=== PATIENT | male | born 1945 | race Caucasian/White ===

== ENCOUNTER 2017-12-14 06:20 | Day surgery (SDC) | payer OTHER ==
[2017-12-09 15:33] LABS: Urine Appearance CLEAR; Urine Bilirubin NEGATIVE (NEG); Urine Blood NEGATIVE (NEG); Urine Color YELLOW; Urine Glucose NEGATIVE (NEG); Urine Protein TRACE (NEG); Urine Specific Gravity 1.025 (1.005-1.030); Urine Urobilinogen 0.2 mg/dL (0.2-1.0); Urine pH 5.5 (5.0-7.0)
[2017-12-09 15:34] LABS: Urine Microscopic Reflex ORDER UMIC
--- NOTE | 2017-12-09 15:34 | RAD REPORT ---
EXAM DESCRIPTION: RAD - Chest Pa And Lat (2 Views) - 12/09/2017 3:24 pm CLINICAL HISTORY: Preop chest, pending prostate surgery COMPARISON: None. TECHNIQUE: PA and lateral views of the chest were obtained. FINDINGS: The lungs are clear of a peripheral infiltrate, mass or failure finding. Minimal scarring changes are present. Diaphragm is flattened with increased retrosternal space. Heart size is normal and central vasculature is within normal limits. No pleural effusion or pneumothorax seen. Midthor acic disc and endplate degenerative changes are present. No acute bone findings seen. No blastic oneal ges to the skeleton identifiable. No aortic abnormality. IMPRESSION: Mild COPD pattern with no acute cardiopulmonary finding.
[2017-12-09 15:46] LABS: Absolute Lymphocytes (CBC) 2.9 K/uL (0.7-4.9); Absolute Neutrophil 9.5 K/uL (1.8-8.0); Basophils % 0.6 % (0-1.3); Eosinophils % 1.2 % (0-4.4); Hematocrit 40.8 % (39.6-49.0); Lymphocytes % 21.4 % (15.3-44.8); MCH 33.9 pg (27.0-35.0); MCV 98.5 fL (80-100); MPV 7.9 fL (7.6-11.3); Monocytes % 7.3 % (3.3-12.3); RBC Red Blood Cell Count 4.14 M/uL (4.33-5.43)
[2017-12-09 15:49] LABS: Protime INR 0.98
[2017-12-09 15:50] LABS: Urine Amorphous Sediment 1+ /HPF (NONE SEEN); Urine Bacteria NONE SEEN /HPF (NONE SEEN); Urine Culture Reflex Order NOT NEEDED; Urine Mucus LIGHT /HPF (NONE SEEN); Urine RBC NONE SEEN /HPF (NONE SEEN)
[2017-12-09 16:13] LABS: Potassium 4.3 mmol/L (3.5-5.1)
--- NOTE | 2017-12-09 16:27 | EKG ---
Test Date: 2017-12-09 Test Time: 15:25:29 [employer]ision [employer] Polisher: SUMANTH MEASUREMENT RESULTS: Intervals: Rate: 76 UT: 152 QRSD: 92 QT: 364 QTc: 409 [place]: P: 77 UT: 152 QRS: 75 T: 66 INTERPRETIVE STATEMENTS: Sinus rhythm with premature atrial complexes Incomplete right bundle branch block Borderline ECG Compared to ECG 03/02/2001 12:11:00 Atrial premature complex(es) now present Incomplete right bundle-branch block now present Myocardial infarct finding no longer present Electronically Signed On 12-09-17 16:26:55 CDT by Bonilla Patino
--- OUTSIDE RECORDS SUMMARY | 2017-12-14 06:50 | XMS REPORT | Continuity of Care Document ---
:1945 Author Organization Interface Problems Problem Status Onset Classification Date Comments Source Date Reported UNK Active 02/12/20 [facility] 17 M54.16 M47.816 Active 02/12/20 [facility] 17 DX" M47.816= Active 10/16/19 [facility] 17 Final: 03/13/2017 [facility] Radiculopathy, lumbar region Diaz's palsy Resolved Problem 10/12/2017 [place] BPH (<span Active Problem 10/12/2017 ID="[id number] [place] [place] [facility]">Confirmed</s [facility] kraft>) Chronic pain Active Problem 10/12/2017 [place] Gastric ulcer Resolved Problem 10/12/2017 [place] HTN (<span Active Problem 10/12/2017 ID="[id number] [place] [place] 9">Confirmed</s [facility] kraft>) Shingles Resolved Problem 10/12/2017 [place] SPONDYLOSIS W/O Active [facility] MYELOPATHY OR RADICULOPA RADICULOPATHY, Active [facility] LUMBAR REGION Medications Medication Details Route Status Patient Ordering Order Source Instructions Provider Date Senokot 2 tab, Route: No Longer PO, Dosing Active 2016 [facility] Weight 66.364, kg, Daily, Start date: 03/11/17 9:00:00 MAT REPAIRER, Duration: 30 day, Stop date: 04/09/17 9:00:00 MAT REPAIRER heparin sodium, 5,000 unit, No Longer porcine 2500 Route: SUB-Q, Active 2016 UNT/ML Injectable Drug form: INJ, Solution Q12H, Dosing Weight 66.364, kg, Start date: 03/11/17 8:00:00 MAT REPAIRER, Duration: 30 day, Stop date: 04/09/17 21:00:00 MAT REPAIRER Famotidine 20 MG 20 mg, 1 tab, Inactive Oral Tablet Route: PO, Drug 2016 [Pepcid] form: TAB, Q12H, Dosing Weight 66.364, kg, Start date: 03/10/17 21:00:00 MAT REPAIRER, Duration: 30 day, Stop date: 04/09/17 9:00:00 MAT REPAIRER Vancomycin 1 gm, Route: Inactive IVPB, Drug 2016 [facility] form: INJ, Q12H, Dosing Weight 66.364, kg, Start date: 03/10/17 21:00:00 MAT REPAIRER, Duration: 4 doses or times, Stop date: 03/12/17 9:00:00 MAT REPAIRER, ABX Indication: Surgical Prophylaxis Docusate Sodium 100 mg, 1 cap, Inactive 100 MG Oral Route: PO, BID, 2016 [facility] Capsule [Colace] Dosing Weight 66.364, kg, Start date: 03/10/17 17:00:00 MAT REPAIRER, Duration: 30 day, Stop date: 04/09/17 9:00:00 MAT REPAIRER Meperidine 12.5 mg, Route: Inactive IVP, Q30Min, 2016 [facility] Dosing Weight 66.364, kg, PRN Other -See Comment, For shivering, Start date: 03/10/17 13:51:00 MAT REPAIRER, Duration: 2 doses or times, Stop date: Limited # of times Ondansetron 4 mg, Route: Inactive IVP, ONCE, 2016 [facility] Dosing Weight 66.364, kg, PRN Nausea & Vomiting, Start date: 03/10/17 13:51:00 MAT REPAIRER Diphenhydramine 12.5 mg, Route: Inactive IVP, Drug form: 2016 [facility] INJ, Q6H, Dosing Weight 66.364, kg, PRN Itching, Start date: 03/10/17 13:51:00 MAT REPAIRER, Duration: 30 day, Stop date: 04/09/17 13:50:00 MAT REPAIRER Albuterol 0.83 2.49 mg, Route: Inactive MG/ML Inhalant NEB, Q20Min, 2016 [facility] Solution Dosing Weight 66.364, kg, PRN Wheezing, Priority: STAT, Start date: 03/10/17 13:51:00 MAT REPAIRER, Duration: 30 day, Stop date: 04/09/17 13:50:00 MAT REPAIRER Flumazenil 0.2 mg, Route: Inactive IVP, PRN, 2016 [facility] Dosing Weight 66.364, kg, PRN Benzodiazepine Reversal, Initial dose, Start date: 03/10/17 13:51:00 MAT REPAIRER, Duration: 30 day, Stop date: 04/09/17 13:50:00 MAT REPAIRER Naloxone 0.4 mg, Route: Inactive 03/[facility] IVP, Q2MIN, 2016 [facility] Dosing Weight 66.364, kg, PRN Narcotic Reversal, Start date: 03/10/17 13:51:00 MAT REPAIRER, Duration: 8 doses or times, Stop date: Limited # of times Hydralazine 10 mg, Route: Inactive IVP, Q20Min, 2016 [facility] Dosing Weight 66.364, kg, PRN Elevated BP, Start date: 03/10/17 13:51:00 MAT REPAIRER, Duration: 2 doses or times, Stop date: Limited # of times Acetaminophen 1,000 mg, Inactive Route: PO, Drug 2016 [facility] form: TAB, ONCE, Dosing Weight 66.364, kg, PRN Pain Score 1-3, Start date: 03/10/17 13:51:00 MAT REPAIRER esmolol 10 mg, Route: Inactive IVP, Q5Min, 2016 [facility] Dosing Weight 66.364, kg, PRN Other -See Comment, Start date: 03/10/17 13:51:00 MAT REPAIRER, Duration: 5 doses or times, Stop date: Limited # of times Labetalol 10 mg, Route: Inactive IVP, Q5Min, 2016 [facility] Dosing Weight 66.364, kg, PRN Elevated BP, Start date: 03/10/17 13:51:00 MAT REPAIRER, Duration: 5 doses or times, Stop date: Limited # of times Oxycodone 10 mg, Route: Inactive PO, Drug form: 2016 [facility] TAB, Q4H, Dosing Weight 66.364, kg, PRN Pain Score 7-10, Start date: 03/10/17 13:51:00 MAT REPAIRER, Duration: 30 day, Stop date: 04/09/17 13:50:00 MAT REPAIRER Fentanyl 25 microgram, Inactive Route: IVP, 2016 [facility] Q5Min, Dosing Weight 66.364, kg, PRN Pain Score 4-6, Priority: Routine, Start date: 03/10/17 13:51:00 MAT REPAIRER, Duration: 4 doses or times, Stop date: Limited # of times Hydromorphone 0.5 mg, Route: Inactive IVP, Q5Min, 2016 [facility] Dosing Weight 66.364, kg, PRN Pain Score 7-10, Start date: 03/10/17 13:51:00 MAT REPAIRER, Duration: 4 doses or times, Stop date: Limited # of times Acetaminophen 325 1 tab, PO, Q4H, Active MG / Hydrocodone PRN Pain, 0 2016 [facility] Bitartrate 5 MG Refill(s) Oral Tablet magnesium citrate 300 ml, Route: Inactive PO, Drug Form: 2016 [facility] LIQ, Dosing Weight 66.364, kg, ONCE, PRN Constipation, Start date: 03/10/17 13:19:00 MAT REPAIRER Acetaminophen 325 1 tab, Route: Inactive MG / Hydrocodone PO, Drug Form: 2016 [facility] Bitartrate 5 MG TAB, Dosing Oral Tablet Weight 66.364, kg, Q4H, PRN Pain, Start date: 03/10/17 13:19:00 MAT REPAIRER, Duration: 30 day, Stop date: 04/09/17 13:18:00 MAT REPAIRER Dilaudid 1 mg, Route: Inactive IV, Q3H, Dosing 2016 [facility] Weight 66.364, kg, PRN Pain, Start date: 03/10/17 13:19:00 MAT REPAIRER, Duration: 30 day, Stop date: 04/09/17 13:18:00 MAT REPAIRER Tylenol 650 mg, Route: Inactive PO, Drug form: 2016 [facility] TAB, Q4H, Dosing Weight 66.364, kg, PRN Pain, Start date: 03/10/17 13:19:00 MAT REPAIRER, Duration: 30 day, Stop date: 04/09/17 13:18:00 MAT REPAIRER Zofran 4 mg, Route: Inactive IV, Drug form: 2016 [facility] INJ, Q8H, Dosing Weight 66.364, kg, PRN Nausea, Start date: 03/10/17 13:19:00 MAT REPAIRER, Duration: 30 day, Stop date: 04/09/17 13:18:00 MAT REPAIRER Sodium Chloride 1,000 mL, Rate: Inactive MH 0.9% IV 1000 mL 75 ml/hr, 2016 Infuse over: 13.3 hr, Route: IV, Dosing Weight 66.364 kg, Total Volume: 1,000, Start date: 03/10/17 13:19:00 MAT REPAIRER, Duration: 30 day, Stop date: 04/09/17 13:18:00 MAT REPAIRER, 1.8, m2 metoclopramide Route: IV, Drug Inactive MH (ANES) form: INJ, 2016, Stop date: 03/10/17 13:09:00 MAT REPAIRER acetaminophen Route: IV, Drug Inactive MH (ANES) 10 mg form: [id number] Start date: 03/10/17 11:46:00 MAT REPAIRER, Stop date: 03/10/17 12:46:00 MAT REPAIRER dexamethasone Route: IV, Drug Inactive MH (ANES) form: INJ, 2016, Stop date: 03/10/17 11:29:00 MAT REPAIRER lidocaine (ANES) Route: IV, Drug Inactive MH form: INJ, 2016, Stop date: 03/10/17 11:19:00 MAT REPAIRER fentaNYL (ANES) Route: IV, Drug Inactive form: INJ, 2016, Stop date: 03/10/17 11:19:00 MAT REPAIRER midazolam (ANES) Route: IV, Drug Inactive form: SOLN, 2016, Stop date: 03/10/17 11:19:00 MAT REPAIRER ondansetron Route: IV, Drug Inactive MH (ANES) form: INJ, 2016, Stop date: 03/10/17 11:19:00 MAT REPAIRER propofol (ANES) Route: IV, Drug Inactive MH form: [id number], Stop date: 03/10/17 11:19:00 MAT REPAIRER rocuronium (ANES) Route: IV, Drug Inactive MH form: INJ, 2016, Stop date: 03/10/17 11:19:00 MAT REPAIRER ketAMINE (ANES) Route: IV, Drug Inactive MH form: [id number], Stop date: 03/10/17 11:19:00 MAT REPAIRER phenylephrine Route: IV, Drug Inactive 11/22/ MH (ANES) form: INJ, 2016 ONCE, Stop date: 03/10/17 11:14:00 MAT REPAIRER vancomycin (ANES) Route: IV, Drug Inactive 1000 mg form: INJ, 2016 Start date: 03/10/17 10:29:00 MAT REPAIRER, Stop date: 03/10/17 11:29:00 MAT REPAIRER Lactated Ringers Route: IV, Inactive Injection IV Total Volume: 2016 (ANES) 1000 mL 1,000, Start date: 03/10/17 10:12:00 MAT REPAIRER, Stop date: 03/10/17 11:12:00 MAT REPAIRER Calcium Chloride 1,000 mL, Rate: Inactive 0.0014 MEQ/ML / 25 ml/hr, 2016 Potassium Infuse over: 40 Chloride 0.004 hr, Route: IV, MEQ/ML / Sodium Dosing Weight Chloride 0.103 66.364 kg, MEQ/ML / Sodium Total Volume: Lactate 0.028 1,000, Start MEQ/ML Injectable date: 03/10/17 Solution 8:52:00 MAT REPAIRER, Duration: 30 day, Stop date: 04/09/17 8:51:00 MAT REPAIRER, 1.8, m2 Fentanyl 25 microgram, Active TOP, 0 2016 Refill(s) Acetaminophen 325 1 tab, PO, Q6H, Active MG / Hydrocodone 0 Refill(s) 2016 Bitartrate 10 MG Oral Tablet losartan 100 mg 100 mg=1 tab, Active oral tablet PO, Daily, 0 2016 Refill(s) NIFEdipine 30 mg 30 mg=1 tab, Active oral tablet, PO, Daily, as 2017 extended release needed during winter season, 0 Refill(s) tamsulosin 0.4 mg 0.4 mg=1 cap, Active oral capsule PO, Daily, as 2016 needed pantoprazole 40 40 mg=1 tab, Active MH mg oral enteric PO, Daily, 0 2016 coated tablet Refill(s) Allergies, Adverse Reactions, Alerts Substance Category Reaction Severity Reaction Status Date Comments Source type Reported penicillins Assertion Drug Active [facility] Immunizations Immunization Date Given Site Status Last Updated Comments Source Results Order Name Results Value Reference Date Interpretation Comments Source Range BLOOD BANK Antibody Negative 03/03 RESULTS Scrn /2016 [facility] (03/03/17 9:27 AM) BLOOD BANK ABO/Rh B POS 03/03 RESULTS /2016 [facility] PANEL B/C Ratio 12 6 - 25 03/03 [facility] CHEM PANEL AGAP 11.0 meq/L 10.0 - 03/03 [facility] 20.0 /2016 [facility] CHEM PANEL Globulin 4.2 g/dL 2.7 - 4.2 03/03 [facility] CHEM PANEL A/G Ratio 0.9 0.7 - 1.6 03/03 [facility] CHEM PANEL eGFR 54 03/03 Result Comment: The eGFR is calculated using the CKD-EPI formula. In most young, healthy individuals the eGFR will be >90 mL/ min/1.73m2. The eGFR declines with age. An eGFR of 60-89 may be normal in mL/min/1.7 some populations, particularly the elderly, for whom the CKD-EPI formula has not been extensively validated. Use of the eGFR is not recommended in the following populations: [facility] 3m2 Individuals with unstable creatinine concentrations, including patients and those with serious co-morbid conditions. Patients with extremes in muscle mass or diet. The data above are obtained from the National Kidney Disease Education Program (NKDEP) which additionally recommends that when the eGFR is used in patients with extremes of body mass index for purposes of drug dosing, the eGFR should be multiplied by the estimated BMI. CHEM PANEL Bili Total 0.6 mg/dL 0.2 - 1.3 03/03 [facility] CHEM PANEL Calcium Lvl 9.2 mg/dL 8.5 - 10.5 03/03 [facility] PAN[facility] CO2 27 meq/L 24 - 32 03/03 [facility] CHEM PANEL Alk Phos 96 unit/L 39 - 136 03/03 [facility] CHEM PANEL Albumin Lvl 3.8 g/dL 3.5 - 5.0 03/03 [facility] CHEM PANEL Total 8.0 g/dL 6.4 - 8.4 03/03 [facility] CHEM PANEL Glucose Lvl 96 mg/dL 70 - 99 03/03 [facility] CHEM PANEL ALT 9 unit/L 0 - 65 03/03 [facility] CHEM PANEL AST 8 unit/L 0 - 37 03/03 [facility] CHEM PANEL BUN 16 mg/dL 7 - 22 03/03 [facility] CHEM PANEL Sodium Lvl 140 meq/L 135 - 145 03/03 [facility] CHEM PANEL Creatinine 1.34 mg/dL 0.50 - 03/03 [facility] Lvl 1.40 [facility] CHEM PANEL Chloride Lvl 106 meq/L 95 - 109 03/03 [facility] CHEM PANEL Potassium 4.0 meq/L 3.5 - 5.1 03/03 Lvl /2016 [facility] HEMATOLOGY Basophils # 0.1 K/CMM 0.0 - 0.2 03/03 [facility] HEMATOLOGY Monocytes # 0.7 K/CMM 0.0 - 0.8 03/03 [facility] HEMATOLOGY Lymphocytes 2.7 K/CMM 1.0 - 5.5 03/03 MH /2016 [facility] HEMATOLOGY Basophils 0.7 % 0.0 - 1.0 03/03 [facility] HEMATOLOGY Eosinophils 0.5 % 0.0 - 4.0 03/03 [facility] HEMAT[facility] Monocytes 6.9 % 2.0 - 12.0 03/03 [facility] HEMAT[facility]Y Lymphocytes 28.5 % 20.0 - 03/03 40.0 [facility] HEMATOLOGY Segs-Bands # 6.0 K/CMM 1.5 - 8.1 03/03 [facility] HEMATOLOGY Segs 63.4 % 45.0 - 03/03 75.0 /2016 [facility] HEMATOLOGY INR 0.94 0.85 - 03/03 1.17 [facility] HEMATOLOGY PT 12.6 s 12.0 - 03/03 14.7 [facility] HEMATOLOGY PTT 31.8 s 22.9 - 03/03 35.8 [facility] HEMATOLOGY MPV 8.0 fL 7.4 - 10.4 03/03 [facility] HEMATOLOGY Platelet 271 K/CMM 133 - 450 03/03 [facility] HEMATOLOGY RDW 12.9 % 11.5 - 03/03 MH 14. [facility] HEMATOLOGY MCHC 33.4 g/dL 32.0 - 03/03 MH 36.0 [facility] HEMATOLOGY MCH 33.0 pg 27.0 - 03/03 MH 31.0 [facility] HEMATOLOGY MCV 98.8 fL 80.0 - 03/03 94.0 [facility] HEMATOLOGY Hct 36.1 % 42.0 - 03/03 MH 54.0 [facility] HEMATOLOGY Hgb 12.1 g/dL 14.0 - 11 MH 18.0 [facility] HEMATOLOGY WBC 9.5 K/CMM 3.7 - 10.4 03/03 [facility] HEMATOLOGY RBC 3.66 M/CMM 4.70 - 11 6.10 [facility] Spine Spine lumbar Patient Name: HILARIA TREVINO 10/21 - lumbar wo wo contrast - [facility] contrast CT : 1945; Age: 71 years y/o Male CT MR: [id number] Read by: Abrahan Rogers MD Dictated Date/time: 10/21/16 10:32 Electronically Signed by: Abrahan Rogers MD 10/21/16 11:11 FINAL REPORT Study: Spine lumbar wo contrast CT 10/21/2016 8:22 AM CDT Ordering Physician: Bijan Mancera MD Comparison: None CT Radiation Dose DLP mGy-cm Clinical Indication: CT DLP 375 mGy-cm PF - lumbar spondylosis, pt states he's been having a lot of back pain x 1 month. He's had 6 previous back surgeries and they believe it might be scar tissue; low back pain Multiple computerized axial tomograms of the lumbar spine were obtained without contrast. 2-D sagittal and coronal reformation images were obtained. Vascular calcification at the normal caliber abdomin al aorta is noted extending into the renal arteries bilaterally. Renovascular calcification is noted at the renal muriel bilaterally. A 12.5 mm cyst is noted at the ventral cortex of the mid left kidney. Minimal lumbar curvature convex to the left. Straightening of usual lumbar lordosis. Lumbar vertebral body heights are maintained. There is no acute fracture, dislocation or spondylolisthesis. Narrowing of the disc space at L2-L3 associated with vacuum phenomena within the disc space, discogenic sclerosis of the opposing endplates and irregularity/ tiny Schmorl's nodes at the inferior endplate of L2 are consistent with degenerative disc disease. Disc spacer is present at L4-L5. Cages are present at L5-S1. Bilateral decompressive laminectomy at L5- S1. Unilateral laminectomy on the right at L4-L5. Pedicular screw and richie fixation is noted at L4 and L5. Metallic spray artifact from the intact hardware is noted diminishing diagnostic detail at the lower lumbar spine. Findings will be described per level as follows: At T12-L1 there is no acute disc herniation, central spinal stenosis or neural foraminal stenosis. Degenerative arthropathy of the apophyseal joints at this level is noted. At L1-L2 there is mild broad-based disc bulge present associated with ligamentous thickening and degenerative arthropathy of the apophyseal joints at this level resulting in moderate to moderately sever e central spinal stenosis. No acute disc herniation or neural foraminal stenosis is noted. At L2-L3 there is moderate broad-based disc bulge present associated with ligamentous thickening and degenerative arthropathy of the apophyseal joints at this level resulting in moderate to moderately s evere central spinal stenosis. Degenerative disc disease is noted at this level. No acute disc herniation. There is encroachment upon the neural foramen bilaterally without neural foraminal stenosis. At L3-L4 detail at this level is somewhat limited by metallic spray artifact; however, there is moderate broad-based disc bulge present associated with ligamentous thickening and degenerative arthropath y of the apophyseal joints at this level resulting in moderately severe central spinal stenosis. No acute disc herniation. There is encroachment upon the neural foramen bilaterally without neural foraminal stenosis. At L4-L5 postoperative changes at this level have been described above. Detail is limited by metallic spray artifact. A 6.4 x 13.3 mm central disc protrusion is noted at this level. There is bony encroa chment upon the neural foramen on the right without neural foraminal stenosis. Left neural foramen is well-maintained. There is no central spinal stenosis. There is demineralization and fragmentation no hermelinda at the left L4-L5 facet joint and left lamina at this level. Unilateral laminectomy defect on the right at this level. At L5-S1, postoperative changes at this level have been described above. Detail is limited by metallic spray artifact. There is bony encroachment upon the neural foramen bilaterally resulting in areas o f neural foraminal stenosis. Broad-based disc bulge is present. No central spinal stenosis or acute disc herniation. Patchy demineralization and sclerosis are noted at the residual L5-S1 facet joints bilaterally. IMPRESSION: 1. Postoperative changes are noted at L4-L5 and L5-S1 as detailed above with evaluation limited by metallic spray artifact at these levels. 2. At L5-S1, there is bony encroachment upon the neural foramen bilaterally resulting in segmental areas of neural foraminal stenosis. At L4-L5 , there is bony encroachment upon the right neural foramen without neural foraminal stenosis. At L2-L3 and L3-L4, there is bony encroachment upon the neural foramen bilaterally without neural foraminal stenosis. 3. Moderately severe degenerative disc disease at L2-L3. 4. Lumbar spondylosis as detailed per level above. At L3-L4, there is moderately severe central spinal stenosis related to lumbar spondylosis. At L1- L2 and L2-L3, there is moderate to moderately severe central spinal stenosis related to lumbar spondylosis. 5. Lumbar facet arthrosis. SL: [id number] Vital Signs Vital Sign Value Date Comments Source BMI Calculated 21.2 04/30/2017 [facility] [place] [facility] Weight 65.114 04/30/2017 [facility] Height 175.26 cm 04/30/2017 [facility] Weight 65.199 03/25/2017 [facility] BMI Calculated 21.23 03/25/2017 [facility] Height 175.26 cm 03/25/2017 [facility] Systolic (mm Hg) 136 03/25/2017 [facility] Diastolic (mm Hg) 79 03/25/2017 [facility] Heart Rate 86 03/25/2017 [facility] Temperature Oral (F) 99.1 F 03/25/2017 [facility] Systolic (mm Hg) 129 03/10/2017 [facility] Diastolic (mm Hg) 80 03/10/2017 [facility] Systolic (mm Hg) 131 03/10/2017 [facility] Diastolic (mm Hg) 71 03/10/2017 [facility] Respitory Rate 17 03/10/2017 [facility] Respitory Rate 14 03/10/2017 [facility] Systolic (mm Hg) 115 03/10/2017 [facility] Diastolic (mm Hg) 74 03/10/2017 [facility] Respitory Rate 15 03/10/2017 [facility] BMI Calculated 21.61 03/03/2017 [facility] Weight 66.364 03/03/2017 [facility] Height 175.26 cm 03/03/2017 [facility] Encounters Location Location Encounter Encounter Reason Attending ADM DC Status Source Details Type Number For Provider Date Date Visit Outpatient [id number] BIJAN 10/[address] [facility] Outpatient [id number] Bijan 10/21 10/22 [facility] /2016 [facility] Outpatient [id number] BIJAN 11/[address] [facility] [place] Outpatient [id number] BIJAN [facility]05 [facility] [place] [facility] [id number] BIJAN [facility]/10 [id number] Bijan 03/10 03/10 [facility] /2016 [facility] Phone [id number] 03/15 03/17 [facility]2016 [facility] [id number] ROXIE 03/25 [facility] [id number] Roxie 03/25 03/26 [facility]2016 [facility] Phone [id number] 04/20 04/22 [facility] Message /2017 [facility] Outpatient [id number] ROXIE 04/22 [facility] [place] [facility] [id number] Roxie 04/22 04/22 [facility] Pre-Reg [facility] /2017 [facility] [id number] NESHKORO 04/30 [facility] [place] [facility] [id number] Bijan 04/30 05/01 [facility] Fi[facility] /2017 [facility] [id number] ROXIE 06/11 [facility] [id number] Roxie 06/11 06/11 [facility] Pre-Reg [facility] /2017 [facility] Phone [id number] 10/08 10/10 [facility] [place] [place] Message /2017 Neuro Procedures Procedure Code Date Perfomer Comments Source Appendectomy [id number] [facility] Carpal [id number] x2 [facility] tunnel<sup>1</sup> Cataracts<sup>2</s [id number] x2 [facility] up> Hip replacement [id number] [facility] History of back [id number] [facility] surgery History of knee [id number] x 4 [facility] surgery<sup>3</sup > Appendectomy [id number] [facility] Carpal [id number] x2 [facility] tunnel<sup>1</sup> Cataracts<sup>2</s [id number] x2 [facility]> Hip replacement [id number] [facility] History of back [id number] [facility] History of knee [id number] x 4 [facility]<sup>3</sup >
--- OUTSIDE RECORDS SUMMARY | 2017-12-14 06:51 | XMS REPORT | Summary of Care ---
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 Vital Signs No data available for this section Problem List Condition Effective Dates Status Health Status Informant Diaz's palsy(Confirmed) Resolved BPH (benign prostatic Active hyperplasia)(Confirmed) Chronic pain(Confirmed) Active Gastric ulcer(Confirmed) Resolved HTN (hypertension)(Confirmed) Active Shingles(Confirmed) Resolved Allergies, Adverse Reactions, Alerts Substance Reaction Severity Status penicillins Active Medications No data available for this section Results No data available for this section Immunizations No data available for this section Procedures Procedure Date Related Diagnosis Body Site Appendectomy Carpal tunnel1 Cataracts2 Hip replacement History of back surgery History of knee surgery3 [id number] 4 Social History Social History Type Response Alcohol Past, Type Beer. Frequency: Daily. Last use: 4 months ago. Smoking Status Current every day smoker; Type: Cigars; Exposure to Tobacco Smoke None; Cigarette Smoking Last 365 Days Yes; Reg Smoking Cessation Counseling No Assessment and Plan No data available for this section
--- OUTSIDE RECORDS SUMMARY | 2017-12-14 06:51 | XMS REPORT | Summary of Care ---
:1945 Author Organization [facility] Neurosurgery [facility] Address [address], [address] [place] [address]- Encounter HQ Encntr_aliphilly(FIN) [id number] Date(s): 04/20/17 - 04/21/17 [facility] [address], [address] [place], [place] [address] [place] [phone] Vital Signs No data available for this [...] of back surgery History of knee surgery3 [id number] 4 Social History Social History Type Response Alcohol Past, Type Beer. Frequency: Daily. Last use: 4 months ago. Smoking Status Current every day smoker; Type: Cigars; Exposure to Tobacco Smoke None; Cigarette Smoking Last 365 Days Yes; Reg Smoking Cessation Counseling No Assessment and Plan No data available for this section
--- OUTSIDE RECORDS SUMMARY | 2017-12-14 06:51 | XMS REPORT | Summary of Care ---
:1945 Author Organization [facility] Neurosurgery [facility] [place] Address [address], [address] [place] [address]- Encounter HQ Encntr_aliphilly(FIN) [id number] Date(s): 03/15/17 - 03/16/17 [facility] [address], [address] [place], [place] [address] [phone] Vital Signs No data available for this [...] of back surgery History of knee surgery3 [id number] 4 Social History Social History Type Response Alcohol Past, Type Beer. Frequency: Daily. Last use: 4 months ago. Smoking Status Current every day smoker; Type: Cigars; Exposure to Tobacco Smoke None; Cigarette Smoking Last 365 Days Yes; Reg Smoking Cessation Counseling No Assessment and Plan No data available for this section
--- OUTSIDE RECORDS SUMMARY | 2017-12-14 06:51 | XMS REPORT | Summary of Care ---
:[address] [facility] Address [address] [place], [place] [address]- Encounter HQ Guillerminantr_aliphilly(FIN) [id number] Date(s): 10/21/16 - 10/21/16 [facility] [address] [place] [address]- Discharge Disposition: Home or Self Care Attending Physician: Bijan Mancera MD Referring Physician: Bijan Mancera MD Vital Signs No data available for this section Problem List Condition Effective Dates Status Health Status Informant Diaz's palsy(Confirmed) Resolved Shingles(Confirmed) Resolved Allergies, Adverse Reactions, Alerts No data available for this section Medications No data available for this section Results No data available for this section Immunizations No data available for this section Procedures Procedure Date Related Diagnosis Body Site Appendectomy Carpal tunnel1 Cataracts2 Hip replacement History of back surgery History of knee surgery3 [id number] 4 Social History Social History Type Response Alcohol Current, Type Beer. Frequency: Daily. Smoking Status Current every day smoker; Type: Cigars; Exposure to Tobacco Smoke None; Cigarette Smoking Last 365 Days Yes; Reg Smoking Cessation Counseling No Assessment and Plan No data available for this section
--- OUTSIDE RECORDS SUMMARY | 2017-12-14 06:51 | XMS REPORT | Summary of Care ---
:1945 Author Organization [facility] Spine [facility] Address [address] [place] [address], [facility] [address] [place] [address]- Encounter HQ Encntr_aliphilly(FIN) [id number] Date(s): 10/08/17 - 10/09/17 [facility] Spine [address] [place] [address] [phone] Vital Signs No data available for this [...] Procedures Procedure Date Related Diagnosis Body Site Status Appendectomy Completed Carpal tunnel1 Completed Cataracts2 Completed Hip replacement Completed History of back surgery Completed History of knee surgery3 Completed [id number] 4 Social History Social History Type Response Alcohol Past, Type Beer. Frequency: Daily. Last use: 4 months ago. Smoking Status Current every day smoker; Type: Cigars; Exposure to Tobacco Smoke None; Cigarette Smoking Last 365 Days Yes; Reg Smoking Cessation Counseling No entered on: 04/30/17 Assessment and Plan No data available for this section
--- OUTSIDE RECORDS SUMMARY | 2017-12-14 06:51 | XMS REPORT | Summary of Care ---
:1945 Author Organization [facility] Neurosurgery [facility] Address [address] [place] [address]- Encounter HQ Mary_camilla(FIN) [id number] Date(s): 04/30/17 - 04/30/17 [facility] [address] [facility] [place] [phone] Discharge Disposition: Home or Self Care Attending Physician: Bijan Mancera MD Vital Signs Most recent to oldest [Reference Range]: 1 Height 175.26 cm (04/30/17 9:47 AM) Weight 65.114 kg (04/30/17 9:47 AM) Body Mass Index 21.2 m2 (04/30/17 9:47 AM) Problem List Condition Effective Dates Status Health [...] surgery Completed History of knee surgery3 Completed [id number] 4 Social History Social History Type Response Alcohol Past, Type Beer. Frequency: Daily. Last use: 4 months ago. Smoking Status Current every day smoker; Type: Cigars; Exposure to Tobacco Smoke None; Cigarette Smoking Last 365 Days Yes; Reg Smoking Cessation Counseling No entered on: 04/30/17 Assessment and Plan No data available for this section
--- OUTSIDE RECORDS SUMMARY | 2017-12-14 06:51 | XMS REPORT | Summary of Care ---
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 Frequency: Daily. Last use: 4 months ago. Smoking Status Current every day smoker; Type: Cigars; Exposure to Tobacco Smoke None; Cigarette Smoking Last 365 Days Yes; Reg Smoking Cessation Counseling No entered on: 04/30/17 Assessment and Plan No data available for this section
--- OUTSIDE RECORDS SUMMARY | 2017-12-14 06:51 | XMS REPORT | Summary of Care ---
:[address] [facility] Address [address] [place], [place] [address]- Encounter HQ Dmitrir_camilla(FIN) [id number] Date(s): 03/10/17 - 03/10/17 [facility] [address] [place] [address]- Final: Radiculopathy, lumbar region Discharge Disposition: Home or Self Care Attending Physician: Bijan Mancera MD Admitting Physician: Bijan Mancera MD Referring Physician: Bijan Mancera MD Vital Signs Most recent to oldest 1 2 3 [Reference Range]: Height 175.26 cm (03/03/17 9:17 AM) Blood Pressure [90-140/60-90 129/80 mmHg 131/71 mmHg 115/74 mmHg mmHg] (03/10/17 3:15 PM) (03/10/17 2:30 PM) (03/10/17 2:15 PM) Respiratory Rate [14-20 17 BRMIN 14 BRMIN 15 BRMIN BRMIN] (03/10/17 2:30 PM) (03/10/17 2:15 PM) (03/10/17 2:00 PM) Weight 66.364 kg (03/03/17 9:17 AM) Body Mass Index 21.61 m2 (03/03/17 9:17 AM) Problem List Condition Effective Dates Status Health Status Informant Diaz's palsy(Confirmed) Resolved BPH (benign prostatic Active hyperplasia)(Confirmed) Chronic pain(Confirmed) Active Gastric ulcer(Confirmed) Resolved HTN (hypertension)(Confirmed) Active Shingles(Confirmed) Resolved Allergies, Adverse Reactions, Alerts Substance Reaction Severity Status penicillins Active Medications acetaminophen (ANES) 10 mg Route: IV, Drug form: INJ, Start date: 03/10/17 11:46:00 VESSEL WELDER, Stop date: 12:46:00 VESSEL WELDER Start Date: 03/10/17 Stop Date: 03/10/17 Status: Completedacetaminophen-hydrocodone 325 mg-10 mg oral tablet 1 tab, PO, Q6H, 0 Refill(s) Start Date: 03/03/17 Status: Orderedacetaminophen-hydrocodone 325 mg-5 mg oral tablet 1 tab, PO, Q4H, PRN Pain, 0 Refill(s) Start Date: 03/10/17 Status: Orderedacetaminophen-hydrocodone 325 mg-5 mg oral tablet 1 tab, PO, Q4H, PRN Pain, 0 Refill(s) Start Date: 03/10/17 Status: Orderedacetaminophen-hydrocodone 325 mg-5 mg oral tablet 1 tab, Route: PO, Drug Form: TAB, Dosing Weight 66.364, kg, Q4H, PRN Pain, Start date: 03/10/17 13:19:00 VESSEL WELDER, Duration: 30 day, Stop date: 04/09/17 13:18: 00 VESSEL WELDER Start Date: 03/10/17 Stop Date: 03/10/17 Status: Discontinuedacetaminophen-hydrocodone 325 mg-5 mg oral tablet 1 tab, Route: PO, Drug Form: TAB, Dosing Weight 66.364, kg, Q4H, PRN Pain, Start date: 03/10/17 13:19:00 VESSEL WELDER, Duration: 30 day, Stop date: 04/09/17 13:18: 00 VESSEL WELDER Start Date: 03/10/17 Stop Date: 03/10/17 Status: DiscontinuedANES acetaminophen 1,000 mg, Route: PO, Drug form: TAB, ONCE, Dosing Weight 66.364, kg, PRN Pain Score 1-3, Start date:03/10/17 13:51:00 VESSEL WELDER Start Date: 03/10/17 Stop Date: 03/10/17 Status: DiscontinuedANES albuterol 0.083% inhalation solution 2.49 mg, Route: NEB, Q20Min, Dosing Weight 66.364, kg, PRN Wheezing, Priority: STAT, Start date: 03/10/17 13:51:00 VESSEL WELDER, Duration: 30 day, Stop date: 04/09/17 13:50:00 VESSEL WELDER Start Date: 03/10/17 Stop Date: 03/10/17 Status: DiscontinuedANES diphenhydrAMINE 12.5 mg, Route: IVP, Drug form: INJ, Q6H, Dosing Weight 66.364, kg, PRN Itching , Start date: 03/10/17 13:51:00 VESSEL WELDER, Duration: 30 day, Stop date: 04/09/17 13:50 :00 VESSEL WELDER Start Date: 03/10/17 Stop Date: 03/10/17 Status: DiscontinuedANES esmolol 10 mg, Route: IVP, Q5Min, Dosing Weight 66.364, kg, PRN Other -See Comment, Start date: 03/10/17 13:51:00 VESSEL WELDER, Duration: 5 doses or times, Stop date: Limited # of times Start Date: 03/10/17 Stop Date: 03/10/17 Status: DiscontinuedANES fentaNYL 25 microgram, Route: IVP, Q5Min, Dosing Weight 66.364, kg, PRN Pain Score 4-6, Priority: Routine, Start date: 03/10/17 13:51:00 VESSEL WELDER, Duration: 4 doses or times , Stop date: Limited # of times Start Date: 03/10/17 Stop Date: 03/10/17 Status: CompletedANES flumazenil 0.2 mg, Route: IVP, PRN, Dosing Weight 66.364, kg, PRN Benzodiazepine Reversal, Initial dose, Start date: 03/10/17 13:51:00 VESSEL WELDER, Duration: 30 day, Stop date: 13:50:00 VESSEL WELDER Start Date: 03/10/17 Stop Date: 03/10/17 Status: DiscontinuedANES hydrALAZINE 10 mg, Route: IVP, Q20Min, Dosing Weight 66.364, kg, PRN Elevated BP, Start date : 03/10/17 13:51:00 VESSEL WELDER, Duration: 2 doses or times, Stop date: Limited # of times Start Date: 03/10/17 Stop Date: 03/10/17 Status: DiscontinuedANES HYDROmorphone 0.5 mg, Route: IVP, Q5Min, Dosing Weight 66.364, kg, PRN Pain Score 7-10, Start date: 03/10/17 13:51:00 VESSEL WELDER, Duration: 4 doses or times, Stop date: Limited # of times Start Date: 03/10/17 Stop Date: 03/10/17 Status: DiscontinuedANES labetalol 10 mg, Route: IVP, Q5Min, Dosing Weight 66.364, kg, PRN Elevated BP, Start date : 03/10/17 13:51:00 VESSEL WELDER, Duration: 5 doses or times, Stop date: Limited # of times Start Date: 03/10/17 Stop Date: 03/10/17 Status: DiscontinuedANES meperidine 12.5 mg, Route: IVP, Q30Min, Dosing Weight 66.364, kg, PRN Other -See Comment, For shivering, Start date: 03/10/17 13:51:00 VESSEL WELDER, Duration: 2 doses or times, Stop date: Limited # of times Start Date: 03/10/17 Stop Date: 03/10/17 Status: DiscontinuedANES naloxone 0.4 mg, Route: IVP, Q2MIN, Dosing Weight 66.364, kg, PRN Narcotic Reversal, Start date: 03/10/17 13:51:00 VESSEL WELDER, Duration: 8 doses or times, Stop date: Limited # of times Start Date: 03/10/17 Stop Date: 03/10/17 Status: DiscontinuedANES ondansetron 4 mg, Route: IVP, ONCE, Dosing Weight 66.364, kg, PRN Nausea & Vomiting, Start date: 03/10/17 13:51:00 VESSEL WELDER Start Date: 03/10/17 Stop Date: 03/10/17 Status: DiscontinuedANES oxyCODONE 10 mg, Route: PO, Drug form: TAB, Q4H, Dosing Weight 66.364, kg, PRN Pain Score 7-10, Start date: 03/10/17 13:51:00 VESSEL WELDER, Duration: 30 day, Stop date: 04/09/17 13:50:00 VESSEL WELDER Start Date: 03/10/17 Stop Date: 03/10/17 Status: DiscontinuedANES oxyCODONE 5 mg, Route: PO, Drug form: TAB, Q4H, Dosing Weight 66.364, kg, PRN Pain Score 4 -6, Start date: 03/10/17 13:51:00 VESSEL WELDER, Duration: 30 day, Stop date: 04/09/17 13: 50:00 VESSEL WELDER Start Date: 03/10/17 Stop Date: 03/10/17 Status: DiscontinuedColace 100 mg oral capsule 100 mg, 1 cap, Route: PO, BID, Dosing Weight 66.364, kg, Start date: 03/10/17 17 :00:00 VESSEL WELDER, Duration: 30 day, Stop date: 04/09/17 9:00:00 VESSEL WELDER Start Date: 03/10/17 Stop Date: 03/10/17 Status: Discontinueddexamethasone (ANES) Route: IV, Drug form: INJ, ONCE, Stop date: 03/10/17 11:29:00 VESSEL WELDER Start Date: 03/10/17 Stop Date: 03/10/17 Status: CompletedDilaudid 1 mg, Route: IV, Q3H, Dosing Weight 66.364, kg, PRN Pain, Start date: 03/10/17 13:19:00 VESSEL WELDER, Duration: 30 day, Stop date: 04/09/17 13:18:00 VESSEL WELDER Start Date: 03/10/17 Stop Date: 03/10/17 Status: DiscontinuedDilaudid 0.5 mg, Route: IV, Q3H, Dosing Weight 66.364, kg, PRN Pain, Start date: 13:19:00 VESSEL WELDER, Duration: 30 day, Stop date: 04/09/17 13:18:00 VESSEL WELDER Start Date: 03/10/17 Stop Date: 03/10/17 Status: DiscontinuedfentaNYL 25 microgram, TOP, 0 Refill(s) Start Date: 03/03/17 Status: OrderedfentaNYL (ANES) Route: IV, Drug form: INJ, ONCE, Stop date: 03/10/17 11:19:00 VESSEL WELDER Start Date: 03/10/17 Stop Date: 03/10/17 Status: Completedheparin 5000 units/mL injectable solution 5,000 unit, Route: SUB-Q, Drug form: INJ, Q12H, Dosing Weight 66.364, kg, Start date: 03/11/17 8:00:00 VESSEL WELDER, Duration: 30 day, Stop date: 04/09/17 21:00:00 VESSEL WELDER Start Date: 03/11/17 Stop Date: 03/10/17 Status: CanceledketAMINE (ANES) Route: IV, Drug form: INJ, ONCE, Stop date: 03/10/17 11:19:00 VESSEL WELDER Start Date: 03/10/17 Stop Date: 03/10/17 Status: CompletedLactated Ringers Injection IV (ANES) 1000 mL Route: IV, Total Volume: 1,000, Start date: 03/10/17 10:12:00 VESSEL WELDER, Stop date: 11:12:00 VESSEL WELDER Start Date: 03/10/17 Stop Date: 03/10/17 Status: CompletedLactated Ringers Injection IV 1000 mL 1,000 mL, Rate: 25 ml/hr, Infuse over: 40 hr, Route: IV, Dosing Weight 66.364 kg , Total Volume: 1,000, Start date: 03/10/17 8:52:00 VESSEL WELDER, Duration: 30 day, Stop date: 04/09/17 8:51:00 VESSEL WELDER, 1.8, m2 Start Date: 03/10/17 Stop Date: 03/10/17 Status: Discontinuedlidocaine (ANES) Route: IV, Drug form: INJ, ONCE, Stop date: 03/10/17 11:19:00 VESSEL WELDER Start Date: 03/10/17 Stop Date: 03/10/17 Status: Completedlosartan 100 mg oral tablet 100 mg=1 tab, PO, Daily, 0 Refill(s) Start Date: 03/03/17 Status: Orderedmagnesium citrate 300 ml, Route: PO, Drug Form: LIQ, Dosing Weight 66.364, kg, ONCE, PRN Constipation, Start date: 03/10/17 13:19:00 VESSEL WELDER Start Date: 03/10/17 Stop Date: 03/10/17 Status: Discontinuedmetoclopramide (ANES) Route: IV, Drug form: INJ, ONCE, Stop date: 03/10/17 13:09:00 VESSEL WELDER Start Date: 03/10/17 Stop Date: 03/10/17 Status: Completedmidazolam (ANES) Route: IV, Drug form: SOLN, ONCE, Stop date: 03/10/17 11:19:00 VESSEL WELDER Start Date: 03/10/17 Stop Date: 03/10/17 Status: CompletedNIFEdipine 30 mg oral tablet, extended release 30 mg=1 tab, PO, Daily, as needed during winter season, 0 Refill(s) Start Date: 03/03/17 Status: Orderedondansetron (ANES) Route: IV, Drug form: INJ, ONCE, Stop date: 03/10/17 11:19:00 VESSEL WELDER Start Date: 03/10/17 Stop Date: 03/10/17 Status: Completedpantoprazole 40 mg oral enteric coated tablet 40 mg=1 tab, PO, Daily, 0 Refill(s) Start Date: 03/03/17 Status: OrderedPepcid 20 mg oral tablet 20 mg, 1 tab, Route: PO, Drug form: TAB, Q12H, Dosing Weight 66.364, kg, Start date: 03/10/17 21:00:00 VESSEL WELDER, Duration: 30 day, Stop date: 04/09/17 9:00:00 VESSEL WELDER Start Date: 03/10/17 Stop Date: 03/10/17 Status: Discontinuedphenylephrine (ANES) Route: IV, Drug form: INJ, ONCE, Stop date: 03/10/17 11:14:00 VESSEL WELDER Start Date: 03/10/17 Stop Date: 03/10/17 Status: Completedpropofol (ANES) Route: IV, Drug form: INJ, ONCE, Stop date: 03/10/17 11:19:00 VESSEL WELDER Start Date: 03/10/17 Stop Date: 03/10/17 Status: Completedrocuronium (ANES) Route: IV, Drug form: INJ, ONCE, Stop date: 03/10/17 11:19:00 VESSEL WELDER Start Date: 03/10/17 Stop Date: 03/10/17 Status: CompletedSenokot 2 tab, Route: PO, Dosing Weight 66.364, kg, Daily, Start date: 03/11/17 9:00:00 VESSEL WELDER, Duration: 30 day, Stop date: 04/09/17 9:00:00 VESSEL WELDER Start Date: 03/11/17 Stop Date: 03/10/17 Status: CanceledSodium Chloride 0.9% IV 1000 mL 1,000 mL, Rate: 75 ml/hr, Infuse over: 13.3 hr, Route: IV, Dosing Weight 66.364 kg, Total Volume: 1,000, Start date: 03/10/17 13:19:00 VESSEL WELDER, Duration: 30 day, Stop date: 04/09/17 13:18:00 VESSEL WELDER, 1.8, m2 Start Date: 03/10/17 Stop Date: 03/10/17 Status: Discontinuedtamsulosin 0.4 mg oral capsule 0.4 mg=1 cap, PO, Daily, as needed Start Date: 03/03/17 Status: OrderedTylenol 650 mg, Route: PO, Drug form: TAB, Q4H, Dosing Weight 66.364, kg, PRN Pain, Start date: 03/10/17 13:19:00 VESSEL WELDER, Duration: 30 day, Stop date: 04/09/17 13:18: 00 VESSEL WELDER Start Date: 03/10/17 Stop Date: 03/10/17 Status: Discontinuedvancomycin (ANES) 1000 mg Route: IV, Drug form: INJ, Start date: 03/10/17 10:29:00 VESSEL WELDER, Stop date: 11:29:00 VESSEL WELDER Start Date: 03/10/17 Stop Date: 03/10/17 Status: Completedvancomycin (SCIP) 1 gm, Route: IVPB, Drug form: INJ, Q12H, Dosing Weight 66.364, kg, Start date: 03/10/17 21:00:00 VESSEL WELDER, Duration: 4 doses or times, Stop date: 03/12/17 9:00:00 VESSEL WELDER, ABX Indication: Surgical Prophylaxis Start Date: 03/10/17 Stop Date: 03/10/17 Status: DiscontinuedZofran 4 mg, Route: IV, Drug form: INJ, Q8H, Dosing Weight 66.364, kg, PRN Nausea, Start date: 03/10/17 13:19:00 VESSEL WELDER, Duration: 30 day, Stop date: 04/09/17 13:18: 00 VESSEL WELDER Start Date: 03/10/17 Stop Date: 03/10/17 Status: Discontinued Results BLOOD BANK RESULTS Most recent to oldest [Reference Range]: 1 ABO/Rh B POS *Unknown* (03/03/17 9:27 AM) Antibody Scrn Negative (03/03/17 9:27 AM) ELECTROLYTES Most recent to oldest [Reference Range]: 1 Sodium Lvl [135-145 mEq/L] 140 mEq/L (03/03/17 9:27 AM) Potassium Lvl [3.5-5.1 mEq/L] 4.0 mEq/L (03/03/17 9:27 AM) Chloride Lvl [95-109 mEq/L] 106 mEq/L (03/03/17 9:27 AM) CO2 [24-32 mEq/L] 27 mEq/L (03/03/17 9:27 AM) AGAP [10.0-20.0 mEq/L] 11.0 mEq/L (03/03/17 9:27 AM) CHEM PANEL Most recent to oldest [Reference Range]: 1 Creatinine Lvl [0.50-1.40 mg/dL] 1.34 mg/dL (03/03/17 9:27 AM) eGFR 54 mL/min/1.73m2 1 *NA* (03/03/17 9:27 AM) BUN [7-22 mg/dL] 16 mg/dL (03/03/17 9:27 AM) B/C Ratio [6-25] 12 (03/03/17:27 AM) Glucose Lvl [70-99 mg/dL] 96 mg/dL (03/03/17 9:27 AM) Total Protein [6.4-8.4 g/dL] 8.0 g/dL (03/03/17 9:27 AM) Albumin Lvl [3.5-5.0 g/dL] 3.8 g/dL (03/03/17 9:27 AM) Globulin [2.7-4.2 g/dL] 4.2 g/dL (03/03/17 9:27 AM) A/G Ratio [0.7-1.6] 0.9 (03/03/17 9:27 AM) Calcium Lvl [8.5-10.5 mg/dL] 9.2 mg/dL (03/03/17 9:27 AM) ALT [0-65 unit/L] 9 unit/L (03/03/17 9:27 AM) AST [0-37 unit/L] 8 unit/L (03/03/17 9:27 AM) Alk Phos [39-136 unit/L] 96 unit/L (03/03/17 9:27 AM) Bili Total [0.2-1.3 mg/dL] 0.6 mg/dL (03/03/17 9:27 AM) 1Result Comment: The eGFR is calculated using the CKD-EPI formula. In most young , healthy individualsthe eGFR will be >90 mL/min/1.73m2. The eGFR declines with age. An eGFR of 60-89 may be normal insome populations, particularly the elderly, for whom the CKD-EPI formula has not been extensively validated. Use of the eGFR is not recommended in the following populations: Individuals with unstable creatinine concentrations, including patients and those with serious co-morbid conditions. Patients with extremes in muscle mass or diet. The data above are obtained from the National Kidney Disease Education Program ( NKDEP) which additionally recommends that when the eGFR is used in patients with extremes of body mass index for purposesof drug dosing, the eGFR should be multiplied by the estimated BMI.HEMATOLOGY Most recent to oldest [Reference Range]: 1 WBC [3.7-10.4 K/CMM] 9.5 K/CMM (03/03/17 9:27 AM) RBC [4.70-6.10 M/CMM] 3.66 M/CMM *LOW* (03/03/17 9:27 AM) Hgb [14.0-18.0 g/dL] 12.1 g/dL *LOW* (03/03/17 9:27 AM) Hct [42.0-54.0 %] 36.1 % *LOW* (03/03/17 9:27 AM) MCV [80.0-94.0 fL] 98.8 fL *HI* (03/03/17:27 AM) MCH [27.0-31.0 pg] 33.0 pg *HI* (03/03/17 9:27 AM) MCHC [32.0-36.0 g/dL] 33.4 g/dL (03/03/17 9:27 AM) RDW [11.5-14.5 %] 12.9 % (03/03/17 9:27 AM) Platelet [133-450 K/CMM] 271 K/CMM (03/03/17 9:27 AM) MPV [7.4-10.4 fL] 8.0 fL (03/03/17 9:27 AM) Segs [45.0-75.0 %] 63.4 % (03/03/17 9:27 AM) Lymphocytes [20.0-40.0 %] 28.5 % (03/03/17 9:27 AM) Monocytes [2.0-12.0 %] 6.9 % (03/03/17 9:27 AM) Eosinophils [0.0-4.0 %] 0.5 % (03/03/17 9:27 AM) Basophils [0.0-1.0 %] 0.7 % (03/03/17 9:27 AM) Segs-Bands # [1.5-8.1 K/CMM] 6.0 K/CMM (03/03/17 9:27 AM) Lymphocytes # [1.0-5.5 K/CMM] 2.7 K/CMM (03/03/17 9:27 AM) Monocytes # [0.0-0.8 K/CMM] 0.7 K/CMM (03/03/17 9:27 AM) Basophils # [0.0-0.2 K/CMM] 0.1 K/CMM (03/03/17 9:27 AM) PT [12.0-14.7 seconds] 12.6 seconds (03/03/17 9:27 AM) INR [0.85-1.17] 0.94 (03/03/17 9:27 AM) PTT [22.9-35.8 seconds] 31.8 seconds (03/03/17 9:27 AM) Immunizations No data available for this section Procedures Procedure Date Related Diagnosis Body Site Appendectomy Carpal tunnel1 Cataracts2 Hip replacement History of back surgery History of knee surgery3 [id number] Social History Social History Type Response Alcohol Past, Type Beer. Frequency: Daily. Last use: 4 months ago. Smoking Status Current every day smoker; Type: Cigars; Exposure to Tobacco Smoke None; Cigarette Smoking Last 365 Days Yes; Reg Smoking Cessation Counseling No Assessment and Plan Extracted from: Title: Clinical Document Author: Bijan Mancera MD Date: 03/10/17 Neurosurgery Discharge Summary Admit Date: 03/10/2017 Discharge Date: 03/10/2017 Diagnosis: LEFT L4-L5 retained hardware, LEFT L5-S1 foraminal stenosis Procedure: LEFT L4-L5 removal of hardware, LEFT L5-S1 far lateral transpedicular foraminotomy Surgeon: Fiordaliza Hospital Course: Patient admitted, underwent above procedure, tolerated well. Ambulated, urinated, tolerated oral POs, safe to discharge home in stable condition PE: Preop AFVSS IPs Q G AT EHL R 5 5 5 5 5 L 5 5 5 4- 4- Postop AFVSS IPs Q G AT EHL R 5 5 5 5 5 L 5 5 5 4- 4- c/d/i PLAN: Follow-up in [address] Mancera at [phone] Extracted from: Title: Clinical Document Author: Bijan Mancera MD Date: 03/10/17 PATIENT NAME: HILARIA TREVINO DATE OF OPERATION/PROCEDURE: 03/10/2017 *_*_* PREOPERATIVE DIAGNOSIS: 1. LEFT L5 radiculopathy secondary to a LEFT foraminal L5-S1 stenosis. 2. Retained L4-L5 Medtronic Sextant instrumentation preventing access to the LEFT L5-S1 foramen. 3. Multiple (suspected 6) prior lumbar surgeries resulting in L4-S1 laminectomy and fusion. POSTOPERATIVE DIAGNOSIS: 1. LEFT L5 radiculopathy secondary to a LEFT foraminal L5-S1 stenosis. 2. Retained L4-L5 Medtronic Sextant instrumentation preventing access to the LEFT L5-S1 foramen. 3. Multiple (suspected 6) prior lumbar surgeries resulting in L4-S1 laminectomy and fusion. PROCEDURES PERFORMED: 1. REVISION LEFT paramedian, far lateral approach to the lumbar spine from L4- S1. 2. Removal of LEFT L4-L5 Medtronic Sextant instrumentation (pedicle screws, set screws, rods) 3. LEFT L5-S1 far lateral transpedicular foraminotomy. 4. Use of microscope for decompression. 5. Use of radiographs vertebral level localization and for confirmation. SURGEON: Bijan Mancera MD [employer] TEACHER: Marko Mendosa ANESTHESIA: General endotracheal tube anesthesia. COMPLICATIONS: None. IV FLUIDS: 1100 cc crystalloid URINE OUTPUT: NA ESTIMATED BLOOD LOSS: 50 cc INDICATIONS FOR SURGERY: 71 yo M with LEFT L5-S1 foraminal stenosis, retained L4-L5 instrumentation blocking access to LEFT L5-S1, and history of multiple prior lumbar surgeries. Patient has had severe LEFT leg and groin pain since 06/2016. Of note, he has had 6 lumbar surgeries from 1999 to 2012 and RIGHT hip surgery in 2012, and has been seeing pain management for several years. CT and MRI lumbar shows what appears to be L4-S1 laminectomy. There is L5-S1 ALIF with dual JANUARY-type cages, no S1 screws noted. L4-5 Medtronic Sextant pedicle screw and richie construct and LEFT L4-5 TLIF graft. There is fusion across L4-S1. Ther e is collapse and bulging disc at L2-3, bulging disc at L3-4. L2-3 right severe foraminal stenosis, L3-4 bilateral moderate foraminal stenosis, L5-S1 BILATERAL severe foraminal stenosis. There is possible left LR stenosis at L3- 4. On exam: IPs Q G AT EHL R 5 5 5 5 5 L 5 5 5 4- 4- No evidence of groin abnormality Well healed multiple spine incisions He has a complex problem and we discussed that we are unlikely to benefit his back pain. However, his symptoms, images, and exam are consistent with LEFT L5- S1 foraminal stenosis. However, the LEFT L4 -L5 Medtronic Sextant instrumentation is preventing access to the foramen. As the spine is fused from L4-S1, we feel it is safe to remove the existing hardware on the LEFT without causing him any insta bility. Given the severity of the compression, we will need to dril down the mesial inferior L5 pedicle to provide access. As such, we recommend: REVISION LEFT L5-S1 far lateral transpedicular foraminotomy, removal of LEFT L4 -L5 posterior spine instrumentation. We discussed the risks and benefits of surgery. Risks include bleeding, infection, neurologic injury including weakness, numbness, paralysis, , spinal fluid leak, instability, and need for reopera tion or fusion. There is a risk of disk reherniation of 10% in the first year , and 4% every year thereafter. The patient expressed understanding of the risks and benefits of the procedure and wished t o proceed. All questions were answered. No guarantees were made to the outcome of the case. DESCRIPTION OF OPERATION: The patient was appropriately identified with all markers. The patient was brought back by anesthesia and received general endotracheal tube anesthesia with the neck held in neutral position. The jodi ent was then dosed with preoperative antibiotics. The patient was then turned prone onto a regular table with a Paxton frame at the flat setting. All bony prominences were padded. SCDs were placed on bilateral lower extremities. The lumbar spine was then prepped and draped in sterile fashion including alcohol, ChloraPrep and Betadine scrub and paint. Operative timeout was performed. The incision was planned for a REVISION LEFT L5-S1 far lateral transpedicular foraminotomy, removal of LEFT L4-L5 posterior spine instrumentation. Skin was injected with 0.5% Marcaine with epinephrine. A 10 blade and scalpel was then used to make a paramedian vertical longitudinal incision LEFT of midline spanning the L4 to S1 transverse processes through the prior incision. Bovie cautery was used to deepen the incision through subcutaneous tissue and fascia. A fascial incision was made, and blunt dissection was performed between the multifidous and longissimus muscles to the transverse processe s of L4 and S1 on the LEFT. A curet was then applied to the transverse processes and AP and lateral radiographs were taken to confirm vertebral level. The prior LEFT L4-L5 Medtronic Sextant instrumentation was identified and then removed. This included all set screws, rods, pedicle screws and other associated hardware with the appropriate instrumenta tion. Only the LEFT hardware was removed. All other ventral or RIGHT hardware was left in place. Dissection was continued to the LEFT L5-S1 foramen using the LEFT L5 pedicle screw hole as a landmark. The dense fusion mass between the LEFT L5-S1 facet was identified and debulked. Due to the narrow corridor, it was necessary to drill the inferior L5 transverse process, lateral L5 pars, lateral L5-S1 joint, and superior S1 transverse process to approach the foramen. Under the ligamentous band, th e exiting L5 nerve was identified as it draped over a calcified L5-S1 disc. This disc was drilled down and the entire foramen opened. The inferior mesial L5 pedicle was also drilled down to allow maxi mal space for the foramen. A hawkins ball probe was passed through the foramen and the nerve root was found to be not compressed. Closure was then commenced. The fascia was closed with 0 Vicryl in interrupted fashion. The dermis was closed with 2-0 Vicryl in interrupted fashion. Skin was approximated with Mastisol, Steri-Strips, followed by Telfa and Hypafix dressing. All needle and sponge counts were correct. There were no complications during the surgery. The patient was then carefully rolled supine onto a hospital bed. The patient was revived, extubated and taken to recovery room in stable condition, moving all 4 extremities postoperatively with good strength. Dr. Bijan Mancera was scrubbed and present for the enti re procedure. We discussed the completion of the case patient's family. They were very grateful for the care and information. All questions were answered.
--- OUTSIDE RECORDS SUMMARY | 2017-12-14 06:51 | XMS REPORT | Summary of Care ---
:1945 Author Organization [facility] Address [address], [address] [place] [address]- Encounter HQ [email or web address](FIN) [phone] Date(s): 03/25/17 - 03/25/17 [facility] [id number] [place] [address] [facility], [address] [place] [address] [phone] Discharge Disposition: Home or Self Care Attending Physician: Roxie Redd NP Vital Signs Most recent to oldest [Reference Range]: 1 Height 175.26 cm (03/25/17 8:32 AM) Temperature Oral [96.4-99.1 DegF] 99.1 DegF (03/25/17 8:32 AM) Blood Pressure [90-140/60-90 mmHg] 136/79 mmHg (03/25/17 8:32 AM) Peripheral Pulse Rate [60-100 bpm] 86 bpm (03/25/17 8:32 AM) Weight 65.199 kg (03/25/17 8:32 AM) Body Mass Index 21.23 m2 (03/25/17 8:32 AM) Problem List Condition Effective Dates Status Health Status Informant Diaz's palsy(Confirmed) Resolved BPH (benign prostatic Active hyperplasia)(Confirmed) Chronic pain(Confirmed) Active Gastric ulcer(Confirmed) Resolved HTN (hypertension)(Confirmed) Active Shingles(Confirmed) Resolved Allergies, Adverse Reactions, Alerts Substance Reaction Severity Status penicillins Active Medications No Known Medications Results No data available for this section Immunizations No data available for this section Procedures Procedure Date Related Diagnosis Body Site Appendectomy Carpal tunnel1 Cataracts2 Hip replacement History of back surgery History of knee surgery3 [id number] Social History Social History Type Response Alcohol Past, Type Beer. Frequency: Daily. Last use: 4 months ago. Smoking Status Current every day smoker; Type: Cigars; Exposure to Tobacco Smoke None; Cigarette Smoking Last 365 Days Yes; Reg Smoking Cessation Counseling No Assessment and Plan No data available for this section
[2017-12-14] MEDS ORDERED: Ringers Lactate 1,000 ML IV ONE (07:07)
[2017-12-14] MEDS ORDERED: GENTAMICIN 100 MG/100 ML BAG 100 MG/100 ML BAG IV ONE (07:08)
[2017-12-14] MEDS ORDERED: LIDOCAINE 1% MPF 5 ML VIAL ONE (07:27)
[2017-12-14] MEDS ORDERED: MIDAZOLAM HCL 2 MG/2 ML INJ ONE (07:27)
[2017-12-14] MEDS ORDERED: PROPOFOL 200 MG/20 ML VIAL IV ONE (07:27)
[2017-12-14] MEDS ORDERED: FENTANYL CITR 100 MCG/2 ML ONE ×2 (07:27→07:59)
[2017-12-14] MEDS ORDERED: ONDANSETRON HCL 40 MG/20 ML VIAL ONE (07:28)
== END 2017-12-14 10:20 | disposition home or self-care (01) ==
LOC: OR 06:20
PROVIDERS: ATTEND Urology
PROC: 0VB08ZZ Excision of Prostate, Via Natural or Artificial Opening Endoscopic (ICD-10-PCS; principal; 2017-12-14 07:30)
DX: N40.1 Benign prostatic hyperplasia with lower urinary tract symptoms (principal); R39.12 Poor urinary stream; I12.9 Hypertensive chronic kidney disease with stage 1 through stage 4 chronic kidney disease, or unspecified chronic kidney disease; N18.3 Chronic kidney disease, stage 3 (moderate); F17.210 Nicotine dependence, cigarettes, uncomplicated; Z88.0 Allergy status to penicillin; Z88.5 Allergy status to narcotic agent; I49.1 Atrial premature depolarization; I45.10 Unspecified right bundle-branch block; K21.9 Gastro-esophageal reflux disease without esophagitis
CPT/HCPCS: 36415; 52601; 71046; 80048; 85025; 85610; 85730; 87086; 87088; 88307; 93005; G0103; J1580; J2250; J2405; J3010 ×2; 81003; 81015

== ENCOUNTER 2019-10-17 08:06 | Day surgery (SDC) | payer OTHER ==
[2019-10-17 08:35] LABS: Absolute Lymphocytes (CBC) 2.8 K/uL (0.7-4.9); Hematocrit 39.1 % (39.6-49.0); Lymphocytes % 30.4 % (15.3-44.8); MPV 8.1 fL (7.6-11.3); RBC Red Blood Cell Count 3.91 M/uL (4.33-5.43)
[2019-10-17] MEDS ORDERED: Ringers Lactate 1,000 ML IV ONE ×2 (08:42→10:52)
[2019-10-17 08:53] LABS: Albumin 3.8 g/dL (3.4-5.0); Bilirubin Direct 0.2 mg/dL (0-0.2); Bilirubin Total 0.5 mg/dL (0.2-1.0); Potassium 4.3 mmol/L (3.5-5.1); Protein, Total 7.6 g/dL (6.4-8.2)
[2019-10-17] MEDS ORDERED: FENTANYL CITR 100 MCG/2 ML ONE (09:07)
[2019-10-17] MEDS ORDERED: dexAMETHasone 10 MG/ML VIAL ONE (09:07)
[2019-10-17] MEDS ORDERED: propofoL 200 MG/20 ML VIAL IV ONE (09:07)
[2019-10-17] MEDS ORDERED: MIDAZOLAM HCL 2 MG/2 ML INJ ONE (09:07)
[2019-10-17] MEDS ORDERED: KETOROLAC 30 MG/ML INJ ONE (09:08)
[2019-10-17] MEDS ORDERED: ROCURONIUM 50 MG/5 ML VIAL IV ONE (09:08)
[2019-10-17] MEDS ORDERED: LIDOCAINE 2% MPF 5 ML VIAL ONE (09:08)
[2019-10-17] MEDS ORDERED: ONDANSETRON 4 MG/2 ML VIAL ONE (09:08)
[2019-10-17] MEDS ORDERED: NS 0.9% VIAL 10 ML ONE (09:12)
--- NOTE | 2019-10-17 09:26 | RAD REPORT ---
EXAM DESCRIPTION: Miguel Childers (2 Views)10/17/2019 9:05 am CLINICAL HISTORY: Abdominal pain/preop for cholecystectomy COMPARISON: 2018 FINDINGS: Lungs are hyperaerated. The lungs appear clear of acute infiltrate. The heart is normal size IMPRESSION: Hyperaerated lungs without visualization of an acute abnormality
[2019-10-17] MEDS ORDERED: CIPROFLOXACIN 400mg IV 400 MG/200 ML BAG IV ONE (09:34)
[2019-10-17] MEDS ORDERED: BUPIVACAINE 0.5% PF 10 ML VIAL ONE (09:44)
[2019-10-17] MEDS ORDERED: Phenylephrine HCl 10 MG/ML 1 ML VIAL ONE (10:13)
[2019-10-17] MEDS ORDERED: GLYCOPYRROLATE 0.2 MG/ML SYR ONE (10:34)
[2019-10-17] MEDS ORDERED: NEOSTIGMINE 1 MG/ML -5 ML ONE (10:35)
[2019-10-17] MEDS: HYDROMORPHONE HCL 1 MG/ML INJ ONE ×4 (10:56→11:15)
[2019-10-17] MEDS ORDERED: PROMETHAZINE INJ 25 MG/ML AMP ONE (11:01)
--- OUTSIDE RECORDS SUMMARY | 2019-10-17 11:23 | XMS REPORT | Continuity of Care Document ---
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 Mische r (disorder) Neuro,[facility], H S[facility] Benign prostatic Active Problem 01/26/2019 Mi pool hyperplasia Neuro, (disorder) [facility] , H S[facility] Chronic pain Active Problem 01/26/2019 Mische r (finding) Neuro,[facility], H S[facility] Gastric ulcer Resolved Problem 01/26/2019 Misch er (disorder) Neuro,[facility], H S[facility] Hypertensive Active Problem 01/26/2019 Mische r disorder, Neuro, systemic [facility], M arterial H SMR Katya n (disorder) [facility] Herpes zoster Resolved Problem 01/26/2019 Misch er (disorder) Neuro,[facility], H S[facility] RADICULOPATHY, Active CERVICAL REGION [place] 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 [place] RADICULOPA RADICULOPATHY, Active LUMBAR REGION [place] Medications Medication Details Route Status Patient Ordering Order Source Instructions Provider Date gabapentin 300 MG 300 mg = 1 cap, Active 12/08/ [facility] Oral Capsule PO, BID, # 90 2019 Neuro cap, 0 Refill(s), Pharmacy: [facility] [id number] Senokot 2 tab, Route: Inactive PO, Dosing 2018 [facility] Weight 60.455, kg, Daily, Start date: 11/24/18 9:00:00 CDT, Duration: 30 day, Stop date: 12/23/18 9:00:00 CDT heparin sodium, 5,000 unit, Inactive porcine 2500 Route: SUB-Q, 2019 [facility] UNT/ML Injectable Drug form: INJ, Solution Q12H, Dosing Weight 60.455, kg, Start date: 11/24/18 8:00:00 CDT, Duration: 30 day, Stop date: 12/23/18 21:00:00 CDT Cefazolin 1 gm, Route: Inactive IVPB, Drug 2018 [facility] form: INJ, Q8H, Dosing Weight 60.455, kg, Start date: 11/24/18 0:00:00 CDT, Duration: 3 doses or times, Stop date: 11/24/18 16:00:00 CDT, ABX Indication: Surgical Prophylaxis Famotidine 20 MG 20 mg, 1 tab, No Longer Oral Tablet Route: PO, Drug Active 2019 [place] [Pepcid] form: TAB, Q12H, Dosing Weight 60.455, kg, Start date: 11/23/18 21:00:00 CDT, Duration: 30 day, Stop date: 12/23/18 9:00:00 CDT Docusate Sodium 100 mg, 1 cap, No Longer 100 MG Oral Route: PO, BID, Active 2019 [place] Capsule [Colace] Dosing Weight 60.455, kg, Start date: 11/23/18 17:00:00 CDT, Duration: 30 day, Stop date: 12/23/18 9:00:00 CDT Ondansetron 4 mg, Route: No Longer IVP, ONCE, 2018 [facility] Dosing Weight 60.455, kg, PRN Nausea & Vomiting, Start date: 11/23/18 16:37:00 CDT Flumazenil 0.2 mg, Route: No Longer IVP, PRN, Active 2018 [facility] Dosing Weight 60.455, kg, PRN Benzodiazepine Reversal, Initial dose, Start date: 11/23/18 16:37:00 CDT, Duration: 30 day, Stop date: 12/23/18 16:36:00 CDT Naloxone 0.4 mg, Route: No Longer IVP, Q2MIN, Active 2018 [facility] Dosing Weight 60.455, kg, PRN Narcotic Reversal, Start date: 11/23/18 16:37:00 CDT, Duration: 8 doses or times, Stop date: Limited # of times Oxycodone 10 mg, Route: No Longer Hydrochloride 5 PO, Drug form: Active 2018 [place] [facility] Oral Tablet TAB, Q4H, Dosing Weight 60.455, kg, PRN Pain Score 7-10, Start date: 11/23/18 16:37:00 CDT, Duration: 30 day, Stop date: 12/23/18 16:36:00 CDT Fentanyl 25 microgram, No Longer Route: IVP, Active 2018 [facility] Q5Min, Dosing Weight 60.455, kg, PRN Pain Score 4-6, Priority: Routine, Start date: 11/23/18 16:37:00 CDT, Duration: 4 doses or times, Stop date: Limited # of times Acetaminophen 325 1 tab, PO, Q4H, Active MG / Hydrocodone PRN Pain, # 60 2018 [facility] Bitartrate 5 MG tab, 0 Oral Tablet Refill(s), given to patient magnesium citrate 300 ml, Route: No Longer 11/23 PO, Drug Form: Active 2019 [facility] LIQ, Dosing Weight 60.455, kg, ONCE, PRN Constipation, Start date: 11/23/18 16:17:00 CDT Dilaudid 1 mg, Route: No Longer IV, Q3H, Dosing Active 2019 [place] [facility] Weight 60.455, kg, PRN Pain, Start date: 11/23/18 16:17:00 CDT, Duration: 30 day, Stop date: 12/23/18 16:16:00 CDT Zofran 4 mg, Route: No Longer IV, Drug form: Active 2019 [place] INJ, Q8H, Dosing Weight 60.455, kg, PRN Nausea, Start date: 11/23/18 16:17:00 CDT, Duration: 30 day, Stop date: 12/23/18 16:16:00 CDT Acetaminophen 325 1 tab, Route: No Longer MG / Hydrocodone PO, Drug Form: Active 2019 [place] Bitartrate 5 MG TAB, Dosing Oral Tablet Weight 60.455, kg, Q4H, PRN Pain, Start date: 11/23/18 16:17:00 CDT, Duration: 30 day, Stop date: 12/23/18 16:16:00 CDT Tylenol 650 mg, Route: No Longer PO, Drug form: Active 2019 [place] TAB, Q4H, Dosing Weight 60.455, kg, PRN Pain, Start date: 11/23/18 16:17:00 CDT, Duration: 30 day, Stop date: 12/23/18 16:16:00 CDT Sodium Chloride 1,000 mL, Rate: No Longer 0.9% IV 1000 mL 75 ml/hr, Active 2019 [place] [facility] Infuse over: 13.3 hr, Route: IV, Dosing Weight 60.455 kg, Total Volume: 1,000, Start date: 11/23/18 16:17:00 CDT, Duration: 30 day, Stop date: 12/23/18 16:16:00 CDT, 1.72, m2 phenylephrine Route: IV, Drug Inactive 11/23/ M H (ANES) form: INJ, 2018 ONCE, Stop date: 11/23/18 14:57:00 CDT ketAMINE (ANES) Route: IV, Drug Inactive form: INJ, 2018 ONCE, Stop date: 11/23/18 14:27:00 CDT dexamethasone Route: IV, Drug Inactive 11/23/ M H (ANES) form: INJ, 2018 ONCE, Stop date: 11/23/18 13:41:00 CDT propofol (ANES) Route: IV, Drug Inactive form: INJ, 2018 ONCE, Stop date: 11/23/18 13:36:00 CDT lidocaine (ANES) Route: IV, Drug Inactive form: [id number], Stop date: 11/23/18 13:36:00 CDT rocuronium (ANES) Route: IV, Drug Inactive 11/23 form: INJ, 2018 ONCE, Stop date: 11/23/18 13:36:00 CDT fentaNYL (ANES) Route: IV, Drug Inactive form: INJ, 2018 ONCE, Stop date: 11/23/18 13:36:00 CDT ondansetron Route: IV, Drug Inactive (ANES) form: INJ, 2018, Stop date: 11/23/18 13:36:00 CDT midazolam (ANES) Route: IV, Drug Inactive form: SOLN, 2018, Stop date: 11/23/18 13:36:00 CDT Hextend (ANES) Route: IV, Drug Inactive 500 mL Form: [id number] [facility] Start date: 11/23/18 13:28:00 CDT, Stop date: 11/23/18 14:28:00 CDT ceFAZolin (ANES) Route: IV, Drug Inactive 1000 mg form: [id number] [facility] Start date: 11/23/18 13:00:00 CDT, Stop date: 11/23/18 14:00:00 CDT Lactated Ringers Route: IV, Inactive Injection IV Total Volume: 2019 [place] (ANES) 1000 mL 1,000, Start date: 11/23/18 12:28:00 CDT, Stop date: 11/23/18 13:28:00 CDT Calcium Chloride 1,000 mL, Rate: Inactive 0.0014 MEQ/ML / 75 ml/hr, 2019 [place] Potassium Infuse over: Chloride 0.004 13.3 hr, Route: MEQ/ML / Sodium IV, Dosing Chloride 0.103 Weight 60.455 MEQ/ML / Sodium kg, Total Lactate 0.028 Volume: 1,000, MEQ/ML Injectable Start date: Solution 11/23/18 10:46:00 CDT, Duration: 30 day, Stop date: 12/23/18 10:45:00 CDT, 1.72, m2 losartan 25 mg 25 mg = 1 tab, Active oral tablet PO, Daily, # 30 2019 [place] tab, 0 Refill(s) rOPINIRole 0.5 mg 0.5 mg = 1 tab, Active 10/07/ [facility]ischer oral tablet PO, TID, 0 2018 [facility] Refill(s) tizanidine 4 mg 8 mg = 2 cap, Active [place] oral capsule PO, TID, 0 2018 [facility] Refill(s) cyproheptadine 4 4 mg = 1 tab, Active M ischer mg oral tablet PO, TID, 0 2018 [facility] Refill(s) gabapentin 300 MG 300 mg = 1 cap, Active 10/07/ [facility] Oral Capsule PO, TID, 0 2018 [facility] Refill(s) Senokot 2 tab, Route: No Longer PO, Dosing Active 2016 [facility] Weight 66.364, kg, Daily, Start date: 03/11/17 9:00:00 WEIGHT CALCULATOR, Duration: 30 day, Stop date: 04/09/17 9:00:00 WEIGHT CALCULATOR heparin sodium, 5,000 unit, No Longer porcine 2500 Route: SUB-Q, Active 2016 [facility] UNT/ML Injectable Drug form: INJ, Solution Q12H, Dosing Weight 66.364, kg, Start date: 03/11/17 8:00:00 WEIGHT CALCULATOR, Duration: 30 day, Stop date: 04/09/17 21:00:00 WEIGHT CALCULATOR Famotidine 20 MG 20 mg, 1 tab, Inactive Oral Tablet Route: PO, Drug 2016 [place] [Pepcid] form: TAB, Q12H, Dosing Weight 66.364, kg, Start date: 03/10/17 21:00:00 WEIGHT CALCULATOR, Duration: 30 day, Stop date: 04/09/17 9:00:00 WEIGHT CALCULATOR Vancomycin 1 gm, Route: Inactive IVPB, Drug 2016 [facility] form: INJ, Q12H, Dosing Weight 66.364, kg, Start date: 03/10/17 21:00:00 WEIGHT CALCULATOR, Duration: 4 doses or times, Stop date: 03/12/17 9:00:00 WEIGHT CALCULATOR, ABX Indication: Surgical Prophylaxis Docusate Sodium 100 mg, 1 cap, Inactive 100 MG Oral Route: PO, BID, 2017 [place] Capsule [Colace] Dosing Weight 66.364, kg, Start date: 03/10/17 17:00:00 WEIGHT CALCULATOR, Duration: 30 day, Stop date: 04/09/17 9:00:00 WEIGHT CALCULATOR Meperidine 12.5 mg, Route: Inactive IVP, Q30Min, 2016 [facility] Dosing Weight 66.364, kg, PRN Other -See Comment, For shivering, Start date: 03/10/17 13:51:00 WEIGHT CALCULATOR, Duration: 2 doses or times, Stop date: Limited # of times Ondansetron 4 mg, Route: Inactive IVP, ONCE, 2016 [facility] Dosing Weight 66.364, kg, PRN Nausea & Vomiting, Start date: 03/10/17 13:51:00 WEIGHT CALCULATOR Diphenhydramine 12.5 mg, Route: Inactive IVP, Drug form: 2017 [place] INJ, Q6H, Dosing Weight 66.364, kg, PRN Itching, Start date: 03/10/17 13:51:00 WEIGHT CALCULATOR, Duration: 30 day, Stop date: 04/09/17 13:50:00 WEIGHT CALCULATOR Albuterol 0.83 2.49 mg, Route: Inactive MG/ML Inhalant NEB, Q20Min, 2016 [place] Solution Dosing Weight 66.364, kg, PRN Wheezing, Priority: STAT, Start date: 03/10/17 13:51:00 WEIGHT CALCULATOR, Duration: 30 day, Stop date: 04/09/17 13:50:00 WEIGHT CALCULATOR Flumazenil 0.2 mg, Route: Inactive IVP, PRN, 2016 [facility] Dosing Weight 66.364, kg, PRN Benzodiazepine Reversal, Initial dose, Start date: 03/10/17 13:51:00 WEIGHT CALCULATOR, Duration: 30 day, Stop date: 04/09/17 13:50:00 WEIGHT CALCULATOR Naloxone 0.4 mg, Route: Inactive IVP, Q2MIN, 2016 [facility] Dosing Weight 66.364, kg, PRN Narcotic Reversal, Start date: 03/10/17 13:51:00 WEIGHT CALCULATOR, Duration: 8 doses or times, Stop date: Limited # of times Hydralazine 10 mg, Route: Inactive IVP, Q20Min, 2016 [facility] Dosing Weight 66.364, kg, PRN Elevated BP, Start date: 03/10/17 13:51:00 WEIGHT CALCULATOR, Duration: 2 doses or times, Stop date: Limited # of times Acetaminophen 1,000 mg, Inactive Route: PO, Drug 2016 [facility] t form: TAB, ONCE, Dosing Weight 66.364, kg, PRN Pain Score 1-3, Start date: 03/10/17 13:51:00 WEIGHT CALCULATOR esmolol 10 mg, Route: Inactive IVP, Q5Min, 2016 [facility] Dosing Weight 66.364, kg, PRN Other -See Comment, Start date: 03/10/17 13:51:00 WEIGHT CALCULATOR, Duration: 5 doses or times, Stop date: Limited # of times Labetalol 10 mg, Route: Inactive IVP, Q5Min, 2016 [facility] Dosing Weight 66.364, kg, PRN Elevated BP, Start date: 03/10/17 13:51:00 WEIGHT CALCULATOR, Duration: 5 doses or times, Stop date: Limited # of times Oxycodone 10 mg, Route: Inactive PO, Drug form: 2016 [facility] TAB, Q4H, Dosing Weight 66.364, kg, PRN Pain Score 7-10, Start date: 03/10/17 13:51:00 WEIGHT CALCULATOR, Duration: 30 day, Stop date: 04/09/17 13:50:00 WEIGHT CALCULATOR Fentanyl 25 microgram, Inactive Route: IVP, 2016 [facility] Q5Min, Dosing Weight 66.364, kg, PRN Pain Score 4-6, Priority: Routine, Start date: 03/10/17 13:51:00 WEIGHT CALCULATOR, Duration: 4 doses or times, Stop date: Limited # of times Hydromorphone 0.5 mg, Route: Inactive IVP, Q5Min, 2016 [facility] Dosing Weight 66.364, kg, PRN Pain Score 7-10, Start date: 03/10/17 13:51:00 WEIGHT CALCULATOR, Duration: 4 doses or times, Stop date: Limited # of times Acetaminophen 325 1 tab, PO, Q4H, Active MG / Hydrocodone PRN Pain, 0 2016 [place] Bitartrate 5 MG Refill(s) Oral Tablet magnesium citrate 300 ml, Route: Inactive PO, Drug Form: 2016 [facility] LIQ, Dosing Weight 66.364, kg, ONCE, PRN Constipation, Start date: 03/10/17 13:19:00 WEIGHT CALCULATOR Acetaminophen 325 1 tab, Route: Inactive MG / Hydrocodone PO, Drug Form: 2016 [place] Bitartrate 5 MG TAB, Dosing Oral Tablet Weight 66.364, kg, Q4H, PRN Pain, Start date: 03/10/17 13:19:00 WEIGHT CALCULATOR, Duration: 30 day, Stop date: 04/09/17 13:18:00 WEIGHT CALCULATOR Dilaudid 1 mg, Route: Inactive IV, Q3H, Dosing 2016 [facility] Weight 66.364, kg, PRN Pain, Start date: 03/10/17 13:19:00 WEIGHT CALCULATOR, Duration: 30 day, Stop date: 04/09/17 13:18:00 WEIGHT CALCULATOR Tylenol 650 mg, Route: Inactive PO, Drug form: 2016 [place] TAB, Q4H, Dosing Weight 66.364, kg, PRN Pain, Start date: 03/10/17 13:19:00 WEIGHT CALCULATOR, Duration: 30 day, Stop date: 04/09/17 13:18:00 WEIGHT CALCULATOR Zofran 4 mg, Route: Inactive IV, Drug form: 2016 [place] INJ, Q8H, Dosing Weight 66.364, kg, PRN Nausea, Start date: 03/10/17 13:19:00 WEIGHT CALCULATOR, Duration: 30 day, Stop date: 04/09/17 13:18:00 WEIGHT CALCULATOR Sodium Chloride 1,000 mL, Rate: Inactive 0.9% IV 1000 mL 75 ml/hr, 2016 [place] [facility] Infuse over: 13.3 hr, Route: IV, Dosing Weight 66.364 kg, Total Volume: 1,000, Start date: 03/10/17 13:19:00 WEIGHT CALCULATOR, Duration: 30 day, Stop date: 04/09/17 13:18:00 WEIGHT CALCULATOR, 1.8, m2 metoclopramide Route: IV, Drug Inactive (ANES) form: INJ, 2016 [place] ONCE, Stop date: 03/10/17 13:09:00 WEIGHT CALCULATOR acetaminophen Route: IV, Drug Inactive H (ANES) 10 mg form: INJ, 2016 Seth t Start date: 03/10/17 11:46:00 WEIGHT CALCULATOR, Stop date: 03/10/17 12:46:00 WEIGHT CALCULATOR dexamethasone Route: IV, Drug Inactive 03/10/ M H (ANES) form: INJ, 2016, Stop date: 03/10/17 11:29:00 WEIGHT CALCULATOR lidocaine (ANES) Route: IV, Drug Inactive form: INJ, 2016, Stop date: 03/10/17 11:19:00 WEIGHT CALCULATOR fentaNYL (ANES) Route: IV, Drug Inactive form: INJ, 2016, Stop date: 03/10/17 11:19:00 WEIGHT CALCULATOR midazolam (ANES) Route: IV, Drug Inactive form: SOLN, 2016, Stop date: 03/10/17 11:19:00 WEIGHT CALCULATOR ondansetron Route: IV, Drug Inactive MH (ANES) form: INJ, 2016, Stop date: 03/10/17 11:19:00 WEIGHT CALCULATOR propofol (ANES) Route: IV, Drug Inactive form: INJ, 2016, Stop date: 03/10/17 11:19:00 WEIGHT CALCULATOR rocuronium (ANES) Route: IV, Drug Inactive 03/10 form: INJ, 2016, Stop date: 03/10/17 11:19:00 WEIGHT CALCULATOR ketAMINE (ANES) Route: IV, Drug Inactive form: [id number], Stop date: 03/10/17 11:19:00 WEIGHT CALCULATOR phenylephrine Route: IV, Drug Inactive H (ANES) form: INJ, 2016, Stop date: 03/10/17 11:14:00 WEIGHT CALCULATOR vancomycin (ANES) Route: IV, Drug Inactive 03/10 1000 mg form: INJ, 2016 Start date: 03/10/17 10:29:00 WEIGHT CALCULATOR, Stop date: 03/10/17 11:29:00 WEIGHT CALCULATOR Lactated Ringers Route: IV, Inactive Injection IV Total Volume: 2016 [facility] (ANES) 1000 mL 1,000, Start date: 03/10/17 10:12:00 WEIGHT CALCULATOR, Stop date: 03/10/17 11:12:00 WEIGHT CALCULATOR Calcium Chloride 1,000 mL, Rate: Inactive 0.0014 MEQ/ML / 25 ml/hr, 2016 [facility] ast Potassium Infuse over: 40 Chloride 0.004 hr, Route: IV, MEQ/ML / Sodium Dosing Weight Chloride 0.103 66.364 kg, MEQ/ML / Sodium Total Volume: Lactate 0.028 1,000, Start MEQ/ML Injectable date: 03/10/17 Solution 8:52:00 WEIGHT CALCULATOR, Duration: 30 day, Stop date: 04/09/17 8:51:00 WEIGHT CALCULATOR, 1.8, m2 Fentanyl 25 microgram, Active TOP, 0 2016 [facility] Refill(s) Acetaminophen 325 1 tab, PO, Q6H, Active MG / Hydrocodone 0 Refill(s) 2016 [place] Bitartrate 10 MG Oral Tablet losartan 100 mg 100 mg = 1 tab, Active oral tablet PO, Daily, 0 2016 [facility] Refill(s) NIFEdipine 30 mg 30 mg = 1 tab, Active oral tablet, PO, Daily, as 2016 [facility] extended release needed during winter season, 0 Refill(s) tamsulosin 0.4 mg 0.4 mg = 1 cap, Active oral capsule PO, Daily, as 2016 [facility] needed pantoprazole 40 40 mg = 1 tab, Active H mg oral enteric PO, Daily, 0 2016 [place] [facility] coated tablet Refill(s) Allergies, Adverse Reactions, Alerts Substance Category Reaction Severity Reaction Status Date Comments S ource type Reported penicillins Assertion Drug Active SMR allergy [facility] morphine Assertion Drug Active SM R allergy [facility] Immunizations No Data Provided for This Section Results Order Name Results Value Reference Date Interpretation Comments [facility] [place] BLOOD BANK Antibody Negative 11/16 RESULTS Scrn (11/16/18 1:28 PM) /2018 [facility] ast BLOOD BANK ABO/Rh B POS 11/16 RESULTS /2019 [facility] CHEM PANEL eGFR 35 11/16 Result Comment: The [facility] eGFR is calculated using the CKD-EPI formula. In most young, healthy individuals the eGFR will be >90 mL/min/1.73m2 . The eGFR declines with age. An eGFR of 60-89 may be normal in some populations, particularly the elderly, for whom the CKD-EPI formula has not been extensively validated. Use of the eGFR is not recommended in the following populations:< br/>
Estrella viduals with unstable creatinine concentration s, including patients and those with serious co-morbid conditions.<b r/>
Patie nts with extremes in muscle mass or diet.

The data above are obtained from the National Kidney Disease Education Program (NKDEP) which additionally recommends that when the eGFR is used in patients with extremes of body mass index for purposes of drug dosing, the eGFR should be multiplied by the estimated BMI. CHEM PANEL Potassium 4.0 3.5 - 5.1 11/16 [facility] Lvl /2018 [facility] CHEM PANEL Chloride Lvl 108 95 - 109 11/16 [facility] CHEM PANEL Sodium Lvl 139 135 - 145 11/16 [facility] CHEM PANEL Calcium Lvl 9.1 8.5 - 10.5 11/16 [facility] CHEM PANEL CO2 25 24 - 32 11/16 [facility] CHEM PANEL Total 7.6 6.4 - 8.4 11/16 [facility] CHEM PANEL ALT 26 0 - 65 11/16 [facility] CHEM PANEL Albumin Lvl 3.7 3.5 - 5.0 11/16 [facility] CHEM PANEL Alk Phos 107 39 - 136 11/16 [facility] CHEM PANEL AST 15 0 - 37 11/16 [facility] CHEM PANEL Bili Total 0.5 0.2 - 1.3 11/16 [facility] CHEM PANEL Glucose Lvl 86 70 - 99 11/16 [facility] CHEM PANEL Creatinine 1.88 0.50 - 11/16 Lvl 1.40 /2018 [facility] CHEM PANEL BUN 29 7 - 22 11/16 [facility] CHEM PANEL AGAP 10.0 10.0 - 11/16 MH 20.0 [facility] CHEM PANEL Globulin 3.9 2.7 - 4.2 11/16 [facility] CHEM PANEL B/C Ratio 15 6 - 25 11/16 [facility] CHEM PANEL A/G Ratio 0.9 0.7 - 1.6 11/16 [facility] HEMATOLOGY PT 12.4 12.0 - 11/16 MH 14.7 /2018 [facility] HEMATOLOGY PTT 32.5 22.9 - 11/16 MH 35.8 /2018 [facility] HEMATOLOGY INR 0.94 0.85 - 11/16 MH 1.17 [facility] HEMATOLOGY Eosinophils 0.1 0.0 - 0.5 11/16 MH # /2018 [facility] HEMATOLOGY Monocytes # 0.8 0.0 - 0.8 11/16 [facility] HEMATOLOGY Basophils # 0.1 0.0 - 0.2 11/16 [facility] HEMATOLOGY Macrocyte 1+ None Seen 11/16 *ABN* /2018 [facility] (11/16/18 1:28 PM) HEMATOLOGY Lymphocytes 2.9 1.0 - 5.5 11/16 MH # /2018 [facility] HEMATOLOGY Basophils 0.7 0.0 - 1.0 11/16 /2018 [facility] HEMATOLOGY Eosinophils 1.4 0.0 - 4.0 11/16 [facility] HEMATOLOGY Segs 63.8 45.0 - 11/16 75.0 [facility] HEMATOLOGY Neutrophils 6.9 1.5 - 8.1 11/16 MH # /2018 [facility] HEMATOLOGY Monocytes 7.1 2.0 - 12.0 11/16 /2018 [facility] HEMATOLOGY Lymphocytes 27.0 20.0 - 11/16 MH 40.0 [facility] HEMATOLOGY RDW 12.8 11.5 - 11/16 MH 14.5 [facility] HEMATOLOGY Platelet 238 133 - 450 11/16 /2018 [facility] HEMATOLOGY MPV 7.3 7.4 - 10.4 11/16 /2018 [facility] HEMATOLOGY Hgb 11.6 14.0 - 11/16 MH 18.0 [facility] HEMATOLOGY MCHC 35.4 32.0 - 11/16 MH 36.0 [facility] HEMATOLOGY MCH 35.8 27.0 - 11/16 31.0 [facility] HEMATOLOGY RBC 3.25 4.70 - 11/16 MH 6.10 [facility] HEMATOLOGY MCV 101.1 80.0 - 11/16 94.0 [facility] HEMATOLOGY Hct 32.9 42.0 - 11/16 MH 54.0 [facility] HEMATOLOGY WBC 10.8 3.7 - 10.4 11/16 [facility] BLOOD BANK Antibody Negative 03/03 RESULTS Scrn (03/03/17 9:27 AM) /2016 [facility] BLOOD BANK ABO/Rh B POS 03/03 RESULTS /2016 [facility] CHEM PANEL B/C Ratio 12 6 - 25 03/03 /2016 [facility] CHEM PANEL AGAP 11.0 10.0 - 03/03 20.0 [facility] CHEM PANEL Globulin 4.2 2.7 - 4.2 03/03 [facility] CHEM PANEL A/G Ratio 0.9 0.7 - 1.6 03/03 [facility] CHEM PANEL eGFR 54 03/03 [facility] Comment: The [facility] eGFR is calculated using the CKD-EPI formula. In most young, healthy individuals the eGFR will be >90 mL/min/1.73m2 . The eGFR declines with age. An eGFR of 60-89 may be normal in some populations, particularly the elderly, for whom the CKD-EPI formula has not been extensively validated. Use of the eGFR is not recommended in the following populations:< br/>
Estrella viduals with unstable creatinine concentration s, including patients and those with serious co-morbid conditions.<b r/>
Patie nts with extremes in muscle mass or diet.

The data above are obtained from the National Kidney Disease Education Program (NKDEP) which additionally recommends that when the eGFR is used in patients with extremes of body mass index for purposes of drug dosing, the eGFR should be multiplied by the estimated BMI. CHEM PANEL Bili Total 0.6 0.2 - 1.3 03/03 [facility] CHEM PANEL Calcium Lvl 9.2 8.5 - 10.5 03/03 [facility] CHEM PANEL CO2 27 24 - 32 03/03 [facility] CHEM PANEL Alk Phos 96 39 - 136 03/03 [facility] CHEM PANEL Albumin Lvl 3.8 3.5 - 5.0 03/03 [facility] CHEM PANEL Total 8.0 6.4 - 8.4 03/03 [facility] CHEM PANEL Glucose Lvl 96 70 - 99 03/03 [facility] CHEM PANEL ALT 9 0 - 65 03/03 [facility] CHEM PANEL AST 8 0 - 37 03/03 [facility] CHEM PANEL BUN 16 7 - 22 03/03 [facility] CHEM PANEL Sodium Lvl 140 135 - 145 03/03 [facility] CHEM PANEL Creatinine 1.34 0.50 - 03/03 Lvl 1.40 /2016 [facility] CHEM PANEL Chloride Lvl 106 95 - 109 03/03 [facility] CHEM PANEL Potassium 4.0 3.5 - 5.1 03/03 Lvl [facility] HEMATOLOGY Basophils # 0.1 0.0 - 0.2 03/03 /2016 [facility] HEMATOLOGY Monocytes # 0.7 0.0 - 0.8 03/03 [facility] HEMATOLOGY Lymphocytes 2.7 1.0 - 5.5 03/03 MH # /2017 [facility] HEMATOLOGY Basophils 0.7 0.0 - 1.0 03/03 [facility] HEMATOLOGY Eosinophils 0.5 0.0 - 4.0 03/03 [facility] HEMATOLOGY Monocytes 6.9 2.0 - 12.0 03/03 [facility] HEMATOLOGY Lymphocytes 28.5 20.0 - 03/03 MH 40.0 /2016 [facility] HEMATOLOGY Segs-Bands # 6.0 1.5 - 8.1 03/03 [facility] HEMATOLOGY Segs 63.4 45.0 - 03/03 75.0 /2016 [facility] HEMATOLOGY INR 0.94 0.85 - 03/03 MH 1.17 /2016 [facility] HEMATOLOGY PT 12.6 12.0 - 03/03 14.7 [facility] HEMATOLOGY PTT 31.8 22.9 - 03/03 35.8 /2016 [facility] HEMATOLOGY MPV 8.0 7.4 - 10.4 03/03 [facility] HEMATOLOGY Platelet 271 133 - 450 03/03 [facility] HEMATOLOGY RDW 12.9 11.5 - 03/03 14.5 [facility] HEMATOLOGY MCHC 33.4 32.0 - 03/03 36.0 /2016 [facility] HEMATOLOGY MCH 33.0 27.0 - 03/03 31.0 /2016 [facility] HEMATOLOGY MCV 98.8 80.0 - 03/03 94.0 /2016 [facility] HEMATOLOGY Hct 36.1 42.0 - 03/03 54.0 /2017 [facility] HEMATOLOGY Hgb 12.1 14.0 - 03/03 18.0 /2016 [facility] HEMATOLOGY WBC 9.5 3.7 - 10.4 03/03 [facility] HEMATOLOGY RBC 3.66 4.70 - 03/03 6.10 [facility] Pathology Reports No Data Provided for This Section Diagnostic Reports Report Value Date Source Chest 2 views DX Clinical Indication: Coughing - preop exam 10/19 [facility] Comparison: None FINDINGS: The PA and lateral chest rad iographs shows hyperinflated lung volumes without interstitial or airspace opacities, pleural effusions or pneumothorax. There is widening of the AP diameter and flattening of the diaphragms. The heart size and pulmonary vasculature are normal. The trachea is midline. There are no clinically significant osseous abnormalities noted. IMPRESSION: 1. Findings consistent with chronic obstructive pulmonary disease. 2. No focal infiltrates. SL: [id number] Spine cervical wo Clinical Indication: -Pre-op evaluation 11/[address] [facility] contrast CT Comparison: None Technique: Multi-detector CT imaging of the cervical spine is performed. Coronal and sagittal reconstructions were obtained. CT Radiation Dose DLP 472 mGy-cm FINDINGS: ALIGNMENT AND GENERAL ASSESS MENT: There is no fracture. The occipital condyle/C1 and C1/C2 facet articulations are maintained. The prevertebral soft tissues are normal. The partially visualized posterio r fossa is normal. There is no compromise the airway. There is minimal calcification of the carotid bifurcation. Within the right upper lobe, there is a soft tissue mass density of 2.5 cm elliptical in shape spiculated in appearance with a punctate 3 mm calcification. The possibility of primary neoplasia is not ex cluded to be correlated with PET imaging. There is significant bullous emphysematous changes of the right upper lobe. DISK SPACES AND SOFT TISSUES: At the C2-C3 disc space, the re is a 1 to 2 mm anterolisthesis and degenerative changes of facet joints with minimal bilateral foraminal stenosis. At the C3-C4 disc space, the re is significant hypertrophic degenerative change of facet joints, hypertrophic change uncovertebral joints with moderate left greater than right foraminal stenosis. There i s a 1 to 2 mm anterolisthesis and minimal centra l canal stenosis. At the C4-C5 disc space, the re is hypertrophic degenerative change of the right facet joint hypertrophic change uncovertebral joint and ligamentum flavum with a 2 mm anterolisthesis. There is minimal sp inal stenosis and moderate t o severe right and minimal to moderate left foraminal stenosis. There is anterior spondylosis. At the C5-C6 the disc space which is desiccated and narrowed, there is a 1 mm anterolisthesis, 2 mm bulge of the annulus and hypertrophic change to the uncovertebral joints and hypertrophic degenerative change of the left facet manuel int. There is moderate left and minimal to moderate right foraminal stenosis. Anterior spondylosis is present. At the C6-C7 disc space whic h is desiccated and narrowed, there is a 3 mm broad-based bridging osteophyte with moderate spinal stenosis and hypertrophic change uncovertebral joints with severe right gre ater than left foraminal stenosis. There is ante rior spondylosis. At the C7-T1 disc space ther e is no central or foraminal stenosis is minimal degenerative change of the right facet joint. MRI is the gold standard to assess for disk dise ase. VISUALIZED LUNG APICES: Unremarkable. CT myelogram or MRI of the c ervical spine may be performed, if there is further concern. IMPRESSION: Multilevel discogenic disease is present as desc ribed. Within the right upper lobe, apical segment there is a 2.5 cm nodular mass density as described. SL: ROD-NELSON Spine lumbar wo Patient Name: HILARIA TREVINO 10/21/2016 [facility] contrast CT : 1945; Age: 71 years y/o Male MR: [id number] Study: Spine lumbar wo contrast CT 10/21/2016 [...] the mid left kidney. Minimal lumbar curvature con vex to the left. Straightening of usual lumbar lordosis. Lumbar vertebral body heights are maintained. There is no acute fracture, dislocation or spondylolisthesis. Narrowing of the disc space at L2-L3 associated with vacuum phenomena within the disc space, discogenic sclerosis of the opposing endplates and irregularity/tiny Schmorl's nodes at the inferior endplate of L2 are consistent with d egenerative disc disease. Disc spacer is present at L4-L5. Cages are present at L5-S1. Bilateral decompressive laminectomy at L5- S1. Unilateral laminectomy on the right at L4 -L5. Pedicular screw and richie fixation is noted [...] is noted. At L1-L2 there is mild broad -based disc bulge present associated with ligamentous thickening and degenerative arthropathy of the apophyseal joints at this level resulting in moderate to moderately sever e central spinal stenosis. N o acute disc herniation or neural foraminal stenosis is noted. At L2-L3 there is moderate b road-based disc bulge present associated with ligamentous thickening and degenerative arthropathy of the apophyseal joints at this level resulting in moderate to moderately s evere central spinal stenosi s. Degenerative disc disease is noted at this level. No acute disc herniation. There is encroachment upon the neural foramen bilaterally without neural foraminal stenosis. At L3-L4 detail at this leve l is somewhat limited by metallic spray artifact; however, there is moderate broad-based disc bulge present associated with ligamentous thickening and degenerative arthropath y of the apophyseal joints a t this level resulting in moderately severe central spinal stenosis. No acute disc herniation. There is encroachment upon the neural foramen bilaterally without neural foraminal stenosis. At L4-L5 postoperative cano es at this level have been described above. Detail is limited by metallic spray artifact. A 6.4 x 13.3 mm central disc protrusion is noted at this level. There is bony encroa chment upon the neural lita en on the right without neural foraminal stenosis. Left neural foramen is well-maintained. There is no central spinal stenosis. There is demineralization and fragmentation no hermelinda at the left L4-L5 facet joint and left lamina at this level. Unilateral laminectomy defect on the right at this level. At L5-S1, postoperative oneal ges at this level have been described above. [...] levels. 2. At L5-S1, there is bony e ncroachment upon the neural foramen bilaterally resulting in segmental areas of neural foraminal stenosis. At L4-L5, there is bony encroachment upon the right neural foramen without neural foraminal shalom nosis. At L2-L3 and L3-L4, there is bony encroachment upon the neural foramen bilaterally without neural foraminal stenosis. 3. Moderately severe degenerative disc disease a t L2-L3. 4. Lumbar spondylosis as det emilio per level above. At L3-L4, there is moderately severe central spinal stenosis related to lumbar spondylosis. At L1- L2 and L2-L3, there is moderate to moderately severe central spinal stenosis related to lumbar spondy losis. 5. Lumbar facet arthrosis. SL: [id number] Consultation Notes No Data Provided for This Section Discharge Summaries No Data Provided for This Section History and Physicals No Data Provided for This Section Vital Signs Vital Sign Value Date Comments Source Systolic (mm Hg) 115 [facility] Diastolic (mm Hg) 63 12/08/2018 [facility] Heart Rate 82 12/08/2018 [facility] Height 175.26 cm 12/08/2018 [facility] Weight 61.364 12/08/2018 [facility] BMI Calculated 19.98 12/08/2018 [facility] Systolic (mm Hg) 119 11/23/2018 [facility] Diastolic (mm Hg) 58 11/23/2018 [facility] st Respitory Rate 17 11/23/2018 [facility] Systolic (mm Hg) 122 [facility] 63 11/23/2018 [facility] Respitory Rate 20 11/23/2018 [facility] Systolic (mm Hg) 120 11/23/2018 [facility] Diastolic (mm Hg) 64 11/23/2018 [facility] st Respitory Rate 22 11/23/2018 [facility] Heart Rate 81 11/23/2018 [facility] Heart Rate 81 11/22/2018 [facility] Systolic (mm Hg) 99 11/22/2018 [facility] Diastolic (mm Hg) 54 11/22/2018 [facility] Height 175.26 cm 11/22/2018 [facility] Weight 60.455 11/22/2018 [facility] BMI Calculated 19.68 11/22/2018 [facility] Temperature Oral (F) 97.9 F 11/22/2018 [facility] Heart Rate 82 11/16/2018 [facility] Temperature Oral (F) 98.1 F 11/16/2018 [facility] BMI Calculated 0.82 11/16/2018 [facility] Height 175.26 cm 11/16/2018 [facility] Weight 2.528 11/16/2018 [facility] Weight 59.545 10/25/2018 [facility] Heart Rate 79 10/25/2018 [facility] Systolic (mm Hg) 147 10/25/2018 [facility]ie [facility] Diastolic (mm Hg) 87 10/25/2018 [facility] BMI Calculated 20.72 10/07/2018 [facility] Weight 63.636 10/07/2018 [facility] Height 175.26 cm 10/07/2018 [facility] Systolic (mm Hg) 115 10/07/2018 [facility]ie [facility] Diastolic (mm Hg) 65 10/07/2018 [facility] Heart Rate 81 10/07/2018 [facility] BMI Calculated 21.2 04/30/2017 [facility] Weight 65.114 04/30/2017 [facility] Height 175.26 cm 04/30/2017 [facility] Weight 65.199 03/25/2017 [facility] BMI Calculated 21.23 03/25/2017 [facility] Height 175.26 cm 03/25/2017 [facility] Systolic (mm Hg) 136 03/25/2017 [facility]ie [facility] Diastolic (mm Hg) 79 03/25/2017 [facility] Heart Rate 86 03/25/2017 [facility] Temperature Oral (F) 99.1 F 03/25/2017 [facility] Systolic (mm Hg) 129 03/10/2017 [facility] Diastolic (mm Hg) 80 03/10/[address] Systolic (mm Hg) 131 03/10/2017 [facility] Diastolic (mm Hg) 71 03/10/[address] Respitory Rate 17 03/10/2017 [facility] Respitory Rate 14 03/10/2017 [facility] Systolic (mm Hg) 115 03/10/2017 [facility] Diastolic (mm Hg) 74 03/10/[address] Respitory Rate 15 03/10/2017 [facility] BMI Calculated 21.61 03/03/2017 [facility] Weight 66.364 03/03/2017 [facility] Height 175.26 cm 03/03/2017 [facility] Encounters Location Location Encounter Encounter Reason Attending ADM DC Stat us Source Details Type Number For Provider Date Date Visit Outpatient [id number] [facility] 10/06 [facility] [id number] Bijan 10/21 10/22 [facility]2016 [facility] Outpatient [id number] BIJAN 11/17 [facility] [place] Outpatient [id number] BIJAN 01/05 [facility] Outpatient [id number] BIJAN 03/10 [facility] [id number] Bijan 03/10 03/10 [facility] /2016 [facility] MNA Phone [id number] 03/15 03/17 Misc her [facility] Message /2016 [facility] [place] [facility] [id number] [place] [facility] [place] [facility] [id number] [place] 03/25 03/26 [facility] [place] /2016 [facility] Phone [id number] 04/20 04/22 Misc her Neurosurger Message /2017 [facility] [place] [facility] [id number] EUNICE 04/22 [facility] [place] [facility] Amb[facility] [id number] Eunice 04/22 04/22 [facility] Pre-Reg [place] /2017 [facility] [place] [facility] [id number] [place] 04/30 [facility] [place] [facility] Outpatient [id number] Bijan 04/30 05/01 [facility] Fiordaliza /2017 [facility] [place] [facility] [id number] EUNICE 06/11 Active [facility] [place] [facility] Ambulatory [id number] Eunice 06/11 06/11 [facility] Pre-Reg [place] /2017 [facility]ie [facility] [place] [facility] Spine Phone [id number] 10/08 10/10 [facility] Message /2017 Neuro [facility]NA Phone [id number] 10/04 10/06 Misc her Neurosurger Message /2018 [facility] [place] [facility] [id number] Ramona 10/07 [facility] [place] [facility] Outpatient [id number] Bijan 10/07 10/08 [facility] Fiordaliza /2018 [facility] [place] [facility] Phone [id number] 10/19 10/21 Misc her Neurosurger Message /2018 [facility] [place] [facility] [id number] Bijan [facility]25 [facility] [place] [facility] [id number] Bijan 10/25 10/26 [facility] Fi[facility]aliza [facility] [place] [facility] Phone [id number] 11/02 11/04 Misc her Neurosurger Message /2018 [facility] [place] [facility] Outpatient [id number] Bijan 11/11 11/12 [facility] Fiordaliza /2018 [facility] Outpatient [id number] Bijan 11/22 Active [facility] Fiordaliza [facility] MNA Outpatient [id number] Bijan 11/22 11/23 [facility] Fi[facility] [place] [facility] [id number] [facility] [id number] Bijan 11/23 11/23 [place] [facility] Fiordaliza [facility] MNA Phone [id number] 11/25 11/27 Mis her Neurosurger Message [facility] [place] [facility] [id number] Ramona 12/08 [facility] Ale[facility] MNA Outpatient [id number] Bijan 12/08 12/09 [facility] Fiordaliza [facility] [place] [facility] Phone [id number] 12/08 12/10 Misc her Neurosurger Message Neur [facility] [place] [facility] Phone [id number] 12/13 12/15 Misc her Neurosurger Message /2018 [facility] OP Therapy [id number] Bijan 12/26 01/25 [facility] Procedures Procedure Code Date Perfomer Comments Source Appendectomy [id number] [facility], [facility] Carpal [id number] x2 [facility] tunnel<sup>1</sup> Neuro, [facility], [facility] Cataracts<sup>2</fu [id number] x2 M[facility] er p> Neuro,[facility] Evaristo [facility] Hip replacement [id number] [facility] Evaristo [facility] History of back [id number] [facility] Neuro,[facility] Evaristo [facility] History of knee [id number] x 4 [facility]<sup>3</sup> [facility] ,[facility] Evaristo [facility] Assessment and Plan Assessment and Plan Date Source Extracted from:Title: Clinical Document 03/10/2017 [facility] Author: Bijan Mancera MD Date: 03/10/17 Neurosurgery Discharge Summary Admit Date: 03/10/2017 Discharge Date: 03/10/2017 Diagnosis: LEFT L4-L5 retained hardware, LEFT L5-S1 foramina l stenosis Procedure: LEFT L4-L5 removal of hardwar e, LEFT L5-S1 far lateral transpedicular foraminotomy Surgeon: Fiordaliza Hospital Course: Patient admitted, underwent above proced ure, tolerated well. Ambulated, urinated, tolerated oral POs, safe to discharge home in stable condition PE: Preop AFVSS IPs Q G AT [facility] R 5 5 5 5 5 L 5 5 5 4- 4- Postop AFVSS IPs Q G AT [facility] R 5 5 5 5 5 L 5 5 5 4- 4- c/d/i PLAN: Follow-up in [address] Mancera at [phone] Extracted from:Title: Clinical Document Author: Bijan Mancera MD Date: 03/10/17 PATIENT NAME: HILARIA TREVINO DATE OF OPERATION/PROCEDURE: 03/10/2017 *_*_* PREOPERATIVE DIAGNOSIS: 1. LEFT L5 radiculopathy secondary to a LEFT foraminal L5 -S1 stenosis. 2. Retained L4-L5 Medtronic Sextant i nstrumentation preventing access to the LEFT L5-S1 foramen. 3. Multiple (suspected 6) prior lumba r surgeries resulting in L4-S1 laminectomy and fusion. POSTOPERATIVE DIAGNOSIS: 1. LEFT L5 radiculopathy secondary to a LEFT foraminal L5 -S1 stenosis. 2. Retained L4-L5 Medtronic Sextant i nstrumentation preventing access to the LEFT L5-S1 foramen. 3. Multiple (suspected 6) prior lumba r surgeries resulting in L4-S1 laminectomy and fusion. PROCEDURES PERFORMED: 1. REVISION LEFT paramedian, far late ral approach to the lumbar spine from L4-S1. 2. Removal of LEFT L4-L5 Medtronic Se xtant instrumentation (pedicle screws, set screws, rods) 3. LEFT L5-S1 far lateral transpedicular foraminotomy. 4. Use of microscope for decompression. 5. Use of radiographs vertebral level localization and fo r confirmation. SURGEON: Bijan Mancera MD PICKUP DRIVER: Marko Mendosa ANESTHESIA: General endotracheal tube anesthesia. COMPLICATIONS: None. IV FLUIDS: 1100 cc crystalloid URINE OUTPUT: NA ESTIMATED BLOOD LOSS: 50 cc INDICATIONS FOR SURGERY: 71 yo M with LEFT L5-S1 foraminal stenos is, retained L4-L5 instrumentation blocking access to LEFT L5-S1, and history of multiple prior lumbar surgeries. Patient has had severe LEFT leg and groin pain since 06/2016. Of note, he has had 6 lum bar surgeries from 1999 to 2012 and RIGHT hip surgery in 2012, and has been seeing pain management for several years. CT and MRI lumbar shows what appears to be L4-S1 laminectomy. There is L5-S1 ALIF w ith dual JANUARY-type cages, no S1 screws noted. L4-5 Medtronic Sextant pedicle screw and richie construct and LEFT L4-5 TLIF graft. There is fusion across L4-S1. Ther e is collapse and bulging disc at L2-3, bulging disc at L3-4. L2-3 right severe foraminal stenosis, L3-4 bilateral moderate foraminal stenosis, L5-S1 BILATERAL severe foraminal stenosis. There is possible left LR stenosis at L3-4. On exam: IPs Q G AT [facility] R 5 5 5 5 5 L 5 5 5 4- 4- No evidence of groin abnormality Well healed multiple spine incisions He has a complex problem and we discusse d that we are unlikely to benefit his [...] insta bility. Given the severity of the compr ession, we will need to dril down the mesial inferior L5 pedicle to provide access. As such, we recommend: REVISION LEFT L5-S1 far lateral transped icular foraminotomy, removal of LEFT L4- L5 posterior spine instrumentation. We discussed the risks and benefits of s richy. Risks include bleeding, infection, neurologic injury including weakness, numbness, paralysis, , spinal fluid leak, instability, and need for reopera tion or fusion. There is a risk of disk reherniation of 10% in the first year, and 4% every year thereafter. The patient [...] jodi ent was then dosed with preoperative ant ibiotics. The patient was then turned prone onto a regular table with a Paxton frame at the flat setting. All bony prominences were padded. SCDs were placed on bilateral lower extremities. The lumba r spine was then prepped and draped in sterile fashion including alcohol, ChloraPrep and Betadine scrub and paint. Operative timeout was performed. The incision was planned for a REVISION LEFT L5-S1 far lateral transpedicular foraminotomy, removal of LEFT L4-L5 posterior spine instrumentation. Skin was injected with 0.5% Marcaine with epinephrine. A 10 blade and scalpel was then used t o make a paramedian vertical longitudinal incision LEFT of midline spanning the L4 to S1 transverse processes through the prior incision. Bovie cautery was used to deepen the incision through subcutane ous tissue and fascia. A fascial incision was made, and blunt dissection was performed between the multifidous and longissimus muscles to the transverse processe s of L4 and S1 on the LEFT. A curet was then applied to the transverse processes and AP and lateral radiographs were taken to confirm vertebral level. The prior LEFT L4-L5 Medtronic Sextant i nstrumentation was identified and then removed. This included all set screws, rods, pedicle screws and other associated hardware with the appropriate instrumenta tion. Only the LEFT hardware was remove d. All other ventral or RIGHT hardware was left in place. Dissection was continued to the LEFT L5- S1 foramen using the LEFT L5 pedicle screw [...] mal space for the foramen. A hawkins bal l probe was passed through the foramen and the nerve root was found to be not compressed. Closure was then commenced. The fascia w as closed with 0 Vicryl in interrupted fashion. The dermis was closed with 2-0 Vicryl in interrupted fashion. Skin was approximated with Mastisol, Steri-Strips, followed by Telfa and Hypafix dressing. All needle and sponge counts were correct. There were no complications during the surgery. The patient was then carefully rolled supine onto a hospital bed. The patient was revived, extubated and t aken to recovery room in stable condition, moving all 4 extremities postoperatively with good strength. Dr. Bijan Mancera was scrubbed and present for the enti re procedure. We discussed the completi on of the case patient's family. They were very grateful for the care and information. All questions were answered. Plan of Care No Data Provided for This Section Social History Social History Date Source Social History TypeResponse 11/16/2018 [facility] Substance Abuse Use: None. Alcohol Past, Type Beer. Frequency: Daily. Last use: 4 months ago. Smoking Status Current every day smoker; Type: Cigars; Exposure to Tobacco Smoke None; Cigarette Smoking Last 365 Days Yes; Reg Smoking Cessation Counseling No entered on: 11/23/18 Social History TypeResponse 11/16/2018 [facility] Alcohol Past, Type Beer. Frequency: Daily. Last use: 4 months ago. Substance Abuse Use: None. Smoking Status Current every day smoker; Type: Cigars; Exposure to Tobacco Smoke None; Cigarette Smoking Last 365 Days Yes; Reg Smoking Cessation Counseling No entered on: 12/08/18 Social History TypeResponse 11/16/2018 [facility] Alcohol Past, Type Beer. Frequency: Daily. Last use: 4 months ago. Substance Abuse Use: None. Smoking Status Current every day smoker; Type: Cigars; Exposure to Tobacco Smoke None; Cigarette Smoking Last 365 Days Yes; Reg Smoking Cessation Counseling No entered on: 12/08/18 Family History No Data Provided for This Section Advance Directives No Data Provided for This Section Functional Status No Data Provided for This Section
--- OUTSIDE RECORDS SUMMARY | 2019-10-17 11:26 | XMS REPORT | Continuity of Care Document ---
:1945 Author Organization [facility] t Address [address] [place] [address] Care Team Providers Name Role Phone Claudette JAMES R Attending Clinician Doctor Unassigned, Name Attending Clinician Unavailable Mary Mancera Attending Clinician Rishi Attending Clinician Ivania Attending Clinician Unavailable Mary Mancera Admitting Clinician Problems Condition Condition Condition Status Onset Resolution Last Treating Co mments Source Name Details Category Date Date Treatment Clinician Date LESIONS OF Diagnosis Active 2018-12-26 Memoria CERVICAL 8-07 10:39:00 l REGION LESIONS 07:00: [place] OF 00 CERVICAL REGION Active 11/23/2018 [facility] UNK Diagnosis Active 2018-11-23 Mem oria 7-16 16:23:00 l UNK 00:00: Alejandro 00 Active 11/01/2018 [facility] ACUTE Diagnosis Active 2018-11-24 Mem oria CERVICAL 7-16 16:22:00 l RADICULOPA ACUTE 00:00: Maxine nn THY CERVICAL 00 RADICULOPA THY Active 11/01/2018 [facility] DX: Diagnosis Active 2018-11-24 Mem oria M54.12=RAD 7-15 16:22:00 l ICULOPATHY DX: 00:00: Kendrick n , CERVICAL M54.12=RAD 00 REGIO ICULOPATHY , CERVICAL REGIO Active 10/31/2018 [facility] M54.16 Diagnosis Active 2016-042017-03-10 [facility] oria M47.816 0- 07:49:00 l M54.16 00:00: Alejandro M47.816 00 Active 02/11/2017 [facility] DX" Diagnosis Active 2016-10-21 Kayla oria M47.816= 6- 08:01:00 l DX" 00:00: [place] M47.816= 00 Active 10/15/2016 [facility] Radiculopa Problem 2017-03-13 M emoria thy, 01:45:20 l lumbar [place] region Radiculopa thy, lumbar region 03/13/2017 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 jayesh a prostatic (disorder) hyperplasi a (disorder) Active Problem 01/26/2019 [facility] Chronic Problem Active 2019-01-26 João jaymie pain 23:27:02 l (finding) Chronic Herm jayesh pain (finding) Active Problem 01/26/2019 [facility] Hypertensi Problem Active 2019-01-26 M emoria ve 23:27:02 l disorder, [place] systemic Hypertensi arterial ve (disorder) disorder, systemic arterial (disorder) Active Problem 01/26/2019 [facility] RADICULOPA Diagnosis Active 2018-11-24 Memoria THY, 16:22:00 l CERVICAL [place] REGION RADICULOPA THY, CERVICAL REGION Active 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 RADICULOPA Diagnosis Active 2017-03-10 Memoria THY, 07:49:00 l LUMBAR [place] REGION RADICULOPA THY, LUMBAR REGION Active [facility] Allergies, Adverse Reactions, Alerts Allergy Allergy Status Severity Reaction(s) Onset Inactive Treating Comm ents Source Name Type Date Date Clinician penicill penicill Active Memori a ins ins l [place] morphine morphine Active Memori a l [place] Social History Social Habit Start Date Stop Date Quantity Comments Source Social History 2018-11-16 2018-11-16 [facility] Navdeep irena 17:55:16 17:55:16 Medications Ordered Filled Start Stop Current Ordering Indication Dosage Frequency Signature Comments Components Source Medication Medication Date Date Medication? Clinician (SIG) Name Name gabapentin Yes 300 mg = 1 M emoria 300 MG Oral 12-08 cap, PO, l Capsule 13:25: BID, # 90 Maxine nn 00 cap, 0 Refill(s), Pharmacy: [facility] [id number] Senmdot No 2 tab, Memoria 11-24 Route: PO, l 14:00: Dosing [place] Weight 60.455, kg, Daily, Start date: 11/24/18 9:00:00 CDT, Duration: 30 day, Stop date: 12/23/18 9:00:00 CDT heparin 2018-0 No 5,000 Memoria sodium, 11-24 unit, l porcine 13:00: Route: Alejandro 2500 UNT/ML 00 SUB-Q, Injectable Drug form: Solution INJ, Q12H, Dosing Weight 60.455, kg, Start date: 11/24/18 8:00:00 CDT, Duration: 30 day, Stop date: 12/23/18 21:00:00 CDT Cefazolin 0 No 1 gm, Memoria 11-24 Route: l 05:00: IVPB, Drug Alejandro form: INJ, Q8H, Dosing Weight 60.455, kg, Start date: 11/24/18 0:00:00 CDT, Duration: 3 doses or times, Stop date: 11/24/18 16:00:00 CDT, ABX Indication : Surgical Prophylaxi s Famotidine 2019-0 No 20 mg, 1 Mem oria 20 MG Oral 11-24 tab, l Tablet 02:00: Route: PO, Maxine nn [Pepcid] 00 Drug form: TAB, Q12H, Dosing Weight 60.455, kg, Start date: 11/23/18 21:00:00 CDT, Duration: 30 day, Stop date: 12/23/18 9:00:00 CDT Docusate 2019-0 No 100 mg, 1 João jaymie Sodium 100 11-23 cap, l MG Oral 22:00: Route: PO, Herm jayesh Capsule 00 BID, [Colace] Dosing Weight 60.455, kg, Start date: 11/23/18 17:00:00 CDT, Duration: 30 day, Stop date: 12/23/18 9:00:00 CDT Ondansetron 2019-0 No 4 mg, Memor ia 11-23 Route: l 21:37: IVP, ONCE, [place] Dosing Weight 60.455, kg, PRN Nausea & Vomiting, Start date: 11/23/18 16:37:00 CDT Flumazenil 2019-0 No 0.2 mg, João jaymie 11-23 Route: l 21:37: IVP, PRN, [place] Dosing Weight 60.455, kg, PRN Benzodiaze pine Reversal, Initial dose, Start date: 11/23/18 16:37:00 CDT, Duration: 30 day, Stop date: 12/23/18 16:36:00 CDT Naloxone 2019-0 No 0.4 mg, Memori a 11-23 Route: l 21:37: IVP, Alejandro 00 Q2MIN, Dosing Weight 60.455, kg, PRN Narcotic Reversal, Start date: 11/23/18 16:37:00 CDT, Duration: 8 doses or times, Stop date: Limited # of times Oxycodone 2019-0 No 10 mg, Memori a Hydrochlori 11-23 Route: PO, l de 5 MG 21:37: Drug form: Herm jayesh Oral Tablet 00 TAB, Q4H, Dosing Weight 60.455, kg, PRN Pain Score 7-10, Start date: 11/23/18 16:37:00 CDT, Duration: 30 day, Stop date: 12/23/18 16:36:00 CDT Fentanyl 2019-0 No 25 Memoria 8- microgram, l 21:37: Route: [place] 00 IVP, Q5Min, Dosing Weight 60.455, kg, PRN Pain Score 4-6, Priority: Routine, Start date: 11/23/18 16:37:00 CDT, Duration: 4 doses or times, Stop date: Limited # of times Acetaminoph 2019-0 Yes 1 tab, PO, Memoria en 325 MG / 11-23 Q4H, PRN l Hydrocodone 21:18: Pain, # 60 [place] Bitartrate 00 tab, 0 5 MG Oral Refill(s), Tablet given to patient magnesium 2019-0 No 300 ml, Memor ia citrate 11-23 Route: PO, l 21:17: Drug Form: [place] 00 LIQ, Dosing Weight 60.455, kg, ONCE, PRN Constipati on, Start date: 11/23/18 16:17:00 CDT Dilaudid 2019-0 No 1 mg, Memoria 11-23 Route: IV, l 21:17: Q3H, Alejandro 00 Dosing Weight 60.455, kg, PRN Pain, Start date: 11/23/18 16:17:00 CDT, Duration: 30 day, Stop date: 12/23/18 16:16:00 CDT Zofran 2019-0 No 4 mg, Memoria 11-23 Route: IV, l 21:17: Drug form: Alejandro 00 INJ, Q8H, Dosing Weight 60.455, kg, PRN Nausea, Start date: 11/23/18 16:17:00 CDT, Duration: 30 day, Stop date: 12/23/18 16:16:00 CDT Acetaminoph 2019-0 No 1 tab, João jaymie en 325 MG / 11-23 Route: PO, l Hydrocodone 21:17: Drug Form: Alejandro Bitartrate 00 TAB, 5 MG Oral Dosing Tablet Weight 60.455, kg, Q4H, PRN Pain, Start date: 11/23/18 16:17:00 CDT, Duration: 30 day, Stop date: 12/23/18 16:16:00 CDT Tylenol 2019-0 No 650 mg, Memoria 11-23 Route: PO, l 21:17: Drug form: [place] TAB, Q4H, Dosing Weight 60.455, kg, PRN Pain, Start date: 11/23/18 16:17:00 CDT, Duration: 30 day, Stop date: 12/23/18 16:16:00 CDT Sodium 2018-0 No 1,000 mL, Memori a Chloride 11-23 Rate: 75 l 0.9% IV 21:17: ml/hr, [place] 1000 mL 00 Infuse over: 13.3 hr, Route: IV, Dosing Weight 60.455 kg, Total Volume: 1,000, Start date: 11/23/18 16:17:00 CDT, Duration: 30 day, Stop date: 12/23/18 16:16:00 CDT, 1.72, m2 phenylephri 2018- No Route: IV, Memoria ne (ANES) 11-23 Drug form: l 19:57: INJ, ONCE, Stop date: 11/23/18 14:57:00 CDT ketAMINE 2018-0 No Route: IV, Mem oria (ANES) 11-23 Drug form: l 19:27: INJ, ONCE, Stop date: 11/23/18 14:27:00 CDT dexamethaso 2018-0 No Route: IV, Memoria ne (ANES) 11-23 Drug form: l 18:41: INJ, ONCE, Stop date: 11/23/18 13:41:00 CDT propofol 2019-0 No Route: IV, Mem oria (ANES) 11-23 Drug form: l 18:36: INJ, ONCE, Stop date: 11/23/18 13:36:00 CDT lidocaine 2018-0 No Route: IV, Me moria (ANES) 11-23 Drug form: l 18:36: INJ, ONCE, Stop date: 11/23/18 13:36:00 CDT rocuronium 2018-0 No Route: IV, M emoria (ANES) 11-23 Drug form: l 18:36: INJ, ONCE, Stop date: 11/23/18 13:36:00 CDT fentaNYL 2019-0 No Route: IV, Mem oria (ANES) 11-23 Drug form: l 18:36: INJ, ONCE, Stop date: 11/23/18 13:36:00 CDT ondansetron No Route: IV, Memoria (ANES) 11-23 Drug form: l 18:36: INJ, ONCE, Stop date: 11/23/18 13:36:00 CDT midazolam 2019-0 No Route: IV, Me moria (ANES) 11-23 Drug form: l 18:36: SOLN, 00 ONCE, Stop date: 11/23/18 13:36:00 CDT [place] No Route: IV, João jaymie (ANES) 500 11-23 Drug Form: l mL 18:28: INJ, Start date: 11/23/18 13:28:00 CDT, Stop date: 11/23/18 14:28:00 CDT ceFAZolin No Route: IV, Me moria (ANES) 1000 11-23 Drug form: l mg 18:00: INJ, Start date: 11/23/18 13:00:00 CDT, Stop date: 11/23/18 14:00:00 CDT Lactated No Route: IV, Mem oria Ringers 11-23 Total l Injection 17:28: Volume: Maxine nn IV (ANES) 00 1,000, 1000 mL Start date: 11/23/18 12:28:00 CDT, Stop date: 11/23/18 13:28:00 CDT Calcium 2019-0 No 1,000 mL, Memor ia Chloride 11-23 Rate: 75 l 0.0014 15:46: ml/hr, MEQ/ML / 00 Infuse Potassium over: 13.3 Chloride hr, Route: 0.004 IV, Dosing MEQ/ML / Weight Sodium 60.455 kg, Chloride Total 0.103 Volume: MEQ/ML / 1,000, Sodium Start Lactate date: 0.028 11/23/18 MEQ/ML 10:46:00 Injectable CDT, Solution Duration: 30 day, Stop date: 12/23/18 10:45:00 CDT, 1.72, m2 losartan 25 2019-0 Yes 25 mg = 1 M emoria mg oral 7-31 tab, PO, l tablet 18:46: Daily, # [place] 00 30 tab, 0 Refill(s) rOPINIRole 2019-0 Yes 0.5 mg = 1 M emoria 0.5 mg oral 6-21 tab, PO, l tablet 15:06: TID, 0 [place] 00 Refill(s) tizanidine 2019-0 Yes 8 mg = 2 Mem oria 4 mg oral 6-21 cap, PO, l capsule 15:06: TID, 0 Alejandro 00 Refill(s) cyproheptad 2019-0 Yes 4 mg = 1 Me moria ine 4 mg 6-21 tab, PO, l oral tablet 15:06: TID, 0 Herm jayesh 00 Refill(s) gabapentin 2019-0 Yes 300 mg = 1 M emoria 300 MG Oral 6-21 cap, PO, l Capsule 15:06: TID, 0 Alejandro 00 Refill(s) Senokot 2016-04 No 2 tab, Memoria 1-23 Route: PO, l 15:00: Dosing Alejandro 00 Weight 66.364, kg, Daily, Start date: 03/11/17 9:00:00 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, Duration: 30 day, Stop date: 04/09/17 9:00:00 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 heparin 2016-04 No 5,000 Memoria sodium, 1-23 unit, l porcine 14:00: Route: Alejandro 2500 UNT/ML 00 SUB-Q, Injectable Drug form: Solution INJ, Q12H, Dosing Weight 66.364, kg, Start date: 03/11/17 8:00:00 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, Duration: 30 day, Stop date: 04/09/17 21:00:00 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 Famotidine 2016- No 20 mg, 1 Mem oria 20 MG Oral 1-23 tab, l Tablet 03:00: Route: PO, Maxine nn [Pepcid] 00 Drug form: TAB, Q12H, Dosing Weight 66.364, kg, Start date: 03/10/17 21:00:00 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, Duration: 30 day, Stop date: 04/09/17 9:00:00 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 Vancomycin 2016-04 No 1 gm, Memori a 1-23 Route: l 03:00: IVPB, Drug Alejandro form: INJ, Q12H, Dosing Weight 66.364, kg, Start date: 03/10/17 21:00:00 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, Duration: 4 doses or times, Stop date: 03/12/17 9:00:00 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, ABX Indication : Surgical Prophylaxi s Docusate 2016-04 No 100 mg, 1 João jaymie Sodium 100 05-10 cap, l MG Oral 23:00: Route: PO, Herm jayesh Capsule 00 BID, [Colace] Dosing Weight 66.364, kg, Start date: 03/10/17 17:00:00 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, Duration: 30 day, Stop date: 04/09/17 9:00:00 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 Meperidine 2016-04 No 12.5 mg, Mem oria 05-10 Route: l 19:51: IVP, [place] 00 Q30Min, Dosing Weight 66.364, kg, PRN Other -See Comment, For shivering, Start date: 03/10/17 13:51:00 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, Duration: 2 doses or times, Stop date: Limited # of times Ondansetron 2016-04 No 4 mg, Memor ia 05-10 Route: l 19:51: IVP, ONCE, [place] 00 Dosing Weight 66.364, kg, PRN Nausea & Vomiting, Start date: 03/10/17 13:51:00 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 Diphenhydra 2016-04 No 12.5 mg, Me moria mine 05-10 Route: l 19:51: IVP, Drug Alejandro 00 form: INJ, Q6H, Dosing Weight 66.364, kg, PRN Itching, Start date: 03/10/17 13:51:00 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, Duration: 30 day, Stop date: 04/09/17 13:50:00 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 Albuterol 2016-04 No 2.49 mg, João jaymie 0.83 MG/ML 05-10 Route: l Inhalant 19:51: NEB, [place] Solution 00 Q20Min, Dosing Weight 66.364, kg, PRN Wheezing, Priority: STAT, Start date: 03/10/17 13:51:00 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, Duration: 30 day, Stop date: 04/09/17 13:50:00 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 Flumazenil 2016-04 No 0.2 mg, João jaymie 05-10 Route: l 19:51: IVP, PRN, Alejandro 00 Dosing Weight 66.364, kg, PRN Benzodiaze pine Reversal, Initial dose, Start date: 03/10/17 13:51:00 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, Duration: 30 day, Stop date: 04/09/17 13:50:00 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 Naloxone 2016-04 No 0.4 mg, Memori a 05-10 Route: l 19:51: IVP, Alejandro 00 Q2MIN, Dosing Weight 66.364, kg, PRN Narcotic Reversal, Start date: 03/10/17 13:51:00 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, Duration: 8 doses or times, Stop date: Limited # of times Hydralazine 2016-04 No 10 mg, João jaymie 05-10 Route: l 19:51: IVP, Alejandro 00 Q20Min, Dosing Weight 66.364, kg, PRN Elevated BP, Start date: 03/10/17 13:51:00 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, Duration: 2 doses or times, Stop date: Limited # of times Acetaminoph 2016-04 No 1,000 mg, M emoria en 05-10 Route: PO, l 19:51: Drug form: Alejandro 00 TAB, ONCE, Dosing Weight 66.364, kg, PRN Pain Score 1-3, Start date: 03/10/17 13:51:00 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 esmolol 2016-04 No 10 mg, Memoria 05-10 Route: l 19:51: IVP, [place] 00 Q5Min, Dosing Weight 66.364, kg, PRN Other -See Comment, Start date: 03/10/17 13:51:00 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, Duration: 5 doses or times, Stop date: Limited # of times Labetalol 2016-04 No 10 mg, Memori a 05-10 Route: l 19:51: IVP, Alejandro 00 Q5Min, Dosing Weight 66.364, kg, PRN Elevated BP, Start date: 03/10/17 13:51:00 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, Duration: 5 doses or times, Stop date: Limited # of times Oxycodone 2016-04 No 10 mg, Memori a 05-10 Route: PO, l 19:51: Drug form: [place] 00 TAB, Q4H, Dosing Weight 66.364, kg, PRN Pain Score 7-10, Start date: 03/10/17 13:51:00 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, Duration: 30 day, Stop date: 04/09/17 13:50:00 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 Fentanyl 2016-04 No 25 Memoria 05-10 microgram, l 19:51: Route: Alejandro 00 IVP, Q5Min, Dosing Weight 66.364, kg, PRN Pain Score 4-6, Priority: Routine, Start date: 03/10/17 13:51:00 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, Duration: 4 doses or times, Stop date: Limited # of times Hydromorpho 2016-04 No 0.5 mg, Mem oria ne 05-10 Route: l 19:51: IVP, Alejandro 00 Q5Min, Dosing Weight 66.364, kg, PRN Pain Score 7-10, Start date: 03/10/17 13:51:00 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, Duration: 4 doses or times, Stop date: Limited # of times Acetaminoph 2016-04 Yes 1 tab, PO, Memoria en 325 MG / 05-10 Q4H, PRN l Hydrocodone 19:21: Pain, 0 Her moore Bitartrate 00 Refill(s) 5 MG Oral Tablet magnesium 2016-04 No 300 ml, Memor ia citrate 05-10 Route: PO, l 19:19: Drug Form: [place] 00 LIQ, Dosing Weight 66.364, kg, ONCE, PRN Constipati on, Start date: 03/10/17 13:19:00 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 Acetaminoph 2016-04 No 1 tab, João jaymie en 325 MG / 05-10 Route: PO, l Hydrocodone 19:19: Drug Form: [place] Bitartrate 00 TAB, 5 MG Oral Dosing Tablet Weight 66.364, kg, Q4H, PRN Pain, Start date: 03/10/17 13:19:00 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, Duration: 30 day, Stop date: 04/09/17 13:18:00 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 Dilaudid 2016-04 No 1 mg, Memoria 05-10 Route: IV, l 19:19: Q3H, [place] 00 Dosing Weight 66.364, kg, PRN Pain, Start date: 03/10/17 13:19:00 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, Duration: 30 day, Stop date: 04/09/17 13:18:00 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 Tylenol 2016-04 No 650 mg, Memoria 05-10 Route: PO, l 19:19: Drug form: Alejandro 00 TAB, Q4H, Dosing Weight 66.364, kg, PRN Pain, Start date: 03/10/17 13:19:00 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, Duration: 30 day, Stop date: 04/09/17 13:18:00 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 Zofran 2016-04 No 4 mg, Memoria 05-10 Route: IV, l 19:19: Drug form: [place] 00 INJ, Q8H, Dosing Weight 66.364, kg, PRN Nausea, Start date: 03/10/17 13:19:00 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, Duration: 30 day, Stop date: 04/09/17 13:18:00 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 Sodium 2016-04 No 1,000 mL, Memori a Chloride 05-10 Rate: 75 l 0.9% IV 19:19: ml/hr, [place] 1000 mL 00 Infuse over: 13.3 hr, Route: IV, Dosing Weight 66.364 kg, Total Volume: 1,000, Start date: 03/10/17 13:19:00 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, Duration: 30 day, Stop date: 04/09/17 13:18:00 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, 1.8, m2 metoclopram 2016-04 No Route: IV, Memoria arben (ANES) 05-10 Drug form: l 19:09: INJ, ONCE, Stop date: 03/10/17 13:09:00 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 acetaminoph 2016-04 No Route: IV, Memoria en (ANES) 05-10 Drug form: l 10 mg 17:46: INJ, Start Kendrick n 00 date: 03/10/17 11:46:00 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, Stop date: 03/10/17 12:46:00 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 dexamethaso 2016-04 No Route: IV, Memoria ne (ANES) 05-10 Drug form: l 17:29: INJ, ONCE, Stop date: 03/10/17 11:29:00 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 lidocaine 2016-04 No Route: IV, Me moria (ANES) 05-10 Drug form: l 17:19: INJ, ONCE, Stop date: 03/10/17 11:19:00 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 fentaNYL 2016-04 No Route: IV, Mem oria (ANES) 05-10 Drug form: l 17:19: INJ, ONCE, Stop date: 03/10/17 11:19:00 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 midazolam 2016-04 No Route: IV, Me moria (ANES) 05-10 Drug form: l 17:19: SOLN, Alejandro 00 ONCE, Stop date: 03/10/17 11:19:00 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 ondansetron 2016-04 No Route: IV, Memoria (ANES) 05-10 Drug form: l 17:19: INJ, ONCE, [place] 00 Stop date: 03/10/17 11:19:00 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 propofol 2016-04 No Route: IV, Mem oria (ANES) 05-10 Drug form: l 17:19: INJ, ONCE, Stop date: 03/10/17 11:19:00 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 rocuronium 2016-04 No Route: IV, M emoria (ANES) 05-10 Drug form: l 17:19: INJ, ONCE, Stop date: 03/10/17 11:19:00 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 ketAMINE 2016-04 No Route: IV, Mem oria (ANES) 05-10 Drug form: l 17:19: INJ, ONCE, Stop date: 03/10/17 11:19:00 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 phenylephri 2016-04 No Route: IV, Memoria ne (ANES) 05-10 Drug form: l 17:14: INJ, ONCE, Stop date: 03/10/17 11:14:00 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 vancomycin 2016-04 No Route: IV, M emoria (ANES) 1000 05-10 Drug form: l mg 16:29: INJ, Start date: 03/10/17 10:29:00 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, Stop date: 03/10/17 11:29:00 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 Lactated 2016-04 No Route: IV, Mem oria Ringers 05-10 Total l Injection 16:12: Volume: Maxine nn IV (ANES) 00 1,000, 1000 mL Start date: 03/10/17 10:12:00 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, Stop date: 03/10/17 11:12:00 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 Calcium 2016-04 No 1,000 mL, Memor ia Chloride 05-10 Rate: 25 l 0.0014 14:52: ml/hr, Alejandro MEQ/ML / 00 Infuse Potassium over: 40 Chloride hr, Route: 0.004 IV, Dosing MEQ/ML / Weight Sodium 66.364 kg, Chloride Total 0.103 Volume: MEQ/ML / 1,000, Sodium Start Lactate date: 0.028 03/10/17 MEQ/ML 8:52:00 Injectable 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, Solution Duration: 30 day, Stop date: 04/09/17 8:51:00 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, 1.8, m2 Fentanyl 2016-04 Yes 25 Memoria 1-15 microgram, l 15:52: TOP, 0 Alejandro 00 Refill(s) Acetaminoph 2016-04 Yes 1 tab, PO, Memoria en 325 MG / 1-15 Q6H, 0 l Hydrocodone 15:52: Refill(s) H ermann Bitartrate 00 10 MG Oral Tablet losartan 2016-04 Yes 100 mg = 1 Mem oria 100 mg oral 1-15 tab, PO, l tablet 15:51: Daily, 0 [place] 00 Refill(s) NIFEdipine 2016-04 Yes 30 mg = 1 Me moria 30 mg oral 1-15 tab, PO, l tablet, 15:51: Daily, as Maxine nn extended 00 needed release during winter season, 0 Refill(s) tamsulosin 2016-04 Yes 0.4 mg = 1 M emoria 0.4 mg oral 1-15 cap, PO, l capsule 15:51: Daily, as Maxine nn 00 needed pantoprazol 2016-04 Yes 40 mg = 1 M emoria e 40 mg 1-15 tab, PO, l oral 15:51: Daily, 0 Alejandro enteric 00 Refill(s) coated tablet Vital Signs Vital Name Observation Time Observation Value Comments Source Systolic (mm Hg) 2018-12-08 13:36:00 João Allen Diastolic (mm Hg) 2018-12-08 13:36:00 [facility] jacob Allen Heart Rate 2018-12-08 13:36:00 [facility] Height 2018-12-08 13:36:00 175.26 cm [facility] Weight 2018-12-08 13:36:00 [facility] BMI Calculated 2018-12-08 13:36:00 Shani Simon Systolic (mm Hg) 2018-11-23 23:15:00 João denilson [place] Diastolic (mm Hg) 2018-11-23 23:15:00 Kayla Allen Respitory Rate 2018-11-23 23:15:00 Shani Simon Systolic (mm Hg) 2018-11-23 23:00:00 João riaclif Alejandro Diastolic (mm Hg) 2018-11-23 23:00:00 Mem orial Alejandro Respitory Rate 2018-11-23 23:00:00 Memori al [place] Systolic (mm Hg) 2018-11-23 22:45:00 João rial [place] Diastolic (mm Hg) 2018-11-23 22:45:00 Mem orial [place] Respitory Rate 2018-11-23 22:45:00 Memori al [place] Heart Rate 2018-11-23 15:50:00 [facility] Heart Rate 2018-11-22 18:41:00 [facility] [place] Systolic (mm Hg) 2018-11-22 18:41:00 João rial [place] Diastolic (mm Hg) 2018-11-22 18:41:00 Mem orial [place] Height 2018-11-22 18:41:00 175.26 cm [facility] [place] Weight 2018-11-22 18:41:00 [facility] BMI Calculated 2018-11-22 18:41:00 Memori al [place] Temperature Oral (F) 2018-11-22 18:41:00 97.9 F [facility] [place] Heart Rate 2018-11-16 18:44:00 [facility] [place] Temperature Oral (F) 2018-11-16 18:44:00 98.1 F [facility] [place] BMI Calculated 2018-11-16 18:07:00 [facility] [place] Height 2018-11-16 18:07:00 175.26 cm [facility] [place] Weight 2018-11-16 18:07:00 [facility] [place] Weight 2018-10-25 23:40:00 [facility] Heart Rate 2018-10-25 23:40:00 [facility] [place] Systolic (mm Hg) 2018-10-25 23:40:00 João rial Alej[place] Diastolic (mm Hg) 2018-10-25 23:40:00 Mem orial [place] BMI Calculated 2018-10-07 15:00:00 Memori al [place] Weight 2018-10-07 15:00:00 [facility] [place] Height 2018-10-07 15:00:00 175.26 cm [facility] [place] Systolic (mm Hg) 2018-10-07 15:00:00 João rial Alej[place] Diastolic (mm Hg) 2018-10-07 15:00:00 [facility] Heart Rate 2018-10-07 15:00:00 [facility] BMI Calculated 2017-04-30 15:47:00 [facility] Weight 2017-04-30 15:47:00 [facility] Height 2017-04-30 15:47:00 175.26 cm [facility] [place] Weight 2017-03-25 14:32:00 [facility] [place] BMI Calculated 2017-03-25 14:32:00 [facility] [place] Height 2017-03-25 14:32:00 175.26 cm [facility] [place] Systolic (mm Hg) 2017-03-25 14:32:00 [facility]ão [facility] [place] Diastolic (mm Hg) 2017-03-25 14:32:00 [facility] [place] Heart Rate 2017-03-25 14:32:00 [facility] Temperature Oral (F) 2017-03-25 14:32:00 99.1 F [facility] [place] Systolic (mm Hg) 2017-03-10 21:15:00 [facility]ão [facility] [place] Diastolic (mm Hg) 2017-03-10 21:15:00 [facility] [place] Systolic (mm Hg) 2017-03-10 20:30:00 [facility] [place] Diastolic (mm Hg) 2017-03-10 20:30:00 [facility] Respitory Rate 2017-03-10 20:30:00 [facility] Respitory Rate 2017-03-10 20:15:00 [facility] Systolic (mm Hg) 2017-03-10 20:15:00 [facility] Diastolic (mm Hg) 2017-03-10 20:15:00 [facility] [place] Respitory Rate 2017-03-10 20:00:00 [facility] BMI Calculated 2017-03-03 15:17:00 [facility] Weight 2017-03-03 15:17:00 [facility] [place] Height 2017-03-03 15:17:00 175.26 cm [facility] Procedures Procedure Date / Time Performed Performing Clinician Sour e Appendectomy [facility] Carpal tunnel<sup>1</sup> [facility] Cataracts<sup>2</sup> [facility] Hip replacement [facility] [place] History of back surgery [facility] [place] History of knee [facility] surgery<sup>3</sup> Encounters Start End Encounter Admission Attending Care Care Encounter Source Date/Time Date/Time Type Type Clinicians Facility Department ID 2019-10-10 2019-10-10 [facility] [id number] 10:55:00 23:59:00 Encounter Ramon cai [place] [id number] [place] [id number] [place] [id number] 2019-10-10 2019-10-10 Orders Doctor TRINY [id number] 00:00:00 00:00:00 Only Unassigned, ALYS[place] [id number] [place] [facility] [id number] 2018-12-26 2019-01-24 Outpatient Fiordaliza, 2.16.840. [id number] 09:43:00 23:59:00 Bijan [id number].[id number] JasRaviMartinez [id number] 2018-12-13 2018-12-14 Outpatient MHMISCHER MHMISCHER [id number] 08:11:10 23:59:59 15 2018-12-08 2018-12-09 Outpatient MHMISCHER MHMISCHER [id number] 15:26:36 23:59:59 14 2018-12-08 2018-12-08 Outpatient Fiordaliza, MHMISCHER MHMISCHER [id number] 08:20:00 23:59:59 Bijan Holguin ChiMauricio 2018-11-25 2018-11-26 Outpatient MHMISCHER MHMISCHER [id number] 12:32:01 23:59:59 13 2018-11-23 2018-11-23 Outpatient Fiordaliza, MHSE MHSE [id number] 16:11:00 18:38:00 Bijan Marquez ChivalentinMartinez 2018-11-23 2018-11-23 Outpatient MHSE MHSE [id number] 16:11:00 16:11:00 Jayden cai [facility] 2018-11-22 2018-11-22 Outpatient Fiordaliza, MHMISCHER MHMISCHER [id number] 14:15:00 23:59:59 Bijan Hernandez 2018-11-11 2018-11-11 Outpatient Fiordaliza, MHSE MHSE [id number] 13:33:00 23:59:00 Bijan Hernandez 2018-11-11 2018-11-11 Outpatient MHSE MHSE [id number] MH 13:33:00 13:33:00 Jayden cai [facility] 2018-11-02 2018-11-03 Outpatient MHMISCHER MHMISCHER [id number] 13:12:11 23:59:59 12 2018-10-25 2018-10-25 Outpatient Fiordaliza, MHMISCHER MHMISCHER [id number] 08:00:00 23:59:59 Bijan Hernandez 2018-10-19 2018-10-20 Outpatient MHMISCHER MHMISCHER [id number] 11:29:16 23:59:59 11 2018-10-07 2018-10-07 Outpatient Rishi, MHMISCHER MHMISCHER [id number] 10:00:00 23:59:59 Ramona 09 2018-10-04 2018-10-05 Outpatient MHMISCHER MHMISCHER [id number] 11:24:28 23:59:59 10 2017-10-08 2017-10-09 Outpatient MHMISCHER MHMISCHER [id number] 12:20:00 23:59:59 09 2017-06-11 2017-06-11 Outpatient Redd, MHMISCHER MHMISCHER [id number] 08:30:00 08:30:00 Roxie 08 2017-04-30 2017-04-30 Outpatient Fiordaliza, MHMISCHER MHMISCHER [id number] 10:00:00 23:59:59 Bijan Hernandez 2017-04-22 2017-04-22 Outpatient Redd, MHMISCHER MHMISCHER [id number] 09:00:00 09:00:00 Roxie 06 2017-04-20 2017-04-21 Outpatient MHMISCHER MHMISCHER [id number] 16:07:00 23:59:59 08 2017-03-25 2017-03-25 Outpatient Redd, MHMISCHER MHMISCHER [id number] 08:30:00 23:59:59 Roxie 05 2017-03-15 2017-03-16 Outpatient MHMISCHER MHMISCHER [id number] 08:06:00 23:59:59 07 2017-03-10 2017-03-10 Outpatient SUKH [facility] [id number] 07:48:00 15:45:00 Bijan Mary 2016-10-21 2016-10-21 Outpatient SUKH [place] [facility] [id number] 07:54:00 23:59:00 Bijan Mary Results Test Description Test Time Test Comments Results Result Sourc e Comments BLOOD BANK RESULTS 2018-11-16 Negative [facility] 18:28:00 (11/16/18 1:28 Alejandro PM) CHEM PANEL 2018-11-16 35 [facility] 18:28:00 [place] CHEM PANEL 2018-11-16 4.0 [facility] 18:28:00 Alejandro CHEM PANEL 2018-11-16 108 [facility] 18:28:00 Alejandro CHEM PANEL 2018-11-16 139 [facility] 18:28:00 [place] CHEM PANEL 2018-11-16 9.1 [facility] 18:28:00 [place] CHEM PANEL 2018-11-16 25 [facility] 18:28:00 [place] CHEM PANEL 2018-11-16 7.6 [facility] 18:28:00 [place] CHEM PANEL 2018-11-16 26 [facility] 18:28:00 [place] CHEM PANEL 2018-11-16 3.7 [facility] 18:28:00 [place] CHEM PANEL 2018-11-16 107 [facility] 18:28:00 Alejandro CHEM PANEL 2018-11-16 15 [facility] 18:28:00 Alej[place] CHEM PANEL 2018-11-16 0.5 [facility] 18:28:00 [place] CHEM PANEL 2018-11-16 86 [facility] 18:28:00 Alej[place] CHEM PANEL 2018-11-16 1.88 [facility] 18:28:00 Alejandro CHEM PANEL 2018-11-16 29 [facility] 18:28:00 [place] CHEM PANEL 2018-11-16 10.0 [facility] 18:28:00 [place] CHEM PANEL 2018-11-16 3.9 [facility] 18:28:00 [place] CHEM PANEL 2018-11-16 18:28:00 Test Item Value Reference Range Interpretation Comme nts B/C Ratio (test code = B/C Ratio) 15 1 6-25 [facility] HermannCHEM [id number] 18:28:00 Test Item Value Reference Range Interpretation Comments A/G Ratio (test code = A/G Ratio) 0.9 1 0.7-1.6 [facility] BdmkqrrOMSWYJZAVP0339-97-34 18:28:00 Test Item Value Reference Range Interpretation Comments PT (test code = PT) 12.4 s 12.0-14.7 [facility] IelsivsTRQGQJFURO9498-50-03 18:28:00 Test Item Value Reference Range Interpretation Comments PTT (test code = PTT) 32.5 s 22.9-35.8 [facility] IszslygQICVGXWMUS3079-50-79 18:28:00 Test Item Value Reference Range Interpretation Comments INR (test code = INR) 0.94 1 0.85-1.17 [facility] HqggekfWABZMVSJKY9502-67-24 18:28:000.1[facility] HermannHEMATOLOGY 2018-11-16 18:28:000.8[facility] InyawinYQEFITDMMI9165-81-15 18:28:000.1[facility] OuiokirDLOSQALUHS0375-67-75 18:28:001+ *ABN*(11/16/18 1:28 PM)[facility] [place] VVHYVIEXRW4252-33-57 18:28:002.9[facility] JrgbbxbRTCHFSZRDC7109-69-10 18:28:000.7 [facility] OuxwcznGEGIIYTUKE8203-85-29 18:28:001.4[facility] HermannHEMATOLOGY 2018-11-16 18:28:0063.8[facility] IbiybwkSOWEPBXVCO1317-73-63 18:28:006.9[facility] JmhkzscHMRYZUGNZM8373-40-90 18:28:007.1[facility] SqkdszdHDSJJPJTRD8699-47-01 18:28:0027.0[facility] CuvqmvsXMCOBPHYEH6526-49-94 18:28:0012.8[facility] [place] RCLECIOSIW5157-12-89 18:28:35464Fxaccsjr WheiqyiLWZRFQLYND7606-49-16 18:28:007.3 [facility] AohwzivIPZNORMZWY1658-69-99 18:28:0011.6[facility] HermannHEMATOLOGY 2018-11-16 18:28:0035.4[facility] TwfooavXYQTAYTARY0080-10-80 18:28:00 Test Item Value Reference Range Interpretation Comments MCH (test code = MCH) 35.8 pg 27.0-31.0 [facility] RvcgajfGQXPFLEDHR1059-32-73 18:28:003.25[facility] HermannHEMATOLOGY 2018-11-16 18:28:01149.1[facility] YijomqvCEBAIMWOCH2670-06-55 18:28:0032.9 [facility] WhufckwQBFXFEAISB7440-93-05 18:28:0010.8[facility] HermannBLOOD BANK RTJZNJL5956-95-03 15:27:00Negative (03/03/17 9:27 AM)[facility] HermannCHEM PANEL 2017-03-03 15:27:0012[facility] HermannCHEM LAEMP0724-12-52 15:27:0011.0[facility] HermannCHEM VNHDI7223-42-55 15:27:004.2[facility] HermannCHEM DDHDE5760-34-36 15:27:000.9[facility] HermannCHEM TZVFR6534-54-53 15:27:0054[facility] HermannCHEM BLQXF9084-70-07 15:27:000.6[facility] HermannCHEM CMVSO3802-86-91 15:27:009.2 [facility] HermannCHEM VWXEM0078-20-15 15:27:0027[facility] HermannCHEM PANEL 2017-03-03 15:27:0096[facility] HermannCHEM KKOGP3266-46-43 15:27:003.8[facility] HermannCHEM XLJGE3779-43-27 15:27:008.0[facility] HermannCHEM EABYF5035-66-44 15:27:0096[facility] HermannCHEM OKDWZ4355-10-23 15:27:009[facility] HermannCHEM XDZNQ8177-30-06 15:27:008[facility] HermannCHEM JEDZI3388-81-95 15:27:0016[facility] HermannCHEM RKYIL8328-65-33 15:27:65068Gxcjyjnd HermannCHEM HANCW0281-70-56 15:27:001.34[facility] HermannCHEM XMQJS6657-08-52 15:27:35129Uktbbkqc HermannCHEM RDMZA6286-04-99 15:27:004.0[facility] PppdftjMEQRNHZFRY5520-58-25 15:27:000.1 [facility] MonjypmGVIQWQOKTA5709-73-88 15:27:000.7[facility] HermannHEMATOLOGY 2017-03-03 15:27:002.7[facility] BclxbnlSQBIPDDLHI5760-26-69 15:27:000.7[facility] BalwvedUGRKLWLIYP3980-47-85 15:27:000.5[facility] YxidmekBEXECGDXVZ8380-33-68 15:27:006.9[facility] QmazqhgLZINBLHTBO3979-11-20 15:27:0028.5[facility] [place] PSNFTISYCG0383-02-86 15:27:006.0[facility] EcdhmboOYGYQAWCDM2121-33-10 15:27:00 63.4[facility] VmuypjtCUVDGUUKUZ1118-01-03 15:27:000.94[facility] HermannHEMATOLOGY 2017-03-03 15:27:00 Test Item Value Reference Range Interpretation Comments PT (test code = PT) 12.6 s 12.0-14.7 [facility] ZobryadTRLJOYDWOT6527-59-08 15:27:00 Test Item Value Reference Range Interpretation Comments PTT (test code = PTT) 31.8 s 22.9-35.8 [facility] OhqrtxcHRUPPHQISM8353-79-73 15:27:008.0[facility] HermannHEMATOLOGY 2017-03-03 15:27:60638Zscqacki FddztmfIIVZVYTVXC6162-24-46 15:27:0012.9[facility] YqolzzoRGCUTHQHAK4549-70-27 15:27:0033.4[facility] DasyiigLZYSBUCLDL4626-23-55 15:27:00 Test Item Value Reference Range Interpretation Comments MCH (test code = MCH) 33.0 pg 27.0-31.0 [facility] BrztiihUTEQRMWXRN0736-70-57 15:27:0098.8[facility] HermannHEMATOLOGY 2017-03-03 15:27:0036.1[facility] FmzezawVKLGYNTMNQ1604-65-59 15:27:0012.1[facility] WoipazuKUESNKVIGR0678-90-72 15:27:009.5[facility] PxqcjmsKIHVFKZMQI5699-95-91 15:27:003.66[facility] Alejandro
--- OUTSIDE RECORDS SUMMARY | 2019-10-17 11:27 | XMS REPORT | Summary of Care ---
:1945 Author Organization [facility] Address [address] [place] [address] Care Team Providers Name Role Phone Coreen Colbert PTA [employer] Unavailable Gemini Wilkins MD Primary Care Provider Reason for Referral Radiology Services (Routine) Status Reason Specialty Diagnoses / Referred By Referred To Procedures Contact Contact Closed Diagnostic Diagnoses Abdominal pain, unspecified abdominal location Claudette, Radiology Procedures US ABDOMEN COMPLETE Ramon Singletary MD [address] [place] [address] Reason for Visit Radiology Services (Routine) Status Reason Specialty Diagnoses / Referred By Referred To Procedures Contact Contact Closed Diagnostic Diagnoses Abdominal pain, unspecified abdominal location Claudette, Radiology Procedures US ABDOMEN COMPLETE Ramon Singletary MD [address] [place] [address] Encounter Details Date Type Department Care Team Description 10/10/2019 Hospital Encounter [facility] Ramon Wilkins MD [address] [place] [address] [place] [address] [facility] [phone] [place] [address] Allergies Not on Filedocumented as of this encounter (statuses as of 10/11/2019) Medications Not on filedocumented as of this encounter (statuses as of 10/11/2019) Active Problems Problem Noted Date Upper extremity weakness 03/21/2019 Decreased activities of daily living (ADL) 03/21/2019 documented as of this encounter (statuses as of 10/11/2019) Social History Tobacco Use Types Packs/Day Years Used Date Never Assessed Sex Assigned at Date Recorded Not on file Job Start Date Occupation Industry Not on file Not on file Not on file Travel History Travel Start Travel End No recent travel history available. documented as of this encounter Last Filed Vital Signs Not on filedocumented in this encounter Plan of Treatment Health Maintenance Due Date Last Done Comments HEPATITIS C (HCV) SCREEN 1945 DTaP,Tdap,and Td Vaccines (1 - Tdap) 1958 Depression Screening 1959 COLONOSCOPY 1997 Zoster Recombinant Vaccine (SHINGRIX) (1 of 2) 1997 Medicare Wellness Visit 2012 PNEUMOCOCCAL VACCINES 65+ (1 of 2 - PCV13) 2012 INFLUENZA VACCINE (Season Ended) 2019 documented as of this encounter Procedures Procedure Name Priority Date/Time Associated Diagnosis Comme nts US ABDOMEN COMPLETE Routine 10/10/2019 11:42 AM Abdominal pain , Results for this CDT unspecified procedure are i n abdominal location the resul ts section. documented in this encounter Results US ABDOMEN COMPLETE (10/10/2019 11:42 AM CDT) Specimen Narrative Performed At This result has an attachment that is no t available. HISTORY: Abdominal pain. PACS/VR/DOSE TECHNIQUE: Upper abdominal organs were evaluated in mu ltiple planes with the patient in multiple different positions, without a nd with color imaging. FINDINGS: Comparison has been made with CT scan of 11/19 and ultrasound study of 09/02/2017. Liver is 14.4 cm, spleen is 8.2 x 3.8 cm, right kidney is 9.3 x 4.3 x 4.6 cm and left kidney is 9.2 x 4.7 x 4.9 cm in size. Charlie ex of both kidneys range between 10 mm and 11 mm. Cysts noted in the left kidney, largest is 2.4 cm with focal calcifications and septations, consistent with Bosniak type II cystic lesion, unchanged. The remaining cysts in the left kidney are 12 mm and 9 mm, consistent with Bosniak type I cystic lesions. 10 mm cyst in the right kidney is also unchanged. No hydronephrosis, free fluid in the upper abdomen or aortic aneurysm detected. Visualized portions of the pancreas appear normal. Hepatic and portal venous system appear patent, with h epatopetal portal flow noted. Gallbladder appears to be moderately distended, consis tent with hydropic gallbladder, measuring approximately 11.3 x 4 cm with echogenic biliary sludge, biliary crystals and several very small gallst ones in the dependent portion of its lumen. Common hepatic duct is 3.2 mm. CONCLUSIONS: 1. Hydropic gallbladder with biliary sludge several ve ry small gallstones. No sonographic signs of acute cholecystitis. 2. Bilateral renal cysts. Mildly echogenic cortex of b oth kidneys, unchanged. No hydronephrosis. Procedure Note [facility], Radiant Results Inft User - 2019 11:53 AM CDT HISTORY: Abdominal pain. TECHNIQUE: Upper abdominal organs were e valuated in multiple planes with the patient in multiple different positi ons, without and with color imaging. FINDINGS: Comparison has been made with CT scan of 11/19/2017 and ultrasound study of 09/02/2017. Liver is 14.4 cm, spleen is 8.2 x 3.8 cm , right kidney is 9.3 x 4.3 x 4.6 cm and left kidney is 9.2 x 4.7 x 4.9 cm in size. Cortex of both kidneys range between 10 mm and 11 mm. Cysts noted in the left kidney, largest is 2.4 cm with focal calcifications and septations, consistent with Bosniak type II cystic lesion, unchanged. The remaining cysts in the left kidney a re 12 mm and 9 mm, consistent with Bosniak type I cystic lesions. 10 mm cys t in the right kidney is also unchanged. No hydronephrosis, free fluid in the upper abdomen or aortic aneurysm detected. Visualized portions o f the pancreas appear normal. Hepatic and portal venous system appear patent, with hepatopetal portal flow noted. Gallbladder appears to be moderately dis tended, consistent with hydropic gallbladder, measuring approximately 11. 3 x 4 cm with echogenic biliary sludge, biliary crystals and several constantin y small gallstones in the dependent portion of its lumen. Common hepatic juliocesar t is 3.2 mm. CONCLUSIONS: 1. Hydropic gallbladder with biliary slu dge several very small gallstones. No sonographic signs of acute cholecysti tis. 2. Bilateral renal cysts. Mildly echogen ic cortex of both kidneys, unchanged. No hydronephrosis. Performing Organization Address City/State/Zipcode Phone Number PACS/VR/DOSE documented in this encounter Visit Diagnoses Diagnosis Abdominal pain, unspecified abdominal lo cation documented in this encounter Insurance Payer Benefit Plan Subscriber ID Effective Phone Address Typ e / Group Dates AETNA - AETNA [id number] 2013-Haseeb Jung [employer] BOX Medic are Adv MANAGED MEDICARE ADV nt [id number] [place] [address] documented as of this encounter
--- OUTSIDE RECORDS SUMMARY | 2019-10-17 11:27 | XMS REPORT | Summary of Care ---
:1945 Author Organization [facility] Address [address] [place] [address] Care Team Providers Name Role Phone Coreen Colbert PTA Entry Level Electric[employer] Unavailable Gemini Wilkins MD Primary Care Provider Encounter Details Date Type Department Care Team Description 10/10/2019 Orders Only [facility] Doctor Unassigned, No [address] [facility] [place] [address] [address] [place] [address] Allergies Not on Filedocumented as of this encounter (statuses as of 10/10/2019) Medications Not on filedocumented as of this encounter (statuses as of 10/10/2019) Active Problems Problem Noted Date Upper extremity weakness 03/21/2019 Decreased activities of daily living (ADL) 03/21/2019 documented as of this encounter (statuses as of 10/10/2019) Social History Tobacco Use Types Packs/Day Years Used Date Never Assessed Sex Assigned at Date Recorded Not on file Job Start Date Occupation Industry Not on file Not on file Not on file Travel History Travel Start Travel End No recent travel history available. documented as of this encounter Last Filed Vital Signs Not on filedocumented in this encounter Plan of Treatment Date Type Specialty Care Team Description 10/10/2019 Appointment Radiology Ra estrada Wilkins MD [address] [place] [phone] Health Maintenance Due Date Last Done Comments [...] Name Priority Date/Time Associated Diagnosis Comme nts ASSIGNMENT OF BENEFITS Routine 10/10/2019 10:48 AM CDT documented in this encounter Results Not on filedocumented in this encounter Insurance Payer Benefit Plan Subscriber ID Effective Phone Address Typ e / Group Dates AETNA - AETNA [id number] 2013-Prese P [employer] BOX Medic are Adv MANAGED MEDICARE ADV nt [id number] [place] [address] documented as of this encounter
[2019-10-17] MEDS ORDERED: HYDROCODONE/APAP 7.5/325 MG TAB PO ONE (12:00)
[2019-10-17] MEDS ORDERED: HYDROCODONE/APAP 7.5/325 MG TAB ONE (12:05)
--- NOTE | 2019-10-17 12:34 | EKG ---
Test Date: 2019-10-17 Test Time: 08:33:34 Pastoral Worker: STARLA MEASUREMENT RESULTS: Intervals: Rate: 77 FL: 160 QRSD: 92 QT: 396 QTc: 448 [place]: P: 75 FL: 160 QRS: 72 T: 65 INTERPRETIVE STATEMENTS: Normal sinus rhythm Incomplete right bundle branch block Borderline ECG Compared to ECG 12/09/2017 15:25:29 Atrial premature complex(es) no longer present Electronically Signed On 10-17-19 12:33:05 CDT by Bonilla Patino
[2019-10-17 12:51] VITALS: BP 138/68; TEMP 98; O2SAT 98
--- NOTE | 2019-10-17 22:21 | OP ---
Date of Procedure: 10/17/2019 Surgeon: Oscar Welsh MD Health Data Analyst: HEMA Etienne Preoperative Diagnosis: Chronic cholecystitis and cholelithiasis. Postoperative Diagnosis: Chronic cholecystitis and cholelithiasis. Procedure Performed: Laparoscopic cholecystectomy. Estimated Blood Loss: Minimal. Specimen: Gallbladder. Findings: As above. Anesthesia: General. Complications: None. Disposition: Patient tolerated the procedure in stable condition, taken to Recovery in good general condition. Procedure In Detail: The patient was brought to the OR and placed in supine position. General anest hesia was begun. Patient was prepped and draped in usual sterile fashion. Marcaine 0.5% was infiltr ated locally. A 15-blade was used to make a 1 cm infraumbilical midline incision. Subcutaneous tiss ues divided. Fascia was identified and divided. #1 Vicryl stay suture was placed. Peritoneal cavit y was entered with sharp and blunt dissection. 12 mm trocar was placed into the peritoneal cavity un reyes direct vision. Pneumoperitoneum was established. Three 5 mm trocar was placed; 1 in the epigast rium just to the right of midline and 2 in the right subcostal region. Laparoscopy revealed distenti on of the gallbladder. Fundus retracted superiorly. Infundibulum was identified. Few adhesions wer e present, which were taken down with sharp and blunt dissection. Bleeding controlled with cautery. The cystic duct and cystic artery were clearly identified with blunt dissection. Clips placed. Bot h structures divided. Cautery was used to remove the gallbladder from the liver bed. Bleeding on th e liver bed controlled with cautery. The gallbladder was retrieved through the umbilicus via an Endo Catch bag. The right upper quadrant was irrigated. Effluent was clear. No evidence of bleeding or bowel injury appreciated. Subsequently, all trocars were removed under direct vision. Stay sutures were tied to each other to reapproximate the fascial defect. Subcutaneous wounds were irrigated, ble eding controlled with cautery. 3-0 chromic used to reapproximate subcutaneous tissue and rehana use d to close the skin. Sterile dressing was applied. Patient was awakened and taken to Recovery in go od general condition. Discharge Note: Patient will go to Day Surgery and home when stable. Disposition: Home. Condition: Stable. Discharge Instructions: Resume home medications and diet. Activity as tolerated. No heavy lifting. Remove outer dressing in 2 days. Shower. Keep wound clean and dry. Follow up in my office in a jonnathan boogiek. Call for appointment. Tylenol No. 3 one tablet p.o. q.4 p.r.n. pain. KYM/SAI Voice ID: [id number] Report ID: [id number]
== END 2019-10-17 13:00 | disposition home or self-care (01) ==
LOC: OR 08:06
PROVIDERS: ATTEND Surgery
PROC: 0FT44ZZ Resection of Gallbladder, Percutaneous Endoscopic Approach (ICD-10-PCS; principal; 2019-10-17 10:00)
DX: K80.10 Calculus of gallbladder with chronic cholecystitis without obstruction (principal); I10 Essential (primary) hypertension; Z11.59 Encounter for screening for other viral diseases; F17.200 Nicotine dependence, unspecified, uncomplicated; Z88.0 Allergy status to penicillin; Z88.6 Allergy status to analgesic agent; Z83.3 Family history of diabetes mellitus
CPT/HCPCS: 93005; 85025; 80048; 36415; 82150; 80076; 88304; 71046; 47562; U0002; J2704; J2550; J2370; J2250; J3010; J1100; J1170 ×2; J2710; J7120 ×2; J2405; J0744

== ENCOUNTER 2023-02-20 10:21 | Emergency (ER) | payer OTHER ==
--- OUTSIDE RECORDS SUMMARY | 2023-02-20 10:31 | XMS REPORT | Continuity of Care Document ---
:1945 Author Organization [facility] t Address [address] [place] [id number] Care Team Providers Name Role Phone Ramon Go MD Primary Care Physician [phone] TRINY SIMS Attending Clinician Unavailable JULISA FORTUNE Attending Clinician Unavailable TRINY SIMS Attending Clinician Unavailable Pob, Adc Lab Main Attending Clinician Unavailable Lise Rosario MD Attending Clinician LISE ROSARIO Attending Clinician Unavailable Doctor Unassigned, [place] Attending Clinician Unavailable RADIOLOGY Attending Clinician Unavailable AJIT COBB Attending Clinician Unavailable Josh Colbert PTA Attending Clinician Unavailable Ajit Cobb MD Attending Clinician Aileen Stevenson PT Attending Clinician Unavailable Marita Trevino PT Attending Clinician Unavailable Radiology Attending Clinician Unavailable Minor JAMES, Provider Not In Attending Clinician Unavailable Howard_Cortez Attending Clinician Unavailable PAOLA MADSEN Attending Clinician Unavailable Fidelina Du MD Attending Clinician Teodoro Cobos MD Attending Clinician [phone] Abi Holder MA Attending Clinician Unavailable Selene Scott MA Attending Clinician Unavailable Charafeddine MD, Nizar C Attending Clinician Only, Adc Test Attending Clinician Unavailable Annie Caldwell MD Attending Clinician ANNIE CALDWELL Attending Clinician Unavailable Liv Jones RN Attending Clinician Keith GUTIERREZ Becky S Attending Clinician Liam Posada MD Attending Clinician RAMON GO Attending Clinician Unavailable Ramon Go MD Attending Clinician JULISA FORTUNE Admitting Clinician Unavailable TRINY SIMS Admitting Clinician Unavailable Livier Admitting Clinician Unavailable FIDELINA DU Admitting Clinician Unavailable Julisa Fortune MD Admitting Clinician Liam Posada MD Admitting Clinician RAMON GO Admitting Clinician Unavailable Payers Payer Name Policy Type Policy Number Effective Date Expiration Date S kamala [employer] MEDICARE PPO [id number] 2013 00:00:00 [employer] MEDICARE ADV [id number] 2013 00:00:00 Problems Condition Condition Condition Status Onset Resolution Last Treating Co mments Source Name Details Category Date Date Treatment Clinician Date Low back Low back Disease Active 2020-04 Un[facility] pain pain 2-17 ity of 00:00: [address] Abnormal Abnormal Disease Active 2020-04 Unive rs gait gait 2-17 ity of 00:00: [address] Lower Lower Disease Active 2020-04 [facility] extremity extremity 2-17 ity of weakness weakness 00:00: [address] Generalize Generalize Disease Active 2020-04 U nivers d weakness d weakness 2-17 it y of 00:00: [address] Epigastric Epigastric Disease Active 2019-04 [facility] pain pain 0-27 st 00:00: [facility]osp[facility] 00 l History of History of Disease Active 2019-04 M ethodi cholecyste cholecyste 0-27 st ctomy ctomy 00:00: Hospita 00 l Acute Acute Disease Active 2019-04 [facility] gastritis gastritis 0-27 st without without 00:00: Hospita hemorrhage hemorrhage 00 l Colitis Colitis Disease Active 2020-0 [facility] 7-11 ity of 00:00: [place] 00 [facility] Upper Upper Disease Active 2018-04 [facility] extremity extremity 2-03 ity of weakness weakness 00:00: 00 Medical Branch Decreased Decreased Disease Active 2018-04 Uni vers activities activities 2-03 it y of of daily of daily 00:00: [place] [facility] 00 Medical (ADL) (ADL) Branch Allergies, Adverse Reactions, Alerts Allergy Allergy Status Severity Reaction(s) Onset Inactive Treating Comm ents Source Name Type Date Date Clinician Penicill Propensi Active Hives 2019-04 Method i ins ty to 04-23 st adverse 00:00: Hospita reaction 00 l s to drug Penicill Propensi Active Hives 2019-04 [facility] i ins ty to 04-23 st adverse 00:00: Hospita reaction 00 l s to drug Penicill Propensi Active Hives 2019-0 Univer s in ty to 10-27 ity of adverse 00:00: [place] reaction 00 Medical s Branch PENICILL DRUG Active Hives 2019-0 Univers IN INGREDI 10-27 ity of 00:00: [place] 00 [facility] Branch Penicill Propensi Active Hives 2019-0 Univer s in ty to 10-27 ity of adverse 00:00: [place] reaction 00 Medical s Branch NO KNOWN Drug Active Univers ALLERGIE Class ity of [facility] Social History Social Habit Start Date Stop Date Quantity Comments Source History SDOH University o f Alcohol Frequency [facility] edical Branch History SDOH University o f Alcohol Std Drinks [facility] History SDOH University o f Alcohol Binge [place] [facility] Exposure to Not sure University of SARS-CoV-2 (event) [facility] Gender identity [facility] History of tobacco Cigar Smoker Meth odist use Hospital Sexual orientation [facility] Alcohol intake 2020-02-23 2020-02-23 Current drinker of [facility] 00:00:00 00:00:00 alcohol (finding) Hospita l History of Social 2020-02-23 2020-02-[address] function 00:00:00 00:00:00 Hospital Tobacco use and 2020-02-22 2020-02-22 Smokeless tobacco [facility] exposure 00:00:00 00:00:00 non-user Hospital Cigarettes smoked 2019-10-28 2019-10-28 Univers ity of current (pack per 00:00:00 00:00:00 [facility] ed) - Reported Branch Tobacco Comment 2019-10-28 2019-10-28 someks cigar Univers ity of 00:00:00 00:00:00 [facility] Alcohol Comment 2019-10-28 2019-10-28 occassionally Univer sity of 00:00:00 00:00:00 [facility] Sex [birth year] Mandaeism 00:00:00 00:00:00 Hospital Smoking Status Start Date Stop Date Source Tobacco smoking consumption unknown [facility] Smokes tobacco daily 2020-02-22 00:00:00 [facility] Medications Ordered Filled Start Stop Current Ordering Indication Dosage Frequency Signature Comments Components Source Medication Medication Date Date Medication? Clinician (SIG) Name Name pantoprazol 2019-04 Yes 40mg QD Take 40 mg [facility] e 1-[address] (PROTONIX) 09:04: daily. Hospi ta 40 MG EC 05 l tablet losartan 2019-04 Yes 100mg QD Take 100 Meth [place] (COZAAR) 1-[address] 100 MG 09:04: mouth Hospita tablet 05 daily. l NIFEdipine 2019-04 Yes 60mg QD Take 60 mg M ethodi XL 1-[address] (PROCARDIA 09:04: daily. Hospi ta XL) 60 MG 05 l 24 hr tablet HYDROcodone 2019-04 Yes [id number] 1{tbl} Q6H Take 1 M ethodi -acetaminop 1-[address] hen (NORCO) 09:04: mouth Hospi ta 10-325 mg 05 every 6 l per tablet (six) hours as needed for moderate pain .acute pain. rOPINIRole 2019-04 Yes 1mg Q.[id number] Take 1 mg [facility] (REQUIP) 1 1-07 [id number] mouth [address] MG tablet 09:04: 3D (three) Hospi ta 05 times a l day. cyproheptad 2019-04 Yes 4mg Q.[id number] Take 4 mg [facility] ine 1-07 [id number] [facility] [address] (PERIACTIN) 09:04: 3D (three) Hos lito 4 mg tablet 05 times a l day as needed for allergies. pantoprazol 2019-04 Yes 40mg QD Take 40 mg [facility] e 1-[address] (PROTONIX) 03:04: daily. Hospi ta 40 MG EC 05 l tablet losartan 2019-04 Yes 100mg QD Take 100 Meth [place] (COZAAR) 1-[address] 100 MG 03:04: mouth Hospita tablet 05 daily. l NIFEdipine 2019-04 Yes 60mg QD Take 60 mg M ethodi XL 1-[address] (PROCARDIA 03:04: daily. Hospi ta XL) 60 MG 05 l 24 hr tablet HYDROcodone 2019-04 Yes [id number] 1{tbl} Q6H Take 1 M ethodi -acetaminop 1-[address] hen (DENIO) 03:04: mouth Hospi ta 10-325 mg 05 every 6 l per tablet (six) hours as needed for moderate pain .acute pain. rOPINIRole 2019-04 Yes 1mg Q.[id number] Take 1 mg [facility] (REQUIP) 1 1-07 [id number] [address] mouth [address] MG tablet 03:04: 3D (three) Hospi ta 05 times a l day. cyproheptad 2019-04 Yes 4mg Q.[id number] Take 4 mg [facility] ine 1-[id number] [facility] [address] (PERIACTIN) 03:04: 3D (three) Hos lito 4 mg tablet 05 times a l day as needed for allergies. pantoprazol 2019-04 Yes 40mg QD Take 40 mg [facility] e 1-[address] (PROTONIX) 03:04: daily. Hospi ta 40 MG EC 05 l tablet losartan 2019-04 Yes 100mg QD Take 100 Meth [place] (COZAAR) 1-[address] 100 MG 03:04: mouth Hospita tablet 05 daily. l NIFEdipine 2019-04 Yes 60mg QD Take 60 mg M ethodi XL 1-[address] (PROCARDIA 03:04: daily. Hospi ta XL) 60 MG 05 l 24 hr tablet HYDROcodone 2019- Yes [id number] 1{tbl} Q6H Take 1 M ethodi -acetaminop 1-[address] hen (DENIO) 03:04: mouth Hospi ta 10-325 mg 05 every 6 l per tablet (six) hours as needed for moderate pain .acute pain. rOPINIRole 2019- Yes 1mg Q.[id number] Take 1 mg [facility] (REQUIP) 1 1-07 [id number] MG tablet 03:04: 3D (three) Hospi ta 05 times a l day. cyproheptad 2019-04 Yes 4mg Q.[id number] Take 4 mg [facility] ine 1-[id number] (PERIACTIN) 03:04: 3D (three) Hos lito 4 mg tablet 05 times a l day as needed for allergies. NIFEDIPINE 2019-04 Yes Take by [facility] ers ORAL 0-07 mouth. ity of 16:45: [place] [address] Medical Branch pantoprazol 2019-04 Yes Take by Uni vers e sodium 0-07 mouth. ity of (PANTOPRAZO 16:45: [place] LE ORAL) Medical Branch rOPINIRole 2019-04 Yes .5mg Take 0.5 Uni vers 0.5 mg 0-07 mg by ity of tablet 16:45: mouth at [place] [address] bedtime. Medical Branch HYDROcodone 2019-04 Yes 1{tbl} Take 1 Un carmelo -acetaminop 0-07 tablet by ity of hen 10-325 16:45: mouth [place] mg tablet 52 every 6 Medical (six) Branch hours as needed for Pain (scale 4-6). losartan 25 2019-04 Yes 25mg Take 25 mg Univers mg tablet 0-07 by mouth ity of 16:45: daily. [place] [address] Patient is Medical not sure Branch on dosage of medication NIFEDIPINE 2019-04 Yes Take by [facility] ers ORAL 0-07 mouth. ity of 16:45: [place] [address] Medical Branch pantoprazol 2019-04 Yes Take by Uni vers e sodium 0-07 mouth. ity of (PANTOPRAZO 16:45: [place] LE ORAL) Medical Branch rOPINIRole 2019-04 Yes .5mg Take 0.5 Uni vers 0.5 mg 0-07 mg by ity of tablet 16:45: mouth at [place] [address] bedtime. Medical Branch HYDROcodone 2019-04 Yes 1{tbl} Take 1 Un carmelo -acetaminop 0-07 tablet by ity of hen 10-325 16:45: mouth [place] mg tablet 52 every 6 Medical (six) Branch hours as needed for Pain (scale 4-6). losartan 25 2019-04 Yes 25mg Take 25 mg Univers mg tablet 0-07 by mouth ity of 16:45: daily. [place] [address] Patient is Medical not sure Branch on dosage of medication NIFEDIPINE 2019-04 Yes Take by Univ ers ORAL 0-07 mouth. ity of 16:45: [place] [address] Medical Branch pantoprazol 2019-04 Yes Take by Uni vers e sodium 0-07 mouth. ity of (PANTOPRAZO 16:45: [place] LE ORAL) Medical Branch rOPINIRole 2019-04 Yes .5mg Take 0.5 Uni vers 0.5 mg 0-07 mg by ity of tablet 16:45: mouth at [place] [address] bedtime. Medical Branch HYDROcodone 2019-04 Yes 1{tbl} Take 1 Un carmelo -acetaminop 0-07 tablet by ity of hen 10-325 16:45: mouth [place] mg tablet 52 every 6 Medical (six) Branch hours as needed for Pain (scale 4-6). losartan 25 2019-04 Yes 25mg Take 25 mg Univers mg tablet 0-07 by mouth ity of 16:45: daily. [place] [address] Patient is Medical not sure Branch on dosage of medication NIFEDIPINE 2019-04 Yes Take by Univ ers ORAL 0-07 mouth. ity of 16:45: [place] [address] Medical Branch pantoprazol 2019-04 Yes Take by Uni vers e sodium 0-07 mouth. ity of (PANTOPRAZO 16:45: [place] LE ORAL) Medical Branch rOPINIRole 2019-04 Yes .5mg Take 0.5 Uni vers 0.5 mg 0-07 mg by ity of tablet 16:45: mouth at [place] [address] bedtime. Medical Branch HYDROcodone 2019-04 Yes 1{tbl} Take 1 Un carmelo -acetaminop 0-07 tablet by ity of hen 10-325 16:45: mouth [place] mg tablet 52 every 6 Medical (six) Branch hours as needed for Pain (scale 4-6). losartan 25 2019-04 Yes 25mg Take 25 mg Univers mg tablet 0-07 by mouth ity of 16:45: daily. [place] [address] Patient is Medical not sure Branch on dosage of medication NIFEDIPINE 2019-04 Yes Take by Univ ers ORAL 0-07 mouth. ity of 16:45: [place] [address] Medical Branch pantoprazol 2019-04 Yes Take by Uni vers e sodium 0-07 mouth. ity of (PANTOPRAZO 16:45: [place] LE ORAL) Medical Branch rOPINIRole 2019-04 Yes .5mg Take 0.5 Uni vers 0.5 mg 0-07 mg by ity of tablet 16:45: mouth at [place] [address] bedtime. Medical Branch HYDROcodone 2019-04 Yes 1{tbl} Take 1 Un carmelo -acetaminop 0-07 tablet by ity of hen 10-325 16:45: mouth [place] mg tablet 52 every 6 Medical (six) Branch hours as needed for Pain (scale 4-6). losartan 25 2019-04 Yes 25mg Take 25 mg Univers mg tablet 0-07 by mouth ity of 16:45: daily. [place] [address] Patient is Medical not sure Branch on dosage of medication NIFEDIPINE 2019-04 Yes Take by Uni vers ORAL 0-07 mouth. ity of 16:45: [place] [address] Medical Branch pantoprazol 2019-04 Yes Take by Uni vers e sodium 0-07 mouth. ity of (PANTOPRAZO 16:45: [facility] ORAL) Medical Branch rOPINIRole 2019-04 Yes .5mg Take 0.5 Uni vers 0.5 mg 0-07 mg by ity of tablet 16:45: mouth at [place] [address] bedtime. Medical Branch HYDROcodone 2019-04 Yes 1{tbl} Take 1 Un carmelo -acetaminop 0-07 tablet by ity of hen 10-325 16:45: mouth [place] mg tablet 52 every 6 Medical (six) Branch hours as needed for Pain (scale 4-6). losartan 25 2019-04 Yes 25mg Take 25 mg Univers mg tablet 0-07 by mouth ity of 16:45: daily. [place] [address] Patient is Medical not sure Branch on dosage of medication water for 2019-04 Yes PRN, Univers irrigation 0-07 Starting ity o f irrigation 15:50: Wed [place] solution 00 01/24/20 at Medic al 1050, Branch Until Discontinu ed, Routine, Intra-op simethicone 2019-04 Yes PRN, Univer s (GAS RELIEF 0-07 Starting ity of (SIMETHICON 15:50: Wed [place] E)) 40 00 01/24/20 at Medical mg/0.6 mL 1050, Branch drops Until Discontinu ed, Routine, Intra-op lactated 2019-04 2020- No 1000mL at 42 Unive rs ringers IV 0-07 10-07 mL/hr, ity of infusion 14:00: 13:58 1,000 mL, Jai as 1,000 mL 00 :00 IV Medical Infusion, Branch ONCE, 1 dose, 10/7/20 at 0900, Routine, DSU Pre-op NIFEDIPINE 2019- Yes Take by Univ ers ORAL 0-07 mouth. ity of 11:45: [place] [address] Medical Branch pantoprazol 2019-04 Yes Take by Uni vers e sodium 0-07 mouth. ity of (PANTOPRAZO 11:45: [place] LE ORAL) Medical Branch rOPINIRole 2019-04 Yes .5mg Take 0.5 Uni vers 0.5 mg 0-07 mg by ity of tablet 11:45: mouth at [place] [address] bedtime. Medical Branch HYDROcodone 2019-04 Yes 1{tbl} Take 1 Un carmelo -acetaminop 0-07 tablet by ity of hen 10-325 11:45: mouth [place] mg tablet 52 every 6 Medical (six) Branch hours as needed for Pain (scale 4-6). losartan 25 2019-04 Yes 25mg Take 25 mg Univers mg tablet 0-07 by mouth ity of 11:45: daily. [place] [address] Patient is Medical not sure Branch on dosage of medication NIFEDIPINE 2019-04 Yes Take by Univ ers ORAL 0-07 mouth. ity of 11:45: [place] [address] Medical Branch pantoprazol 2019-04 Yes Take by Uni vers e sodium 0-07 mouth. ity of (PANTOPRAZO 11:45: [place] LE ORAL) Medical Branch rOPINIRole 2019-04 Yes .5mg Take 0.5 Uni vers 0.5 mg 0-07 mg by ity of tablet 11:45: mouth at [place] [address] bedtime. Medical Branch HYDROcodone 2019-04 Yes 1{tbl} Take 1 Un carmelo -acetaminop 0-07 tablet by ity of hen 10-325 11:45: mouth [place] mg tablet 52 every 6 Medical (six) Branch hours as needed for Pain (scale 4-6). losartan 25 2019-04 Yes 25mg Take 25 mg Univers mg tablet 0-07 by mouth ity of 11:45: daily. [place] [address] Patient is Medical not sure Branch on dosage of medication NIFEDIPINE 2019-04 Yes Take by Univ ers ORAL 0-07 mouth. ity of 11:45: [place] [address] Medical Branch pantoprazol 2019-04 Yes Take by Uni vers e sodium 0-07 mouth. ity of (PANTOPRAZO 11:45: [place] LE ORAL) Medical Branch rOPINIRole 2019-04 Yes .5mg Take 0.5 Uni vers 0.5 mg 0-07 mg by ity of tablet 11:45: mouth at [place] [address] bedtime. Medical Branch HYDROcodone 2019-04 Yes 1{tbl} Take 1 Un carmelo -acetaminop 0-07 tablet by ity of hen 10-325 11:45: mouth [place] mg tablet 52 every 6 Medical (six) Branch hours as needed for Pain (scale 4-6). losartan 25 2019-04 Yes 25mg Take 25 mg Univers mg tablet 0-07 by mouth ity of 11:45: daily. [place] [address] Patient is Medical not sure Branch on dosage of medication NIFEDIPINE 2019-04 Yes Take by Univ ers ORAL 0-07 mouth. ity of 11:45: [place] [address] Medical Branch pantoprazol 2019-04 Yes Take by Uni vers e sodium 0-07 mouth. ity of (PANTOPRAZO 11:45: [place] LE ORAL) Medical Branch rOPINIRole 2019-04 Yes .5mg Take 0.5 Uni vers 0.5 mg 0-07 mg by ity of tablet 11:45: mouth at [place] [address] bedtime. Medical Branch HYDROcodone 2019-04 Yes 1{tbl} Take 1 Un carmelo -acetaminop 0-07 tablet by ity of hen 10-325 11:45: mouth [place] mg tablet 52 every 6 Medical (six) Branch hours as needed for Pain (scale 4-6). losartan 25 2019-04 Yes 25mg Take 25 mg Univers mg tablet 0-07 by mouth ity of 11:45: daily. [place] [address] Patient is Medical not sure Branch on dosage of medication NIFEDIPINE 2019-04 Yes Take by Univ ers ORAL 0-07 mouth. ity of 11:45: [place] [address] Medical Branch pantoprazol 2019-04 Yes Take by Uni vers e sodium 0-07 mouth. ity of (PANTOPRAZO 11:45: [place] LE ORAL) Medical Branch rOPINIRole 2019-04 Yes .5mg Take 0.5 Uni vers 0.5 mg 0-07 mg by ity of tablet 11:45: mouth at [place] [address] bedtime. Medical Branch HYDROcodone 2019-04 Yes 1{tbl} Take 1 Un carmelo -acetaminop 0-07 tablet by ity of hen 10-325 11:45: mouth [place] mg tablet 52 every 6 Medical (six) Branch hours as needed for Pain (scale 4-6). losartan 25 2019-04 Yes 25mg Take 25 mg Univers mg tablet 0-07 by mouth ity of 11:45: daily. [place] [address] Patient is Medical not sure Branch on dosage of medication NIFEDIPINE 2019-04 Yes Take by Univ ers ORAL 0-07 mouth. ity of 11:45: [place] [address] Medical Branch pantoprazol 2019-04 Yes Take by Uni vers e sodium 0-07 mouth. ity of (PANTOPRAZO 11:45: [place] LE ORAL) Medical Branch rOPINIRole 2019-04 Yes .5mg Take 0.5 Uni vers 0.5 mg 0-07 mg by ity of tablet 11:45: mouth at [place] [address] bedtime. Medical Branch HYDROcodone 2019-04 Yes 1{tbl} Take 1 Un carmelo -acetaminop 0-07 tablet by ity of hen 10-325 11:45: mouth [place] mg tablet 52 every 6 Medical (six) Branch hours as needed for Pain (scale 4-6). losartan 25 2019-04 Yes 25mg Take 25 mg Univers mg tablet 0-07 by mouth ity of 11:45: daily. [place] [address] Patient is Medical not sure Branch on dosage of medication NIFEDIPINE 2019-04 Yes Take by Univ ers ORAL 0-07 mouth. ity of 11:45: [place] [address] Medical Branch pantoprazol 2019-04 Yes Take by Uni vers e sodium 0-07 mouth. ity of (PANTOPRAZO 11:45: [place] LE ORAL) Medical Branch rOPINIRole 2019-04 Yes .5mg Take 0.5 Uni vers 0.5 mg 0-07 mg by ity of tablet 11:45: mouth at [place] [address] bedtime. Medical Branch HYDROcodone 2019-04 Yes 1{tbl} Take 1 Un carmelo -acetaminop 0-07 tablet by ity of hen 10-325 11:45: mouth [place] mg tablet 52 every 6 Medical (six) Branch hours as needed for Pain (scale 4-6). losartan 25 2019-04 Yes 25mg Take 25 mg Univers mg tablet 0-07 by mouth ity of 11:45: daily. [place] [address] Patient is Medical not sure Branch on dosage of medication NIFEDIPINE 2019-04 Yes Take by Univ ers ORAL 0-07 mouth. ity of 11:45: [place] [address] Medical Branch pantoprazol 2019-04 Yes Take by Uni vers e sodium 0-07 mouth. ity of (PANTOPRAZO 11:45: [place] LE ORAL) Medical Branch rOPINIRole 2019-04 Yes .5mg Take 0.5 Uni vers 0.5 mg 0-07 mg by ity of tablet 11:45: mouth at [place] [address] bedtime. Medical Branch HYDROcodone 2019-04 Yes 1{tbl} Take 1 Un carmelo -acetaminop 0-07 tablet by ity of hen 10-325 11:45: mouth [place] mg tablet 52 every 6 Medical (six) Branch hours as needed for Pain (scale 4-6). losartan 25 2019-04 Yes 25mg Take 25 mg Univers mg tablet 0-07 by mouth ity of 11:45: daily. [place] [address] Patient is Medical not sure Branch on dosage of medication NIFEDIPINE 2019-04 Yes Take by Univ ers ORAL 0-07 mouth. ity of 11:45: [place] [address] Medical Branch pantoprazol 2019-04 Yes Take by Uni vers e sodium 0-07 mouth. ity of (PANTOPRAZO 11:45: [place] LE ORAL) Medical Branch rOPINIRole 2019-04 Yes .5mg Take 0.5 Uni vers 0.5 mg 0-07 mg by ity of tablet 11:45: mouth at [place] [address] bedtime. Medical Branch HYDROcodone 2019-04 Yes 1{tbl} Take 1 Un carmelo -acetaminop 0-07 tablet by ity of hen 10-325 11:45: mouth [place] mg tablet 52 every 6 Medical (six) Branch hours as needed for Pain (scale 4-6). losartan 25 2019-04 Yes 25mg Take 25 mg Univers mg tablet 0-07 by mouth ity of 11:45: daily. [place] [address] Patient is Medical not sure Branch on dosage of medication NIFEDIPINE 2019-04 Yes Take by Univ ers ORAL 0-07 mouth. ity of 11:45: [place] [address] Medical Branch pantoprazol 2019-04 Yes Take by Uni vers e sodium 0-07 mouth. ity of (PANTOPRAZO 11:45: [place] LE ORAL) Medical Branch rOPINIRole 2019-04 Yes .5mg Take 0.5 Uni vers 0.5 mg 0-07 mg by ity of tablet 11:45: mouth at [place] [address] bedtime. Medical Branch HYDROcodone 2019-04 Yes 1{tbl} Take 1 Un carmelo -acetaminop 0-07 tablet by ity of hen 10-325 11:45: mouth [place] mg tablet 52 every 6 Medical (six) Branch hours as needed for Pain (scale 4-6). losartan 25 2019-04 Yes 25mg Take 25 mg Univers mg tablet 0-07 by mouth ity of 11:45: daily. [place] [address] Patient is Medical not sure Branch on dosage of medication NIFEDIPINE 2019-04 Yes Take by Univ ers ORAL 0-07 mouth. ity of 11:45: [place] [address] Medical Branch pantoprazol 2019-04 Yes Take by Uni vers e sodium 0-07 mouth. ity of (PANTOPRAZO 11:45: [place] LE ORAL) Medical Branch rOPINIRole 2019-04 Yes .5mg Take 0.5 Uni vers 0.5 mg 0-07 mg by ity of tablet 11:45: mouth at [place] [address] bedtime. Medical Branch HYDROcodone 2019-04 Yes 1{tbl} Take 1 Un carmelo -acetaminop 0-07 tablet by ity of hen 10-325 11:45: mouth [place] mg tablet 52 every 6 Medical (six) Branch hours as needed for Pain (scale 4-6). losartan 25 2019-04 Yes 25mg Take 25 mg Univers mg tablet 0-07 by mouth ity of 11:45: daily. [place] [address] Patient is Medical not sure Branch on dosage of medication NIFEDIPINE 2019-04 Yes Take by Univ ers ORAL 0-07 mouth. ity of 11:45: [place] [address] Medical Branch pantoprazol 2019-04 Yes Take by Uni vers e sodium 0-07 mouth. ity of (PANTOPRAZO 11:45: [place] LE ORAL) Medical Branch rOPINIRole 2019-04 Yes .5mg Take 0.5 Uni vers 0.5 mg 0-07 mg by ity of tablet 11:45: mouth at [place] [address] bedtime. Medical Branch HYDROcodone 2019-04 Yes 1{tbl} Take 1 Un carmelo -acetaminop 0-07 tablet by ity of hen 10-325 11:45: mouth [place] mg tablet 52 every 6 Medical (six) Branch hours as needed for Pain (scale 4-6). losartan 25 2019-04 Yes 25mg Take 25 mg Univers mg tablet 0-07 by mouth ity of 11:45: daily. [place] [address] Patient is Medical not sure Branch on dosage of medication NIFEDIPINE 2019-04 Yes Take by Univ ers ORAL 0-07 mouth. ity of 11:45: [place] [address] Medical Branch pantoprazol 2019-04 Yes Take by Uni vers e sodium 0-07 mouth. ity of (PANTOPRAZO 11:45: [place] LE ORAL) Medical Branch rOPINIRole 2019-04 Yes .5mg Take 0.5 Uni vers 0.5 mg 0-07 mg by ity of tablet 11:45: mouth at [place] [address] bedtime. Medical Branch HYDROcodone 2019-04 Yes 1{tbl} Take 1 Un carmelo -acetaminop 0-07 tablet by ity of hen 10-325 11:45: mouth [place] mg tablet 52 every 6 Medical (six) Branch hours as needed for Pain (scale 4-6). losartan 25 2019-04 Yes 25mg Take 25 mg Univers mg tablet 0-07 by mouth ity of 11:45: daily. [place] [address] Patient is Medical not sure Branch on dosage of medication NIFEDIPINE 2019-04 Yes Take by Univ ers ORAL 0-07 mouth. ity of 11:45: [place] [address] Medical Branch pantoprazol 2019-04 Yes Take by Uni vers e sodium 0-07 mouth. ity of (PANTOPRAZO 11:45: [place] LE ORAL) Medical Branch rOPINIRole 2019-04 Yes .5mg Take 0.5 Uni vers 0.5 mg 0-07 mg by ity of tablet 11:45: mouth at [place] [address] bedtime. Medical Branch HYDROcodone 2019-04 Yes 1{tbl} Take 1 Un carmelo -acetaminop 0-07 tablet by ity of hen 10-325 11:45: mouth [place] mg tablet 52 every 6 Medical (six) Branch hours as needed for Pain (scale 4-6). losartan 25 2019-04 Yes 25mg Take 25 mg Univers mg tablet 0-07 by mouth ity of 11:45: daily. [place] [address] Patient is Medical not sure Branch on dosage of medication NIFEDIPINE 2019-04 Yes Take by Univ ers ORAL 0-07 mouth. ity of 11:45: [place] [address] Medical Branch pantoprazol 2019-04 Yes Take by Uni vers e sodium 0-07 mouth. ity of (PANTOPRAZO 11:45: [place] LE ORAL) Medical Branch rOPINIRole 2019-04 Yes .5mg Take 0.5 Uni vers 0.5 mg 0-07 mg by ity of tablet 11:45: mouth at [place] [address] bedtime. Medical Branch HYDROcodone 2019-04 Yes 1{tbl} Take 1 Un acrmelo -acetaminop 0-07 tablet by ity of hen 10-325 11:45: mouth [place] mg tablet 52 every 6 Medical (six) Branch hours as needed for Pain (scale 4-6). losartan 25 2019-04 Yes 25mg Take 25 mg Univers mg tablet 0-07 by mouth ity of 11:45: daily. [place] [address] Patient is Medical not sure Branch on dosage of medication NIFEDIPINE 2019-04 Yes Take by Univ ers ORAL 0-07 mouth. ity of 11:45: [place] [address] Medical Branch pantoprazol 2019-04 Yes Take by Uni vers e sodium 0-07 mouth. ity of (PANTOPRAZO 11:45: [place] LE ORAL) Medical Branch rOPINIRole 2019-04 Yes .5mg Take 0.5 Uni vers 0.5 mg 0-07 mg by ity of tablet 11:45: mouth at [place] [address] bedtime. Medical Branch HYDROcodone 2019-04 Yes 1{tbl} Take 1 Un carmelo -acetaminop 0-07 tablet by ity of hen 10-325 11:45: mouth [place] mg tablet 52 every 6 Medical (six) Branch hours as needed for Pain (scale 4-6). losartan 25 2019-04 Yes 25mg Take 25 mg [facility] mg tablet 0-07 by mouth ity of 11:45: daily. [place] [address] Patient is Medical not sure Branch on dosage of medication NIFEDIPINE 2019-04 Yes Take by Univ ers ORAL 0-07 mouth. ity of 11:45: [place] [address] Medical Branch pantoprazol 2019-04 Yes Take by Uni vers e sodium 0-07 mouth. ity of (PANTOPRAZO 11:45: [place] LE ORAL) Medical Branch rOPINIRole 2019-04 Yes .5mg Take 0.5 Uni vers 0.5 mg 0-07 mg by ity of tablet 11:45: mouth at [place] [address] bedtime. Medical Branch HYDROcodone 2019-04 Yes 1{tbl} Take 1 Un carmelo -acetaminop 0-07 tablet by ity of hen 10-325 11:45: mouth [place] mg tablet 52 every 6 Medical (six) Branch hours as needed for Pain (scale 4-6). losartan 25 2019-04 Yes 25mg Take 25 mg [facility] mg tablet 0-07 by mouth ity of 11:45: daily. [place] [address] Patient is Medical not sure Branch on dosage of medication NIFEDIPINE 2019-04 Yes Take by Univ ers ORAL 0-05 mouth. ity of 15:43: [place] 05 Medical Branch pantoprazol 2020-1 Yes Take by Uni vers e sodium 0-05 mouth. ity of (PANTOPRAZO 15:43: [place] LE ORAL) 05 Medical Branch rOPINIRole 2020-1 Yes .5mg Take 0.5 Uni vers 0.5 mg 0-05 mg by ity of tablet 15:43: mouth at [place] [address] bedtime. Medical Branch HYDROcodone 2020-1 Yes 1{tbl} Take 1 Un carmelo -acetaminop 0-05 tablet by ity of hen 10-325 15:43: mouth [place] mg tablet 05 every 6 Medical (six) Branch hours as needed for Pain (scale 4-6). losartan 25 2019-1 Yes 25mg Take 25 mg [facility] mg tablet 0-05 by mouth ity of 15:43: daily. [place] [address] Patient is Medical not sure Branch on dosage of medication NIFEDIPINE 2020-0 Yes Take by Univ ers ORAL 9-24 mouth. ity of 14:22: [place] [address] Medical Branch pantoprazol 2020-0 Yes Take by Uni vers e sodium 9-24 mouth. ity of (PANTOPRAZO 14:22: [place] LE ORAL) 35 Medical Branch rOPINIRole 2020-0 Yes .5mg Take 0.5 Uni vers 0.5 mg 9-24 mg by ity of tablet 14:22: mouth at [place] [address] bedtime. Medical Branch HYDROcodone 2020-0 Yes 1{tbl} Take 1 Un carmelo -acetaminop 9-24 tablet by ity of hen 10-325 14:22: mouth [place] mg tablet 35 every 6 Medical (six) Branch hours as needed for Pain (scale 4-6). losartan 25 2020-0 Yes 25mg Take 25 mg [facility] mg tablet 9-24 by mouth ity of 14:22: daily. [place] [address] Patient is Medical not sure Branch on dosage of medication NIFEDIPINE 2020-0 Yes Take by Univ ers ORAL 9-24 mouth. ity of 14:22: [place] [address] Medical Branch pantoprazol 2020-0 Yes Take by Uni vers e sodium 9-24 mouth. ity of (PANTOPRAZO 14:22: [place] LE ORAL) Medical Branch rOPINIRole 2020-0 Yes .5mg Take 0.5 Uni vers 0.5 mg 9-24 mg by ity of tablet 14:22: mouth at [place] [address] bedtime. Medical Branch HYDROcodone 2020-0 Yes 1{tbl} Take 1 Un carmelo -acetaminop -24 tablet by ity of hen 10-325 14:22: mouth [place] mg tablet 35 every 6 Medical (six) Branch hours as needed for Pain (scale 4-6). losartan 25 2020-0 Yes 25mg Take 25 mg Univers mg tablet 24 by mouth ity of 14:22: daily. [place] [address] Patient is Medical not sure Branch on dosage of medication lactated 0 2020- No 1000mL at 20 Unive rs ringers IV 01-10 09-24 mL/hr, ity of infusion 12:15: 12:23 1,000 mL, Jai as 1,000 mL 00 :00 IV Medical Infusion, Branch ONCE, 1 dose, Kristi 01/11/20 at 0715, Routine, DSU Pre-op water for 2019-0 Yes PRN, Univers irrigation 01-10 Starting ity o f irrigation 12:05: Kristi [place] solution 00 01/11/20 at Medic al 0705, Branch Until Discontinu ed, Routine, Intra-op simethicone 2020-0 Yes PRN, [facility] s (GAS RELIEF 01-10 Starting ity of (SIMETHICON 12:04: Kristi [place] E)) 40 00 01/11/20 at Medical mg/0.6 mL 0704, Branch drops Until Discontinu ed, Routine, Intra-op NIFEDIPINE 2019-0 Yes Take by [facility] ers ORAL 01-08 mouth. ity of 20:01: [place] [address] Medical Branch pantoprazol 2020-0 Yes Take by Uni vers e sodium - mouth. ity of (PANTOPRAZO 20:01: [place] LE ORAL) 46 Medical Branch rOPINIRole 2020-0 Yes .5mg Take 0.5 Uni vers 0.5 mg -22 mg by ity of tablet 20:01: mouth at [place] [address] bedtime. Medical Branch HYDROcodone 2020-0 Yes 1{tbl} Take 1 Un carmelo -acetaminop 9-22 tablet by ity of hen 10-325 20:01: mouth [place] mg tablet 46 every 6 Medical (six) Branch hours as needed for Pain (scale 4-6). NIFEDIPINE 2020-0 Yes Take by [facility] ers ORAL - mouth. ity of 20:01: [place] [address] Medical Branch pantoprazol 2020-0 Yes Take by Uni vers e sodium - mouth. ity of (PANTOPRAZO 20:01: [place] LE ORAL) 46 Medical Branch rOPINIRole 2020-0 Yes .5mg Take 0.5 Uni vers 0.5 mg 9-22 mg by ity of tablet 20:01: mouth at [place] 46 bedtime. Medical Branch HYDROcodone 2020-0 Yes 1{tbl} Take 1 Un carmelo -acetaminop 9-22 tablet by ity of hen 10-325 20:01: mouth [place] mg tablet 46 every 6 Medical (six) Branch hours as needed for Pain (scale 4-6). levoFLOXaci 2020-0 2020- No 750mg 750 mg, IV Univers n in D5W 10-29 07-14 Piggyback, ity of (LEVAQUIN) 21:00: 20:59 Q24H ABX, [place] 750 mg/150 00 :00 1 dose, Medica l mL First dose Branch Piggyback on Mon 750 mg 10/30/19 at 1600, 150 mL
Reas on for Anti-Infec tive: Empiric Therapy for Suspected Infection< br>Empiric Therapy Site: Abdominal< br>Duratio n of therapy: 72 hours cholecalcif 2020-0 Yes [id number] 1000U Take 1 Univers melissa, 7-13 tablet by ity of vitamin D3, 00:00: mouth [place] 25 mcg 00 daily. Medical (1,000 Branch unit) tablet cholecalcif 2020-0 Yes [id number] 1000U Take 1 [facility] melissa, 7-13 tablet by ity of vitamin D3, 00:00: mouth [place] 25 mcg 00 daily. Medical (1,000 Branch unit) tablet cholecalcif 2020-0 Yes [id number] 1000U Take 1 Univers melsisa, 7-13 tablet by ity of vitamin D3, 00:00: mouth [place] 25 mcg 00 daily. Medical (1,000 Branch unit) tablet cholecalcif 2020-0 Yes [id number] 1000U Take 1 Univers melissa, 7-13 tablet by ity of vitamin D3, 00:00: mouth [place] 25 mcg 00 daily. Medical (1,000 Branch unit) tablet cholecalcif 2020-0 Yes [id number] 1000U Take 1 [facility] melissa, 7-13 tablet by ity of vitamin D3, 00:00: mouth [place] 25 mcg 00 daily. Medical (1,000 Branch unit) tablet cholecalcif 2020-0 Yes [id number] 1000U Take 1 [facility] melissa, 7-13 tablet by ity of vitamin D3, 00:00: mouth [place] 25 mcg 00 daily. Medical (1,000 Branch unit) tablet cholecalcif 2020-0 Yes [id number] 1000U Take 1 [facility] melissa, 7-13 tablet by ity of vitamin D3, 00:00: mouth [place] 25 mcg 00 daily. Medical (1,000 Branch unit) tablet cholecalcif 2020-0 Yes [id number] 1000U Take 1 [facility] melissa, 7-13 tablet by ity of vitamin D3, 00:00: mouth [place] 25 mcg 00 daily. Medical (1,000 Branch unit) tablet cholecalcif 2020-0 Yes [id number] 1000U Take 1 [facility] melissa, 7-13 tablet by ity of vitamin D3, 00:00: mouth [place] 25 mcg 00 daily. Medical (1,000 Branch unit) tablet cholecalcif 2020-0 Yes [id number] 1000U Take 1 [facility] melissa, 7-13 tablet by ity of vitamin D3, 00:00: mouth [place] 25 mcg 00 daily. Medical (1,000 Branch unit) tablet cholecalcif 2020-0 Yes [id number] 1000U Take 1 Univers melissa, 7-13 tablet by ity of vitamin D3, 00:00: mouth [place] 25 mcg 00 daily. Medical (1,000 Branch unit) tablet cholecalcif 2020-0 Yes [id number] 1000U Take 1 Univers melissa, 7-13 tablet by ity of vitamin D3, 00:00: mouth [place] 25 mcg 00 daily. Medical (1,000 Branch unit) tablet cholecalcif 2020-0 Yes [id number] 1000U Take 1 Univers melissa, 7-13 tablet by ity of vitamin D3, 00:00: mouth [place] 25 mcg 00 daily. Medical (1,000 Branch unit) tablet cholecalcif 2020-0 Yes [id number] 1000U Take 1 Univers melissa, 7-13 tablet by ity of vitamin D3, 00:00: mouth [place] 25 mcg 00 daily. Medical (1,000 Branch unit) tablet cholecalcif 2020-0 Yes [id number] 1000U Take 1 Univers melissa, 7-13 tablet by ity of vitamin D3, 00:00: mouth [place] 25 mcg 00 daily. Medical (1,000 Branch unit) tablet cholecalcif 2020-0 Yes [id number] 1000U Take 1 Univers melissa, 7-13 tablet by ity of vitamin D3, 00:00: mouth [place] 25 mcg 00 daily. Medical (1,000 Branch unit) tablet cholecalcif 2020-0 Yes [id number] 1000U Take 1 Univers melissa, 7-13 tablet by ity of vitamin D3, 00:00: mouth [place] 25 mcg 00 daily. Medical (1,000 Branch unit) tablet cholecalcif 2020-0 Yes [id number] 1000U Take 1 Univers melissa, 7-13 tablet by ity of vitamin D3, 00:00: mouth [place] 25 mcg 00 daily. Medical (1,000 Branch unit) tablet cholecalcif 2020-0 Yes [id number] 1000U Take 1 Univers melissa, 7-13 tablet by ity of vitamin D3, 00:00: mouth [place] 25 mcg 00 daily. Medical (1,000 Branch unit) tablet cholecalcif 2020-0 Yes [id number] 1000U Take 1 Univers melissa, 7-13 tablet by ity of vitamin D3, 00:00: mouth [place] 25 mcg 00 daily. Medical (1,000 Branch unit) tablet cholecalcif 2020-0 Yes [id number] 1000U Take 1 Univers melissa, 7-13 tablet by ity of vitamin D3, 00:00: mouth [place] 25 mcg 00 daily. Medical (1,000 Branch unit) tablet cholecalcif 2020-0 Yes [id number] 1000U Take 1 Univers melissa, 7-13 tablet by ity of vitamin D3, 00:00: mouth [place] 25 mcg 00 daily. Medical (1,000 Branch unit) tablet cholecalcif 2020-0 Yes [id number] 1000U Take 1 Univers melissa, 7-13 tablet by ity of vitamin D3, 00:00: mouth [place] 25 mcg 00 daily. Medical (1,000 Branch unit) tablet cholecalcif 2020-0 Yes [id number] 1000U Take 1 Univers melissa, 7-13 tablet by ity of vitamin D3, 00:00: mouth [place] 25 mcg 00 daily. Medical (1,000 Branch unit) tablet cholecalcif 2020-0 Yes [id number] 1000U Take 1 Univers melissa, 7-13 tablet by ity of vitamin D3, 00:00: mouth [place] 25 mcg 00 daily. Medical (1,000 Branch unit) tablet cholecalcif 2020-0 Yes [id number] 1000U Take 1 Univers melissa, 7-13 tablet by ity of vitamin D3, 00:00: mouth [place] 25 mcg 00 daily. Medical (1,000 Branch unit) tablet cholecalcif 2020-0 Yes [id number] 1000U Take 1 Univers melissa, 7-13 tablet by ity of vitamin D3, 00:00: mouth [place] 25 mcg 00 daily. Medical (1,000 Branch unit) tablet cholecalcif 2020-0 Yes [id number] 1000U Take 1 Univers melissa, 7-13 tablet by ity of vitamin D3, 00:00: mouth [place] 25 mcg 00 daily. Medical (1,000 Branch unit) tablet cholecalcif 2020-0 Yes [id number] 1000U Take 1 Univers melisas, 7-13 tablet by ity of vitamin D3, 00:00: mouth [place] 25 mcg 00 daily. Medical (1,000 Branch unit) tablet cholecalcif 2020-0 Yes [id number] 1000U Take 1 Univers melissa, 7-13 tablet by ity of vitamin D3, 00:00: mouth [place] 25 mcg 00 daily. Medical (1,000 Branch unit) tablet cholecalcif 2020-0 Yes [id number] 1000U Take 1 Univers melissa, 7-13 tablet by ity of vitamin D3, 00:00: mouth [place] 25 mcg 00 daily. Medical (1,000 Branch unit) tablet NIFEDIPINE 2020-0 Yes Take by Univ ers ORAL 7-12 mouth. ity of 20:41: [place] Medical Branch pantoprazol 2020-0 Yes Take by Uni vers e sodium 7-12 mouth. ity of (PANTOPRAZO 20:41: [place] LE ORAL) 48 Medical Branch rOPINIRole 2020-0 Yes .5mg Take 0.5 Uni vers 0.5 mg 7-12 mg by ity of tablet 20:41: mouth at [place] 48 bedtime. Medical Branch HYDROcodone 2020-0 Yes 1{tbl} Take 1 Un carmelo -acetaminop 7-12 tablet by ity of hen 10-325 20:41: mouth [place] mg tablet 48 every 6 Medical (six) Branch hours as needed for Pain (scale 4-6). NIFEDIPINE 2020-0 Yes Take by Univ ers ORAL 7-12 mouth. ity of 20:41: [place] 48 Medical Branch pantoprazol 2020-0 Yes Take by Uni vers e sodium 7-12 mouth. ity of (PANTOPRAZO 20:41: [place] LE ORAL) 48 Medical Branch rOPINIRole 2020-0 Yes .5mg Take 0.5 Uni vers 0.5 mg 7-12 mg by ity of tablet 20:41: mouth at [place] 48 bedtime. Medical Branch HYDROcodone 2020-0 Yes 1{tbl} Take 1 Un carmelo -acetaminop 7-12 tablet by ity of hen 10-325 20:41: mouth [place] mg tablet 48 every 6 Medical (six) Branch hours as needed for Pain (scale 4-6). NIFEDIPINE 2020-0 Yes Take by Univ ers ORAL 7-12 mouth. ity of 20:41: [place] 48 Medical Branch pantoprazol 2020-0 Yes Take by Uni vers e sodium 7-12 mouth. ity of (PANTOPRAZO 20:41: [place] LE ORAL) 48 Medical Branch rOPINIRole 2020-0 Yes .5mg Take 0.5 Uni vers 0.5 mg 7-12 mg by ity of tablet 20:41: mouth at [place] 48 bedtime. Medical Branch HYDROcodone 2020-0 Yes 1{tbl} Take 1 Un carmelo -acetaminop 7-12 tablet by ity of hen 10-325 20:41: mouth [place] mg tablet 48 every 6 Medical (six) Branch hours as needed for Pain (scale 4-6). losartan 2020-0 2020- No Take by Unive rs potassium 7-12 07-12 mouth. ity of (LOSARTAN 20:07: 00:00 [place] ORAL) 19 :00 Medical Branch NIFEdipine 2020-0 Yes 10mg 10 mg, Unive rs (ADALAT) 7-12 Oral, ity of capsule 10 14:00: DAILY, [place] mg 00 First dose Medical [facility] 10/29/19 at 0900, Until Discontinu ed cholecalcif 2020-0 Yes 1000U 1,000 Univ ers melissa 7-12 Units, ity of (vitamin 14:00: Oral, [place] D3) tablet 00 DAILY, Medical 1,000 Units First dose Br anch on [place] 10/29/19 at 0900, Until Discontinu ed, Routine
solar crew member approving Non-formul maciel medication : MEGADC
Reason for non-formul maciel use: SPECIFIC INDICATION FOR NONFORMULA RY PRODUCT pantoprazol 2020-0 Yes 40mg 40 mg, Univ ers e 7-12 Oral, ity of (PROTONIX) 14:00: DAILY, [place] EC tablet 00 First dose Medi linda 40 mg on [facility] 10/29/19 at 0900, Until Discontinu ed heparin 2020-0 Yes 7500U 7,500 Univers (porcine) 7-12 Units, ity of injection 11:00: [place]cut[place]o [place] 7,500 Units 00 us, Q8H, Medi linda First dose Branch on [place] 10/29/19 at 0600, Until Discontinu ed, Routine metroNIDAZO 2020-0 Yes 500mg 500 mg, IV Univers LE in NaCl 7-12 Infusion, ity of (iso-os) 05:00: Q8H ABX, [place] (FLAGYL 00 First dose Medica l I.V.) RTU on [facility] IV infusion 10/29/19 at 500 mg 0000, Until Discontinu ed, 100 mL
Reas on for Anti-Infec tive: Empiric Therapy for Suspected Infection< br>Empiric Therapy Site: Abdominal< br>Duratio n of therapy: 72 hours pramipexole 2020-0 Yes .125mg 0.125 mg, Univers (MIRAPEX) 7-12 Oral, ity of tablet 02:30: DAILY, [place] 0.125 mg 00 First dose Medic al on [facility] Branch 10/28/19 at 2130, Until Discontinu ed
Facu lty member approving Restricted medication : MEGADC temazepam 2020-0 Yes 15mg 15 mg, Univer s (RESTORIL) 7-12 Oral, ity of capsule 15 02:23: QHSPRN, [place] mg 45 Starting Medical [facility] Branch 10/28/19 at 2123, Until Discontinu ed, Routine, Insomnia guaiFENesin 2020-0 Yes 200mg 200 mg, Un carmelo 100 mg/5 mL -12 Oral, ity of solution 02:20: Q4HPRN, [place] 200 mg 16 Starting Medical [facility] Branch 10/28/19 at 2120, Until Discontinu ed, Routine, Cough D5W 0.9% 2020-0 2020- No 1000mL at 75 Unive rs NaCl (NS) 7-12 07-12 mL/hr, ity of IV infusion 01:15: 05:32 1,000 mL, [place] 1,000 mL 00 :19 IV Medical Infusion, Branch CONTINUOUS , Starting [facility] 10/28/19 at 2015, Until [place] 10/29/19 at 0032, Routine ascorbic 2020-0 Yes 500mg 500 mg, Unive rs acid 7-12 Oral, BID, ity of (vitamin C) 01:00: First dose [place] (VITAMIN C) 00 on Sat Medica l tablet 500 10/28/19 at [facility] mg 1999, Until Discontinu ed, Routine zinc 2020-0 Yes 220mg 220 mg, Univers sulfate 7-12 Oral, TID, ity of (ORAZINC) 01:00: First dose [place] capsule 220 00 on Sat Medica l mg 10/28/19 at [place] 1999, Until Discontinu ed, Routine lactobacill 2020-0 Yes 1{tbl} 1 tablet, Univers us 7-12 Oral, BID, ity of acidophilus 01:00: First dose [place] (ACIDOPHILL 00 on Sat Medica l US) 25 10/28/19 at [facility] 1999, cell -100 Until mg captab 1 Discontinu tablet ed, Routine heparin 2020-0 2020- No 5000U 5,000 Univers (porcine) 7-12 07-12 Units, ity of injection 01:00: 05:00 [place]o [place] 5,000 Units 00 :02 us, Q12H, Med ical First dose Branch on 10/28/19 at 2000, Until Discontinu ed, Routine HYDROcodone 2020-0 Yes 1{tbl} 1 tablet, Univers -acetaminop 7-12 Oral, ity of hen (NORCO) 00:29: Q6HPRN, J[place] as 10-325 mg 51 Starting Medica l tablet 1 Sat [place] tablet 10/28/19 at 1929, Until Discontinu ed, Routine, Pain (scale 4-6) morpHINE 2020-0 Yes 2mg 2 mg, Slow Uni vers injection 2 7-12 IV Push, ity of mg 00:01: Q6HPRN, [place] 11 Starting Medical Sat Branch 10/28/19 at 1901, Until Discontinu ed, Routine, Pain (scale 7-10) ascorbic 2020-0 Yes [id number] 1000mg Take 2 U nivers acid, 7-12 tablets by ity of vitamin C, 00:00: mouth [place] 500 mg 00 daily. Medical tablet Branch lactobacill 2020-0 Yes [id number] 1{tbl} Take 1 Univers us 7-12 tablet by ity of acidophilus 00:00: mouth 2 Jai as 25 million 00 (two) Medical cell -100 times Branch mg captab daily. ascorbic 2020-0 Yes [id number] 1000mg Take 2 U nivers acid, 7-12 tablets by ity of vitamin C, 00:00: mouth [place] 500 mg 00 daily. Medical tablet Branch lactobacill 2020-0 Yes [id number] 1{tbl} Take 1 Univers us 7-12 tablet by ity of acidophilus 00:00: mouth 2 [place] as 25 million 00 (two) Medical cell -100 times Branch mg captab daily. ascorbic 2020-0 Yes [id number] 1000mg Take 2 U nivers acid, 7-12 tablets by ity of vitamin C, 00:00: mouth [place] 500 mg 00 daily. Medical tablet Branch lactobacill 2020-0 Yes [id number] 1{tbl} Take 1 Univers us 7-12 tablet by ity of acidophilus 00:00: mouth 2 [place] as 25 million 00 (two) Medical cell -100 times Branch mg captab daily. ascorbic 2020-0 Yes [id number] 1000mg Take 2 U nivers acid, 7-12 tablets by ity of vitamin C, 00:00: mouth [place] 500 mg 00 daily. Medical tablet Branch lactobacill 2020-0 Yes [id number] 1{tbl} Take 1 Univers us 7-12 tablet by ity of acidophilus 00:00: mouth 2 [place] as 25 million 00 (two) Medical cell -100 times Branch mg captab daily. ascorbic 2020-0 Yes [id number] 1000mg Take 2 U nivers acid, 7-12 tablets by ity of vitamin C, 00:00: mouth [place] 500 mg 00 daily. Medical tablet Branch lactobacill 2020-0 Yes [id number] 1{tbl} Take 1 Univers us 7-12 tablet by ity of acidophilus 00:00: mouth 2 [place] as 25 million 00 (two) Medical cell -100 times Branch mg captab daily. ascorbic 2020-0 Yes [id number] 1000mg Take 2 U nivers acid, 7-12 tablets by ity of vitamin C, 00:00: mouth [place] 500 mg 00 daily. Medical tablet Branch lactobacill 2020-0 Yes [id number] 1{tbl} Take 1 Univers us 7-12 tablet by ity of acidophilus 00:00: mouth 2 [place] as 25 million 00 (two) Medical cell -100 times Branch mg captab daily. ascorbic 2020-0 Yes [id number] 1000mg Take 2 U nivers acid, 7-12 tablets by ity of vitamin C, 00:00: mouth [place] 500 mg 00 daily. Medical tablet Branch lactobacill 2020-0 Yes [id number] 1{tbl} Take 1 Univers us 7-12 tablet by ity of acidophilus 00:00: mouth 2 [place] as 25 million 00 (two) Medical cell -100 times Branch mg captab daily. ascorbic 2020-0 Yes [id number] 1000mg Take 2 U nivers acid, 7-12 tablets by ity of vitamin C, 00:00: mouth [place] 500 mg 00 daily. Medical tablet Branch lactobacill 2020-0 Yes [id number] 1{tbl} Take 1 Univers us 7-12 tablet by ity of acidophilus 00:00: mouth 2 [place] 25 million 00 (two) Medical cell -100 times Branch mg captab daily. ascorbic 2020-0 Yes [id number] 1000mg Take 2 U nivers acid, 7-12 tablets by ity of vitamin C, 00:00: mouth [place] 500 mg 00 daily. Medical tablet Branch lactobacill 2020-0 Yes [id number] 1{tbl} Take 1 Univers us 7-12 tablet by ity of acidophilus 00:00: mouth 2 [place] 25 million 00 (two) Medical cell -100 times Branch mg captab daily. ascorbic 2020-0 Yes [id number] 1000mg Take 2 U nivers acid, 7-12 tablets by ity of vitamin C, 00:00: mouth [place] 500 mg 00 daily. Medical tablet Branch lactobacill 2020-0 Yes [id number] 1{tbl} Take 1 Univers us 7-12 tablet by ity of acidophilus 00:00: mouth 2 [place] as 25 million 00 (two) Medical cell -100 times Branch mg captab daily. ascorbic 2020-0 Yes [id number] 1000mg Take 2 U nivers acid, 7-12 tablets by ity of vitamin C, 00:00: mouth [place] 500 mg 00 daily. Medical tablet Branch lactobacill 2020-0 Yes [id number] 1{tbl} Take 1 Univers us 7-12 tablet by ity of acidophilus 00:00: mouth 2 [place] as 25 million 00 (two) Medical cell -100 times Branch mg captab daily. ascorbic 2020-0 Yes [id number] 1000mg Take 2 U nivers acid, 7-12 tablets by ity of vitamin C, 00:00: mouth [place] 500 mg 00 daily. Medical tablet Branch lactobacill 2020-0 Yes [id number] 1{tbl} Take 1 Univers us 7-12 tablet by ity of acidophilus 00:00: mouth 2 [place] as 25 million 00 (two) Medical cell -100 times Branch mg captab daily. ascorbic 2020-0 Yes [id number] 1000mg Take 2 U nivers acid, 7-12 tablets by ity of vitamin C, 00:00: mouth [place] 500 mg 00 daily. Medical tablet Branch lactobacill 2020-0 Yes [id number] 1{tbl} Take 1 Univers us 7-12 tablet by ity of acidophilus 00:00: mouth 2 [place] as 25 million 00 (two) Medical cell -100 times Branch mg captab daily. ascorbic 2020-0 Yes [id number] 1000mg Take 2 U nivers acid, 7-12 tablets by ity of vitamin C, 00:00: mouth [place] 500 mg 00 daily. Medical tablet Branch lactobacill 2020-0 Yes [id number] 1{tbl} Take 1 Univers us 7-12 tablet by ity of acidophilus 00:00: mouth 2 [place] as 25 million 00 (two) Medical cell -100 times Branch mg captab daily. ascorbic 2020-0 Yes [id number] 1000mg Take 2 U nivers acid, 7-12 tablets by ity of vitamin C, 00:00: mouth [place] 500 mg 00 daily. Medical tablet Branch lactobacill 2020-0 Yes [id number] 1{tbl} Take 1 Univers us 7-12 tablet by ity of acidophilus 00:00: mouth 2 [place] as 25 million 00 (two) Medical cell -100 times Branch mg captab daily. ascorbic 2020-0 Yes [id number] 1000mg Take 2 U nivers acid, 7-12 tablets by ity of vitamin C, 00:00: mouth [place] 500 mg 00 daily. Medical tablet Branch lactobacill 2020-0 Yes [id number] 1{tbl} Take 1 Univers us 7-12 tablet by ity of acidophilus 00:00: mouth 2 [place] as 25 million 00 (two) Medical cell -100 times Branch mg captab daily. ascorbic 2020-0 Yes [id number] 1000mg Take 2 U nivers acid, 7-12 tablets by ity of vitamin C, 00:00: mouth [place] 500 mg 00 daily. Medical tablet Branch lactobacill 2020-0 Yes [id number] 1{tbl} Take 1 Univers us 7-12 tablet by ity of acidophilus 00:00: mouth 2 [place] as 25 million 00 (two) Medical cell -100 times Branch mg captab daily. ascorbic 2020-0 Yes [id number] 1000mg Take 2 U nivers acid, 7-12 tablets by ity of vitamin C, 00:00: mouth [place] 500 mg 00 daily. Medical tablet Branch lactobacill 2020-0 Yes [id number] 1{tbl} Take 1 Univers us 7-12 tablet by ity of acidophilus 00:00: mouth 2 [place] as 25 million 00 (two) Medical cell -100 times Branch mg captab daily. ascorbic 2020-0 Yes [id number] 1000mg Take 2 U nivers acid, 7-12 tablets by ity of vitamin C, 00:00: mouth [place] 500 mg 00 daily. Medical tablet Branch lactobacill 2020-0 Yes [id number] 1{tbl} Take 1 Univers us 7-12 tablet by ity of acidophilus 00:00: mouth 2 [place] as 25 million 00 (two) Medical cell -100 times Branch mg captab daily. ascorbic 2020-0 Yes [id number] 1000mg Take 2 U nivers acid, 7-12 tablets by ity of vitamin C, 00:00: mouth [place] 500 mg 00 daily. Medical tablet Branch lactobacill 2020-0 Yes [id number] 1{tbl} Take 1 Univers us 7-12 tablet by ity of acidophilus 00:00: mouth 2 [place] as 25 million 00 (two) Medical cell -100 times Branch mg captab daily. ascorbic 2020-0 Yes [id number] 1000mg Take 2 U nivers acid, 7-12 tablets by ity of vitamin C, 00:00: mouth [place] 500 mg 00 daily. Medical tablet Branch lactobacill 2020-0 Yes [id number] 1{tbl} Take 1 Univers us 7-12 tablet by ity of acidophilus 00:00: mouth 2 [place] as 25 million 00 (two) Medical cell -100 times Branch mg captab daily. ascorbic 2020-0 Yes [id number] 1000mg Take 2 U nivers acid, 7-12 tablets by ity of vitamin C, 00:00: mouth [place] 500 mg 00 daily. Medical tablet Branch lactobacill 2020-0 Yes [id number] 1{tbl} Take 1 Univers us 7-12 tablet by ity of acidophilus 00:00: mouth 2 Jai as 25 million 00 (two) Medical cell -100 times Branch mg captab daily. ascorbic 2020-0 Yes [id number] 1000mg Take 2 U nivers acid, 7-12 tablets by ity of vitamin C, 00:00: mouth [place] 500 mg 00 daily. Medical tablet Branch lactobacill 2020-0 Yes [id number] 1{tbl} Take 1 Univers us 7-12 tablet by ity of acidophilus 00:00: mouth 2 Jai as 25 million 00 (two) Medical cell -100 times Branch mg captab daily. ascorbic 2020-0 Yes [id number] 1000mg Take 2 U nivers acid, 7-12 tablets by ity of vitamin C, 00:00: mouth [place] 500 mg 00 daily. Medical tablet Branch lactobacill 2020-0 Yes [id number] 1{tbl} Take 1 Univers us 7-12 tablet by ity of acidophilus 00:00: mouth 2 Jai as 25 million 00 (two) Medical cell -100 times Branch mg captab daily. ascorbic 2020-0 Yes [id number] 1000mg Take 2 U nivers acid, 7-12 tablets by ity of vitamin C, 00:00: mouth [place] 500 mg 00 daily. Medical tablet Branch lactobacill 2020-0 Yes [id number] 1{tbl} Take 1 Univers us 7-12 tablet by ity of acidophilus 00:00: mouth 2 Jai as 25 million 00 (two) Medical cell -100 times Branch mg captab daily. ascorbic 2020-0 Yes [id number] 1000mg Take 2 U nivers acid, 7-12 tablets by ity of vitamin C, 00:00: mouth [place] 500 mg 00 daily. Medical tablet Branch lactobacill 2020-0 Yes [id number] 1{tbl} Take 1 Univers us 7-12 tablet by ity of acidophilus 00:00: mouth 2 Jai as 25 million 00 (two) Medical cell -100 times Branch mg captab daily. ascorbic 2020-0 Yes [id number] 1000mg Take 2 U nivers acid, 7-12 tablets by ity of vitamin C, 00:00: mouth [place] 500 mg 00 daily. Medical tablet Branch lactobacill 2020-0 Yes [id number] 1{tbl} Take 1 Univers us 7-12 tablet by ity of acidophilus 00:00: mouth 2 Jai as 25 million 00 (two) Medical cell -100 times Branch mg captab daily. ascorbic 2020-0 Yes [id number] 1000mg Take 2 U nivers acid, 7-12 tablets by ity of vitamin C, 00:00: mouth [place] 500 mg 00 daily. Medical tablet Branch lactobacill 2020-0 Yes [id number] 1{tbl} Take 1 Univers us 7-12 tablet by ity of acidophilus 00:00: mouth 2 Jai as 25 million 00 (two) Medical cell -100 times Branch mg captab daily. ascorbic 2020-0 Yes [id number] 1000mg Take 2 U nivers acid, 7-12 tablets by ity of vitamin C, 00:00: mouth [place] 500 mg 00 daily. Medical tablet Branch lactobacill 2020-0 Yes [id number] 1{tbl} Take 1 Univers us 7-12 tablet by ity of acidophilus 00:00: mouth 2 Jai as 25 million 00 (two) Medical cell -100 times Branch mg captab daily. ascorbic 2020-0 Yes [id number] 1000mg Take 2 U nivers acid, 7-12 tablets by ity of vitamin C, 00:00: mouth [place] 500 mg 00 daily. Medical tablet Branch ascorbic 2020-0 Yes [id number] 1000mg Take 2 U nivers acid, 7-12 tablets by ity of vitamin C, 00:00: mouth [place] 500 mg 00 daily. Medical tablet Branch lactobacill 2020-0 Yes [id number] 1{tbl} Take 1 Univers us 7-12 tablet by ity of acidophilus 00:00: mouth 2 Jai as 25 million 00 (two) Medical cell -100 times Branch mg captab daily. lactobacill 2020-0 Yes [id number] 1{tbl} Take 1 Univers us 7-12 tablet by ity of acidophilus 00:00: mouth 2 Jai as 25 million 00 (two) Medical cell -100 times Branch mg captab daily. ciprofloxac 2020-0 2020- No [id number] 500mg Take 1 Univers in HCl 500 10-28 tablet by ity of mg tablet 00:00: 04:59 mouth [place] 00 :00 every 12 Medical (twelve) Branch hours for 10 days. metroNIDAZO 2020-0 2020- No [id number] 500mg Take 1 Univers LE 500 mg 10-28 tablet by ity of tablet 00:00: 04:59 mouth 2 [place] 00 :00 (two) Medical times Branch daily for 10 days. ciprofloxac 2020-0 2020- No [id number] 500mg Take 1 Univers in HCl 500 10-28 tablet by ity of mg tablet 00:00: 04:59 mouth [place] 00 :00 every 12 Medical (twelve) Branch hours for 10 days. metroNIDAZO 2019-0 2020- No [id number] 500mg Take 1 Univers LE 500 mg 10-28 tablet by ity of tablet 00:00: 04:59 mouth 2 [place] 00 :00 (two) Medical times Branch daily for 10 days. metroNIDAZO 2019-0 2020- No 500mg 500 mg, IV Univers LE in NaCl 10-27 Infusion, ity of (iso-os) 21:45: 22:05 ONCE, 1 [place] (FLAGYL 00 :00 dose, Sat Medical I.V.) RTU 10/28/19 at [facility] IV infusion 1645, 100 500 mg mL
Reas on for Anti-Infec tive: Empiric Therapy for Suspected Infection< br>Empiric Therapy Site: Abdominal< br>Duratio n of therapy: 72 hours levoFLOXaci 2019- 2020- No 750mg 750 mg, IV Univers n in D5W 10-27 Piggyback, ity of (LEVAQUIN) 21:45: 22:53 ONCE, 1 [place]ai as 750 mg/150 00 :00 dose, Sat Medi linda mL 10/28/19 at [place] Piggyback 1645, 150 750 mg mL
Reas on for Anti-Infec tive: Empiric Therapy for Suspected Infection< br>Empiric Therapy Site: Abdominal< br>Duratio n of therapy: 72 hours NaCl 0.9% 2019- 2020- No 1000mL at 999 Uni vers (NS) bolus 10-27 mL/hr, ity of infusion 19:00: 19:55 1,000 mL, Jai as 1,000 mL 00 :00 IV Medical Infusion, [place] ONCE, 1 dose, 10/28/19 at 1400, STAT ondansetron 2019- 2020- No 4mg 4 mg, Slow Univers (ZOFRAN 10-27 IV Push, ity of (PF)) 19:00: 18:28 ONCE, 1 [place] injection 4 00 :00 dose, Sat Med ical mg 10/28/19 at [place] 1400, JENNIFER morpHINE 2019- 2020- No 4mg 4 mg, Slow Un carmelo injection 4 10-27 IV Push, ity of mg 19:00: 18:28 ONCE, 1 [place] 00 :00 dose, Sat Medical 10/28/19 at Branch 1400, STAT Vital Signs Vital Name Observation Time Observation Value Comments Source Systolic blood 2020-01-24 16:30:00 118 mm[Hg] Univer sity of pressure [facility] Diastolic blood 2020-01-24 16:30:00 72 mm[Hg] Unive rsity of [facility] Heart rate 2020-01-24 16:30:00 82 /min Universi ty of [place] [facility] Respiratory rate 2020-01-24 16:30:00 21 /min Univ ersity of [facility] Oxygen saturation in 2020-01-24 16:30:00 97 /min University of Arterial blood by [facility] Pulse oximetry [place] Body temperature 2020-01-24 16:25:00 36.78 Stella Univ ersity of [facility] Body height 2020-01-22 12:49:00 175.3 cm Universi ty of [place] [facility] Body weight 2020-01-22 12:49:00 62.6 kg Universi ty of [facility] BMI 2020-01-22 12:49:00 20.37 kg/m2 Universi ty of [facility] Systolic blood 2020-01-11 14:14:00 143 mm[Hg] Univer sity of [facility] Diastolic blood 2020-01-11 14:14:00 83 mm[Hg] Unive rsity of [facility] Heart rate 2020-01-11 14:05:00 68 /min Universi ty of [facility] Body temperature 2020-01-11 14:05:00 36.72 Stella Univ ersity of [place] [facility] Respiratory rate 2020-01-11 14:05:00 15 /min Univ ersity of [facility] Oxygen saturation in 2020-01-11 14:05:00 99 /min University of Arterial blood by [place] [facility] Pulse oximetry Branch Body height 2020-01-09 19:00:00 175.3 cm Universi ty of [place] [facility] Body weight 2020-01-09 19:00:00 62.596 kg Universi ty of [facility] BMI 2020-01-09 19:00:00 20.38 kg/m2 Universi ty of [facility] Systolic blood 2020-01-11 14:14:00 143 mm[Hg] Univer sity of pressure [place] [facility] Diastolic blood 2020-01-11 14:14:00 83 mm[Hg] Unive rsity of pressure [place] [facility] Heart rate 2020-01-11 14:05:00 68 /min Universi ty of [place] [facility] Body temperature 2020-01-11 14:05:00 36.72 Stella Univ ersity of [place] [facility] Respiratory rate 2020-01-11 14:05:00 15 /min Univ ersity of [place] [facility] Oxygen saturation in 2020-01-11 14:05:00 99 /min University of Arterial blood by [facility] Pulse oximetry Branch Body height 2020-01-09 19:00:00 175.3 cm Universi ty of [place] [facility] [place] Body weight 2020-01-09 19:00:00 62.596 kg Universi ty of [place] [facility] BMI 2020-01-09 19:00:00 20.38 kg/m2 Universi ty of [place] [facility] Body temperature 2019-10-29 20:04:00 36.94 Stella Univ ersity of [place] [facility] Systolic blood 2019-10-29 16:00:00 119 mm[Hg] Univer sity of pressure [place] [facility] Diastolic blood 2019-10-29 16:00:00 78 mm[Hg] Unive rsity of pressure [place] [facility] Heart rate 2019-10-29 16:00:00 76 /min Universi ty of [place] [facility] Respiratory rate 2019-10-29 16:00:00 17 /min Univ ersity of [place] [facility] Oxygen saturation in 2019-10-29 16:00:00 97 /min University of Arterial blood by [facility] Pulse oximetry Branch Body weight 2019-10-28 16:47:00 58.968 kg Universi ty of [place] [facility] Body temperature 2019-10-29 20:04:00 36.94 Stella Univ ersity of [place] [facility] Systolic blood 2019-10-29 16:00:00 119 mm[Hg] Univer sity of pressure [place] [facility] Diastolic blood 2019-10-29 16:00:00 78 mm[Hg] Unive rsity of pressure [place] [facility] Heart rate 2019-10-29 16:00:00 76 /min Universi ty of [place] [facility] Respiratory rate 2019-10-29 16:00:00 17 /min Univ ersity of [place] [facility] Oxygen saturation in 2019-10-29 16:00:00 97 /min University of Arterial blood by [facility] Pulse oximetry Branch Body weight 2019-10-28 16:47:00 58.968 kg Universi ty of [facility] Systolic blood 2020-02-22 17:30:00 150 mm[Hg] [facility] pressure Diastolic blood 2020-02-22 17:30:00 81 mm[Hg] [facility] pressure Heart rate 2020-02-22 17:30:00 68 /min [facility] Body temperature 2020-02-22 17:30:[address] [facility] [place] Respiratory rate 2020-02-22 17:30:00 16 /min [facility] [place] Oxygen saturation in 2020-02-22 17:30:00 99 /min [facility] Arterial blood by Pulse oximetry Body height 2020-02-22 14:29:00 175.3 cm [facility] Body weight 2020-02-22 14:29:00 59.24 kg [facility] BMI 2020-02-22 14:29:00 19.29 kg/m2 [facility] Procedures Procedure Date / Time Performing Source Performed Clinician RENAL PANEL 2022-12-11 Lise Rosario [facility] 16:15:00 [facility] CBC WITHOUT DIFF 2022-12-11 Lise Rosario [facility] 16:15:00 [facility] URINALYSIS 2022-12-11 Lise Rosario [facility] 16:15:00 [facility] ASSIGNMENT OF BENEFITS 2022-12-11 Doctor Universit y of 16:00:14 Unassigned, No [facility] OP CLINIC NOTES/CONSULTS 2021-04-04 Doctor Sae ity of 06:01:00 Unassigned, No [facility] REFERRAL- REQUEST/RESPONSE 2021-03-17 Doctor Edis rsity of 06:01:00 Unassigned, No [facility] ASSIGNMENT OF BENEFITS 2021-03-10 Doctor Universit y of 14:27:00 Unassigned, No [facility] XR ENTIRE SPINE 2 OR 3 2020-11-07 Triny Sims [facility] 20:50:00 XR ENTIRE SPINE 2 OR 3 VW 2020-11-07 Triny Sims [facility] 20:50:00 MR LUMBAR SPINE WO CONTRAST 2020-10-10 Requisition, Univ ersity of 13:25:07 Paper [facility] CT LUMBAR SPINE WO CONTRAST 2020-10-07 Requisition, Univ ersity of 19:59:38 Paper [facility] Branch XR HIPS 3 VW LEFT 2020-09-30 Requisition, University 20:18:01 Paper [facility] XR SHOULDER 2+ VW BILATERAL 2020-09-02 Requisition, Univ ersity of 16:20:20 Paper [facility] SURGICAL PATHOLOGY REQUEST 2020-02-22 Fidelina Duo dist 19:23:00 Hospital ESOPHAGOGASTRODUODENOSCOPY (EGD) 2020-02-22 Fidelina Du [facility] 16:30:00 Hospital UPPER GI TRACT, ENDOSCOPIC 2020-02-22 Fidelina Du [facility] 16:30:00 Hospital COVID-19 QUALITATIVE RT-PCR 2020-02-19 Fidelina Du odist 17:20:00 [facility] EGD (ENDO) 2020-01-24 [facility] 15:38:58 Ramon Singletary [facility] CONSENT/REFUSAL FOR DIAGNOSIS AND 2020-01-23 [facility] 15:36:19 Unassigned, No [place] [facility] ASSIGNMENT OF BENEFITS 2020-01-23 Doctor [facility] y of 15:35:50 Unassigned, No [place] [facility] NOTICE OF PRIVACY PRACTICES 2020-01-23 [facility] ersity of 15:35:18 Unassigned, No [place] [facility] CONSENT/REFUSAL FOR DIAGNOSIS AND 2020-01-23 [facility] 15:35:02 Unassigned, No [place] [facility] ASSIGNMENT OF BENEFITS 2020-01-23 [facility] 15:33:40 Unassigned, No [place] [facility] DSU PRE-OP 2020-01-22 [facility] of 05:01:00 Unassigned, No [place] [facility] COLONOSCOPY (ENDO) 2020-01-11 [facility] 13:11:41 Ramon Singletary [facility] DAY SURGERY - ADC 2020-01-11 [facility] of 05:01:00 Unassigned, No [place] [facility] ASSIGNMENT OF BENEFITS 2020-01-10 Doctor Universit y of 16:32:02 Unassigned, No [place] [facility] DSU PRE-OP 2020-01-08 [facility] of 05:01:00 Unassigned, No [place] [facility] BASIC METABOLIC PANEL (NA, K, CL, 2019-10-29 Jhonny Posada University of CO2, GLUCOSE, BUN, CREATININE, CA) 18:26:00 [facility] CBC WITH DIFFERENTIAL 2019-10-29 Liam Posada [facility] of 18:26:00 [facility] LACTATE DEHYDROGENASE 2019-10-29 [facility] of 09:19:00 [facility] MAGNESIUM 2019-10-29 [facility] of 09:19:00 [facility] C-REACTIVE PROTEIN 2019-10-29 [facility] of 09:19:00 [facility] TROPONIN I 2019-10-29 [facility] of 09:19:00 [facility] LACTATE DEHYDROGENASE 2019-10-29 [facility] of 01:25:00 [facility] C-REACTIVE PROTEIN 2019-10-29 [facility] of 01:25:00 [facility] PROCALCITONIN 2019-10-29 [facility] of 01:24:00 [facility] PROTHROMBIN TIME / INR 2019-10-29 [facility], [facility] y of 01:21:00 [facility] D-DIMER 2019-10-29 [facility], [facility] of 01:21:00 [facility] URINALYSIS 2019-10-28 Becky Parker [facility] of 19:54:00 [facility] BLOOD CULTURE SCREEN 2019-10-28 Becky Parker [facility] of 18:26:00 [facility] LACTIC ACID WHOLE BLOOD 2019-10-28 Becky Parker [facility] ty of 18:15:00 [facility] BLOOD CULTURE SCREEN 2019-10-28 Becky Parker [facility] of 18:11:00 [facility] CT ABDOMEN PELVIS WO CONTRAST 2019-10-28 Becky Parker Un iversity of 18:03:44 [facility] FECES CULTURE 2019-10-28 Becky Parker [facility] of 17:13:00 [facility] CLOSTRIDIUM DIFFICILE TOXIN 2019-10-28 Becky Parker [facility] ersity of 17:13:00 [facility] COVID-19 (ID NOW RAPID TESTING) 2019-10-28 Becky Parker [facility] of 17:13:00 [facility] PHOSPHORUS 2019-10-28 [facility] of 17:02:00 [facility] LIPASE 2019-10-28 Becky Parker [facility] 17:02:00 [facility] FERRITIN SERUM 2019-10-28 [facility] 17:02:00 [facility] TROPONIN I 2019-10-28 [facility] 17:02:00 [facility] COMP. METABOLIC PANEL (65528) 2019-10-28 Becky Parker Un iversity of 17:02:00 [facility] CBC WITH DIFFERENTIAL 2019-10-28 Becky Parker [facility] 17:02:00 [facility] ASSIGNMENT OF BENEFITS 2019-10-28 Doctor Universit y of 16:38:57 Unassigned, No [facility] CONSENT/REFUSAL FOR DIAGNOSIS AND 2019-10-28 [facility] [employer] of TREATMENT 16:38:39 Unassigned, No [facility] US ABDOMEN COMPLETE 2019-10-10 [facility] o f 16:42:57 Ramon Singletary [facility] ASSIGNMENT OF BENEFITS 2019-10-10 Doctor Universit y of 15:48:40 Unassigned, No [facility] Plan of Care Planned Activity Planned Date Details Comments Source Future Scheduled 2023-02-19 [facility] Test 13:13:18 malignant neoplasm of colon (procedure) [code = 091870298] Future Scheduled 2023-02-19 [facility] Test 13:13:18 malignant neoplasm of colon (procedure) [code = 504361775] Future Scheduled 2023-02-19 [facility] Test 13:13:18 malignant neoplasm of colon (procedure) [code = 467424479] Future Scheduled 2023-02-19 COVID-19 VACCINE (#1) [facility] Test 13:13:18 [code = COVID-19 VACCINE (#1)] Future Scheduled 2023-02-19 65+ P[facility]UMOCOCCAL [facility] Test 13:13:18 VACCINE (1 - PCV) [code = 65+ PNEUMOCOCCAL VACCINE (1 - PCV)] Future Scheduled 2023-02-19 Hepatitis C screening [facility] Test 13:13:18 (procedure) [code = 389778349] Future Scheduled 2023-02-19 [facility] Test 13:13:18 malignant neoplasm of colon (procedure) [code = 944002876] Future Scheduled 2023-02-19 [facility] Test 13:13:18 malignant neoplasm of colon (procedure) [code = 223592803] Future Scheduled 2023-02-19 SHINGLES VACCINES (1 [facility] Test 13:13:18 of 2) [code = SHINGLES VACCINES (1 of 2)] Future Scheduled 2023-02-19 INFLUENZA VACCINE (#1) [facility] Test 13:13:18 [code = INFLUENZA VACCINE (#1)] Future Scheduled 2023-02-11 [facility] Test 18:48:45 malignant neoplasm of colon (procedure) [code = 346575320] Future Scheduled 2023-02-11 [facility] Test 18:48:45 malignant neoplasm of colon (procedure) [code = 567431546] Future Scheduled 2023-02-11 [facility] Test 18:48:45 malignant neoplasm of colon (procedure) [code = 537345550] Future Scheduled 2023-02-11 COVID-19 VACCINE (#1) [facility] Test 18:48:45 [code = COVID-19 VACCINE (#1)] Future Scheduled 2023-02-11 65+ PNEUMOCOCCAL [facility] Test 18:48:45 VACCINE (1 - PCV) [code = 65+ PNEUMOCOCCAL VACCINE (1 - PCV)] Future Scheduled 2023-02-11 Hepatitis C screening [facility] Test 18:48:45 (procedure) [code = 527436390] Future Scheduled 2023-02-11 [facility] Test 18:48:45 malignant neoplasm of colon (procedure) [code = 645353812] Future Scheduled 2023-02-11 [facility] Test 18:48:45 malignant neoplasm of colon (procedure) [code = 441574345] Future Scheduled 2023-02-11 SHINGLES VACCINES (1 [facility] Test 18:48:45 of 2) [code = SHINGLES VACCINES (1 of 2)] Future Scheduled 2023-02-11 INFLUENZA VACCINE (#1) [facility] [place] Test 18:48:45 [code = INFLUENZA VACCINE (#1)] Future Scheduled 65+ PNEUMOCOCCAL [facility] Test VACCINE (1 of 2 - PPSV23) [code = 65+ PNEUMOCOCCAL VACCINE (1 of 2 - PPSV23)] Future Scheduled COVID-19 VACCINE (1) [facility] Test [code = COVID-19 VACCINE (1)] Future Scheduled Hepatitis C screening [facility] Test (procedure) [code = 318498863] Future Scheduled COLONOSCOPY SCREENING [facility] Test [code = COLONOSCOPY SCREENING] Future Scheduled SHINGLES VACCINES (#1) [facility] [code = SHINGLES VACCINES (#1)] Future Scheduled [facility]ZA [facility]ACCINE [facility] Test [code = INFLUENZA VACCINE] Encounters Start End Encounter Admission Attending Care Care Encounter Source Date/Time Date/Time Type Type Clinicians Facility Department ID 2021-04-[address]A [facility] [id number] [place] 01:04:50 [facility] 2021-02-14 Outpatient R [facility] DINA [id number] Univers 20:50:52 E, JULISA [facility] 2021-02-14 Outpatient R [facility] DINA [id number] Univers 18:38:46 E, JULISA [facility] 2021-02-14 Emergency [facility] [id number] Univers 06:10:33 [facility] 2021-01-14 Outpatient SHIRA, [facility] [id number] [facility] 10:46:04 [facility] 2022-12-15 2022-12-15 [employer] Main [facility] 1.2.8 40.114 [id number] Univers 15:15:00 15:30:00 [phone] [address] 2022-12-15 2022-12-15 Outpatient R KAUSHIK [facility] [id number] Univers 15:15:00 15:15:00 [facility]22-12-11 2022-12-11 [employer], [facility] Lab Main [facility] 1.2.8 40.114 [id number] Univers 11:00:00 11:15:00 Visit Lise Rosario [id number] ity [id number] [phone] [place] dical NAL [address] [facility] 2022-12-11 2022-12-11 Outpatient R KAUSHIK [facility] [id number] Univers 11:00:00 11:00:00 MANAF ity [facility] 2022-12-11 2022-12-11 Orders Doctor TRINY [id number] Univers 00:00:00 00:00:00 Only Unassigned, ALYSON [id number] ity of [place] [facility] [id number] Jai as [phone] [address] 2022-10-12 2022-10-12 Outpatient R RADIOLOGY [facility] [id number] Univers 00:00:00 00:00:00 ity of [facility] 2021-05-08 2021-05-08 Outpatient R JORDYN [facility] [id number] Univers 08:00:00 08:00:00 AJIT ity [facility] 2021-05-01 2021-05-01 Ancillary Josh Colbert [facility] 1.2.840. 114 [id number] Univers 10:00:00 10:40:00 Visit Ajit Cobb [id number] [facility] [id number] [phone] [place] dical NAL [address] [facility] 2021-04-29 2021-04-29 Ancillary Josh Colbert [facility] 1.2.840. 114 [id number] Univers 10:00:00 10:40:00 Visit Ajit Cobb [id number] ity of [id number] [phone] [place] dical NAL [address] [facility] 2021-04-25 2021-04-25 Ancillary Aileen Stevenson [facility] 1.2.84 0.114 [id number] Univers 08:40:00 09:20:00 Visit Ajit [place] [id number] ity of [id number] [phone] Me dical NAL [address] [facility] 2021-04-23 2021-04-23 Ancillary Josh Colbert [facility] 1.2.840. 114 [id number] Univers 08:00:00 08:40:00 Visit Ajit Cobb [id number] [place]y of [place] [id number] [phone] [place] dical NAL [address] [facility] 2021-04-16 2021-04-16 Outpatient R JORDYN [facility] [id number] Univers 07:20:00 07:58:31 AJIT ity of [facility] 2021-04-16 2021-04-16 Ancillary Josh Colbert [facility] 1.2.840. 114 [id number] Univers 07:20:00 07:58:31 Visit Ajit Cobb 350.1.13.10 [place] [phone] Ok dical NAL [address] [facility] 2021-04-14 2021-04-14 Ancillary Josh Colbert [facility] 1.2.840. 114 [id number] Univers 07:20:00 08:00:00 Visit Ajit Cobb 350.1.13.10 it[place] of [place] [phone] Ok dical NAL [address] [facility] 2021-04-09 2021-04-09 Ancillary Marita Trevino [facility] 1.2. 840.114 [id number] Univers 08:00:00 08:40:00 Visit Ajit Cobb 350.1.13.10 it[place] [phone] Ok dical NAL [address] [facility] 2021-04-08 2021-04-08 Ancillary Josh Colbert [facility] 1.2.840. 114 [id number] Univers 10:40:00 11:20:00 Visit Ajit Cobb 350.1.13.10 [place] [phone] Ok dical NAL 179 [facility] 2021-04-04 2021-04-04 Ancillary Aileen Stevenson [facility] 1.2.84 0.114 [id number] Univers 09:20:00 10:20:00 Visit Ajit Cobb YOVANA 350.1.13.10 [facility] [place].2.[place] [phone] Ok dical NAL [address] [facility] 2021-04-04 2021-04-04 Letter Doctor TRINY 1.2.840.114 [id number] Univers 00:00:00 00:00:00 (Out) Unassigned, ALYSON 350.1.13.10 ity of [place] [facility] 4.2.7.2.686 Jai as [phone] [facility] [address] 2021-04-04 2021-04-04 Orders Doctor AGOSTO 1.2.840.114 [id number] Univers 00:00:00 00:00:00 Only Unassigned, ALYSON 350.1.13.10 ity of [place] [facility] 4.2.7.2.686 Jai as [phone] [facility] [address] 2021-03-17 2021-03-17 Orders Doctor TRINY 1.2.840.114 [id number] Univers 00:00:00 00:00:00 Only Unassigned, ALYSON 350.1.13.10 ity of [place] [facility] 4.2.7.2.686 Jai as [phone] [facility] [address] 2021-03-10 2021-03-10 Outpatient R RADIOLOGY [facility] [id number] Univers 08:31:55 23:59:00 ity of [facility] 2021-03-10 2021-03-10 Hospital Radiology [facility] 1.2.840.114 [id number] Univers 08:30:00 23:59:00 Encounter YOVANA 350.1.13.10 [facility] [place].7.2.[place] [phone] [facility] [address] 2021-03-10 2021-03-10 Orders Doctor TRINY 1.2.840.114 [id number] Univers 00:00:00 00:00:00 Only Unassigned, ALYSON 350.1.13.10 ity of [place] [facility] 4.2.7.2.686 Jai as [phone] [address] 2021-01-15 2021-01-15 EXT [facility] IP System, EXT MSRDP 1.2.840.114 1 [id number] [place] 00:00:00 00:00:00 Provider LOCATION 350.1.13.58 Health Not In 9.2.7.2.686 [id number] 0 2021-01-15 2021-01-15 EXT MH IP System, EXT MSRDP 1.2.840.114 1 [id number] [place] 00:00:00 00:00:00 Provider LOCATION 350.1.13.58 Health Not In 9.2.7.2.686 [id number] 0 2020-12-27 2020-12-27 EXT MHH OP Caridi, EXT MSRDP 1.2.840.114 1 [id number] [place] 07:30:00 14:00:00 [facility] LOCATION 350.1.13.58 H ealth 9.2.7.2.686 [phone] 1 2020-12-27 2020-12-27 EXT H OP Caridi, EXT MSRDP 1.2.840.114 1 [id number] [place] 07:30:00 14:00:00 [facility] LOCATION 350.1.13.58 H ealth 9.2.7.2.686 [id number] 1 2020-11-07 2020-11-07 Outpatient A_Byrd [facility] [id number] 021 [place] 11:52:00 11:52:00 [facility] 2020-11-07 2020-11-07 EXT MHH OP Caridi, EXT MSRDP 1.2.840.114 1 [id number] [place] 00:00:00 00:00:00 [facility] LOCATION 350.1.13.58 H ealth 9.2.7.2.686 [id number] 0 2020-11-07 2020-11-07 EXT MHH OP Caridi, EXT MSRDP 1.2.840.114 1 [id number] [place] 00:00:00 00:00:00 Triny PERALES 350.1.13.58 H [facility] 9.2.7.2.686 [id number] 0 2020-10-10 2020-10-10 Hospital Radiology [facility] 1.2.840.114 [id number] Univers 07:33:14 23:59:00 Encounter [place] 350.1.13.10 ity of [place] 4.2.7.2.686 [facility] [id number] [facility] [address] 2020-10-10 2020-10-10 Outpatient R RADIOLOGY [facility] [id number] Univers 00:00:00 00:00:00 ity of [facility] 2020-10-07 2020-10-07 Hospital Radiology [facility] 1.2.840.114 [id number] Univers 14:30:50 23:59:00 Encounter [place] 350.1.13.10 ity of [place] 4.2.7.2.686 [facility] [id number] [facility] [address] 2020-10-07 2020-10-07 Hospital Radiology [facility] 1.2.840.114 [id number] Univers 14:00:00 14:29:00 Encounter [place] 350.1.13.10 ity of [place] 4.2.7.2.686 [facility] [phone] [facility] [address] 2020-10-07 2020-10-07 Outpatient R RADIOLOGY [facility] [id number] Univers 00:00:00 00:00:00 ity of [facility] 2020-09-30 2020-09-30 Hospital Radiology [facility] 1.2.840.114 [id number] Univers 14:57:27 23:59:00 Encounter [place] 350.1.13.10 ity of [place] 4.2.7.2.686 [facility] [phone] [facility] [address] 2020-09-30 2020-09-30 Outpatient R RADIOLOGY [facility] [id number] Univers 00:00:00 00:00:00 ity of [facility] 2020-09-02 2020-09-02 Hospital Radiology [facility] 1.2.840.114 [id number] Univers 11:00:00 23:59:00 Encounter [place] [facility]1.13.10 [facility]2.[facility] [phone] [place] [address] [place] 2020-09-02 2020-09-02 Outpatient R RADIOLOGY [facility] [id number] Univers 00:00:00 00:00:00 ity [facility] 2020-07-16 2020-07-16 Outpatient R CALE, [facility] [id number] Univers 12:30:00 12:30:00 [facility]-06-[facility] 2020-06-25 Outpatient R CALE, [facility] [id number] Univers 11:00:00 11:00:00 PAOLA [facility] 2020-02-22 2020-02-22 Hospital Fidelina Du 1.2.840.1 [id number] Methodi 07:55:00 23:59:[address] 3.430.2.7 Hospit a .3.881407 l .8 2020-02-22 2020-02-22 Anesthesia Dhother, 1.2.840.1 [id number] Methodi 10:30:00 11:05:00 Event Teodoro 26661.1.1 733 s t [place] 3.430.2.7 Hospit a .3.338897 l .8 2020-02-22 2020-02-22 Surgery Fidelina Du 1.2.840.1 [id number] 2099 [id number] Methodi 09:00:00 10:00:[address] 3.430.2.7 Hospit a .3.791780 l .8 2020-02-22 2020-02-22 Orders Gallo, 1.2.840.1 [id number] 2099 727046 Methodi 00:00:00 00:00:00 Only Abi 83369.1.[address] 3.430.2.7 Hospit a .3.532650 l .8 2020-02-21 2020-02-21 Travel 1.2.840.1 1.2.264.052 0320 273464 Methodi 00:00:00 00:00:[address] 3.430.2.7 0.2.7.3.698 Ho spita .3.597246 084.8 l .8 2020-02-19 2020-02-19 Travel 1.2.840.1 1.2.395.681 0621 166237 Methodi 00:00:00 00:00:[address] 3.430.2.7 0.2.7.3.698 Ho spita .3.856083 084.8 l .8 2020-02-16 2020-02-16 Travel 1.2.840.1 1.2.106.369 2207 726180 Methodi 00:00:00 00:00:[address] 3.430.2.7 0.2.7.3.698 Ho spita .3.247516 084.8 l .8 2020-02-15 2020-02-15 Orders Scott, 1.2.840.1 [id number] 0197 Methodi 00:00:00 00:00:00 Only Selene 21607.1.[address] 3.430.2.7 Hospit a .3.861846 l .8 2020-02-15 2020-02-15 Telephone Fidelina Du 1.2.840.1 [id number] Methodi 00:00:00 00:00:[address] 3.430.2.7 Hospit a .3.824451 l .8 2020-02-14 2020-02-14 Telephone Gallo, 1.2.840.1 [id number] Methodi 00:00:00 00:00:[address] 3.430.2.7 Hospit a .3.760198 l .8 2020-02-13 2020-02-13 Telephone Fidelina Du 1.2.840.1 [id number] Methodi 11:15:00 11:30:[address] 3.430.2.7 Hospit a .3.485839 l .8 2020-01-24 2020-01-24 [facility] 1.2.840.114 7 [id number] Univers 08:45:00 11:45:00 Encounter Julisa villagomez 350.1.13.10 [place] [id number] [address] 2020-01-23 2020-01-23 Laboratory Only, Adc Test [facility] 1.2.840. 114 [id number] Univers 10:36:00 10:51:00 Only Julisa Fortune 350.1.1 3.10 [place] [phone] [address] 2020-01-23 2020-01-23 Outpatient [facility] 803 [id number] Univers 10:15:00 10:15:00 JULISA Villagomez o f [facility] 2020-01-11 2020-01-11 [facility] 1.2.840.114 7 [id number] Univers 06:49:00 09:22:00 Encounter Julisa villagomez 350.1.13.10 [place] [phone] [address] 2020-01-11 2020-01-11 [facility] 1.2.840.114 7 [id number] 06:49:00 09:22:00 Encounter Julisa villagomez 350.1.13.10 [place] 4.2.7.2.686 Surgical [id number] [place] [address] 2020-01-11 2020-01-11 Orders Doctor AGOSTO 1.2.840.114 [id number] Univers 00:00:00 00:00:00 Only Unassigned, ALYSON 350.1.13.10 ity of [place] [facility] 4.2.7.2.686 Jai as [id number] [address] 2020-01-11 2020-01-11 Orders Doctor AGOSTO 1.2.840.114 [id number] 86 00:00:00 00:00:00 Only Unassigned, ALYSON 350.1.13.10 [place] [facility] 4.2.7.2.686 [id number] 009 2020-01-10 2020-01-10 Laboratory Only, [facility] Test [facility] 1.2.840. 114 [id number] Univers 11:32:53 11:47:53 Only Annie Caldwell 350.1.13.10 it[place] of [place] 4[place]2.7.2.686 [place] [facility] [phone] [address] 2020-01-10 2020-01-10 Laboratory Only, [facility] 1.2.840.114 7 [id number] 11:32:53 11:47:53 Only Test [place] 350.1.13.10 [place] 4.2.7.2.686 [place] [phone] [facility] 2020-01-10 2020-01-10 Outpatient R JAVI, [facility] [id number] [facility] 11:30:00 11:30:00 ANNIE garcia [facility] 2020-01-10 2020-01-10 Orders Doctor AGOSTO 1.2.840.114 [id number] Univers 00:00:00 00:00:00 Only Unassigned, ALYSON 350.1.13.10 ity of [place] [facility] 4.2.7.2.686 Jai as [id number] [address] 2020-01-10 2020-01-10 Orders Doctor AGOSTO 1.2.840.114 [id number] 00:00:00 00:00:00 Only Unassigned, ALYSON 350.1.13.10 [place] [facility] 4.2.7.2.686 [id number] 2020-01-08 2020-01-08 Orders Doctor TRINY Gupta2.840.114 [id number] Univers 00:00:00 00:00:00 Only Unassigned, ALYSON 350.1.13.10 ity of [place] [facility] 4.2.7.2.686 Jai as [id number] [address] 2020-01-08 2020-01-08 Orders Doctor TRINY 1.2.840.114 [id number] 00:00:00 00:00:00 Only Unassigned, ALYSON 350.1.13.10 [place] [facility] 4.2.7.2.686 [id number] 009 2019-10-31 2019-10-31 Transition Flakita Jones 1.2.840.114 767 [id number] Univers 00:00:00 00:00:00 of Care Livmihir Jacoboy 350.1.13.10 it y of [place] 4.2.7.2.686 [facility] [id number] [facility] [address] 2019-10-31 2019-10-31 Transition Flakita Jones 1.2.840.114 [id number] 00:00:00 00:00:00 of Care Liv Jacoboy 350.1.13.10 [place] 4.2.7.2.686 [id number] 403 2019-10-28 2019-10-29 [facility] 1.2.840.11 4 [id number] 11:39:29 15:41:00 Encounter Liam Posada 350.1.13.10 [place] 4.2.7.2.686 [place] [id number] 080 2019-10-28 2019-10-29 [facility] 1.2.840.11 4 [id number] [facility] 11:39:29 15:41:00 Encounter Liam Posada 350.1.13.10 ity of [place] 4.2.7.2.686 [facility] [phone] [facility] [address] 2019-10-10 2019-10-10 Outpatient R [facility] 082 [id number] Univers 10:55:18 23:59:00 RAMON Cai o f [facility] 2019-10-10 2019-10-10 [facility] 1.2.840.114 7 [id number] 10:55:00 23:59:00 Encounter Ramon cai 350.1.13.10 [place] 4.2.7.2.686 [place] [id number] 806 2019-10-10 2019-10-10 [facility] Daria [facility] 1.2.840.114 7 [id number] Univers 10:55:00 23:59:00 Ramon Hardy Yovana 350.1.13.10 ity of [place] 4.2.7.2.686 [facility] [id number] [facility] [address] 2019-10-10 2019-10-10 Orders Doctor TRINY 1.2.840.114 [id number] 00:00:00 00:00:00 Only Unassigned, ALYSON 350.1.13.10 [place] [facility] 4.2.7.2.686 [id number] 009 2019-10-10 2019-10-10 Orders Doctor TRINY 1.2.840.114 [id number] [facility] 00:00:00 00:00:00 Only Unassigned, ALYSON 350.1.13.10 ity of [place] [facility] 4.2.7.2.686 [facility] [id number] [facility] [address] 2018-11-23 2018-11-23 Outpatient [facility] 7503 16:11:00 16:11:[address] [facility] 2018-11-11 2018-11-11 Outpatient [facility] 7502 13:33:00 13:33:[address] [facility] [address] [facility] Results Test Description Test Time Test Comments Results Result Comments Source RENAL PANEL 2022-12-11 17:29:11 Test Item Value Reference Range Interpretation Comme nts ALBUMIN (test code = 5664813449) 4.2 g/dL 3.5-5.0 CALCIUM (test code = 0276234809) 9.5 mg/dL 8.6-10.6 CO2 TOTAL (test code = 4171530873) 30 mmol/L 23-31 CREATININE (test code = 1.43 mg/dL 0.60-1.25 H 6916131632) GLUCOSE (test code = 8492031854) 112 mg/dL 70-110 H K (test code = 3754846689) 4.4 mmol/L 3.5-5.0 NA (test code = 0166716166) 141 mmol/L 135-145 BUN (test code = 1346528425) 18 mg/dL 7-23 PHOSPHORUS (test code = 3.7 mg/dL 2.5-5.0 0930160585) eGFR (test code = 2310896304) 48.2 mL/min/1.73m2 KRYSTAL (test code = KRYSTAL) Association of Glomerular Filtration Rate (GFR) and Staging of Kidney Disease* + +-------- + ------+| GFR (mL/min/1.73 m2) ?| With Kidney Damage ?| ?Without Kidney Damage+ +-- + +| ?>90 ?| ?Stage one ?| ? Normal ?+ +------- + -------+| ?60-89 ?| ?Stage two ?| ? Decreased GFR ? + +-------- + ------+| ?30-59 ?| ?Stage three ?| ? Stage three ? + +-------- + ------+| ?15-29 ?| ?Stage four ? | ? Stage four ?+ +------- + -------+| ?<15 (or dialysis) ? ?| ?Stage five ? | ? Stage five ?+ +------- + -------+ *Each stage assumes the associated GFR level has been in effect for at least three months. ?Stages 1 to 5, with or without kidney disease, indicate chronic kidney disease. Notes: Determination of stages one and two (with eGFR >59mL/min/1.73 m2) requires estimation of kidney damage for at least three months as defined by structural or functional abnormalities of the kidney, manifested by either:Pathological abnormalities or Markers of kidney damage (including abnormalities in the composition of the blood or urine or abnormalities in imaging tests). Lab Interpretation (test code = Abnormal 18359-9) [facility] WITHOUT [id number] 16:36:43 Test Item Value Reference Range Interpretation Comments WBC (test code = 6690-2) 8.77 See_Comment [A utomated message] The system [employer] generated this result transmit pacheco reference range : 4.20 - 10.70 10*3/?L. The reference range was not used to interpret this result as normal/abnormal . RBC (test code = 789-8) 4.30 See_Comment [Au tomated message] The system [employer] generated this result transmit pacheco reference range : 4.26 - 5.52 10* 6/?L. The reference r erasmo was not used to interpret this result as normal/abnormal . HGB (test code = 718-7) 14.7 g/dL 12.2-16.4 HCT (test code = 4544-3) 42.9 % 38.4-49.3 MCH (test code = 785-6) 34.2 pg 26.1-32.7 H MCV (test code = 787-2) 99.8 fL 81.7-95.6 H MCHC (test code = 786-4) 34.3 g/dL 31.2-35.0 PLT (test code = 777-3) 312 See_Comment [Au tomated message] The system [employer] generated this result transmit pacheco reference range : 150 - 328 10*3/?L. The reference range was not used to interpret this result as normal/abnormal . MPV (test code = 9.4 fL 9.8-13.0 L 87526-4) RDW-CV (test code = 12.9 % 12.1-15.4 788-0) RDW-SD (test code = 47.8 fL 38.5-51.6 59433-9) NRBC x10^3 (test code = See_Comment [Au tomated message] 6527029581) The system [employer] generated this result transmit pacheco reference range : 10*3/?L. The reference range was not used to interpret this result as normal/abnormal . NRBC/100 WBC (test code 0.0 See_Comment [Au tomated message] = 3272972556) The system [employer] generated this result transmit pacheco reference range : 0.0 - 10.0 /100 WBC s. The reference r reasmo was not used to interpret this result as normal/abnormal . IPF % (test code = 9211889322) Lab Interpretation (test Abnormal code = 92401-3) [facility] [id number] 21:14:53 Postsurgical changes as detailed above. No acute osseous or hardwareabnormality. Incidentally notedprostatomegalyCT LUMBAR SPINE WO CONTRAST HISTORY: Male 75 years COMPARISON: CT abdomen/pelvis date10/28/2019 TECHNIQUE: Routine CT lumbar spine without contrast FINDINGS: Postsurgical changes of L5 laminectomy and L4- L5 and L5-S1 interbody fusionare noted. Right-sided L4-L5 posterior spinal fusion hardware is notedwithout evidence of hardware complication. Ghost tracks are again noted onthe left. Right L4 facetectomy and left L4-L5 and L5-S1 facetectomies arealso noted partial osseous fusion across the right L5-S1 facet and the leftL4-L5 facet have been achieved. Slight reversal of the normal cerv ical lordosis. The vertebral bodies arenormal in height and in normal alignment. No facet fracture or subluxationis present. Mild to moderate spondylotic changes are present throughout the lumbarspine.Moderate disc height loss is noted at L2- L3 and L3-L4. The prostate is incidentally noted to be enlarged. [facility], Radiant Results Inft User - 10/07/2020 4:[address] LUMBAR SPINE WO CONTRASTHISTORY: Male 75 yearsCOMPARISON: CT abdomen/pelvis dated 10/28/2019TECHNIQUE: Routine CT lumbar spine without contrastFINDINGS:Postsurgical changes of M8mkrlxeezjws and L4-L5 and L5-S1 interbody fusionare noted. Right-sided L4-L5 posterior spinal fusion hardware is notedwithout evidence of hardware complication. Ghost tracks are again noted onthe left.Right L4 facetectomy and left L4-L5 and L5-S1 facetectomies arealso noted partial osseous fusion across the right L5-S1 facet and the leftL4-L5 facet have been achieved.Slight reversal of the normal cer vical lordosis. The vertebral bodies arenormal in height and in normal alignment. No facet fracture or subluxationis present.Mild to moderate spondylotic changes are present throughout the lumbarspine.Moderate disc height loss is noted at L2-L3 and L3-L4.The prostate is incidentally noted to be enlarg ed.IMPRESSIONPostsurgical changes as detailed above. No acute osseous or hardwareabnormality.Incidentally noted prostatomegalyUnCHRISTUS Spohn [facility] – SouthXR HIPS 3 VW [id number] 22:20:47No acute or focal osseous abnormality left hip. RL: 5611 END OF REPORT Ordering Physician: KHURRAM BAUM Clinical Indication: Pain in left hip external orders noted on orders Acuteleft hip pain ,denies any injuries Additional Clinical Information: Technical Quality: Good Comparison: None Technique: 2 view left hip Findings: There is normal bonemineralization. Overlying vascularcalcification. There is no focal lytic or blastic process. [facility], Radiant Results Inft User - 09/30/2020 5:21 PM CDT Ordering Physician: KHURRAM BAUMClinical Indication: Pain in left hip external orders noted on orders Acuteleft hip pain ,denies any injuriesAdditional Clinical Information:Technical Quality: GoodComparison: NoneTechnique: 2 view left hipFindings: There is normal bone mineralization. Overlying vascularcalcification. There is no focal lytic or blastic process.IMPRESSIONNo acute or focal osseous abnormality left hip.RL: 5611END OF REPORT [facility] HospitalXR SHOULDER 2+ VW [id number] 20:27:35 Impression:1. ?No acute osseous abnormalities.2. 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 Suspected calcific tendinopathy right shoulder. Location Code: 2831 Clinical indication: Bilateral shoulder pain Carlos dy: Three-view bilateral shoulder series. Comparison: None. Ordering Physician: KHURRAM BAUM Findings:3 views each of the bilateral shoulders demonstrate normal alignment andmineralization. ?There is no fracture. ?No destructive lesion is seen. ?Thesoft tissues are unremarkable. Hypertrophic degenerative changes are seenin the AC joints with upward and downward projecting osteophytes. Suspectedossification seen in the region of the rotator cuff tendon on the right.Glenohumeral joint is intact. [facility], Radiant Results Inft User - 09/02/2020 3:28 PM CDTClinical indication: Bilateral shoulder pain Study: Three- view bilateral shoulder series.Comparison: None.Ordering Physician: KHURRAM BAUMFindings:3 views each of the bilateral shoulders demonstrate normal alignment andmineralization. There is nofracture. No destructive lesion is seen. Thesoft tissues are unremarkable. Hypertrophic degenerativechanges are seenin the AC joints with upward and downward projecting osteophytes. Suspectedossification seen in the region of the rotator cuff tendon on the right.Glenohumeral joint is intact.IMPRESSIONImpression:1. No acute osseous abnormalities.2. 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 Suspected calcific tendinopathy right shoulder.Location Code: [address] [facility] [id number] 20:46:50 Test Item Value Reference Range Interpretation Comments Case number (test code = [id number]) Surgical pathology See link below for report (test code = PDF Lab Report 2255) Result status (test code This is Final Report = [id number]) for [id number] [facility] METABOLIC PANEL (NA, K, CL, CO2, GLUCOSE, BUN, CREATININE, CA)2019-10-29 19:04:00 Test Item Value Reference Range Interpretation Comments NA (test code = 134 mmol/L 135-145 L 9702755638) K (test code = 4.3 mmol/L 3.5-5 6265424661) CL (test code = 105 mmol/L 98-108 7940771095) CO2 TOTAL (test code = 25 mmol/L 23-31 6333846034) AGAP (test code = 2-16 7719973330) BUN (test code = 25 mg/dL 7-23 H 2085238757) GLUCOSE (test code = 108 mg/dL 70-110 0961786327) CREATININE (test code = 1.61 mg/dL 0.6-1.25 H 6993452601) CALCIUM (test code = 8.9 mg/dL 8.6-10.6 4997364228) eGFR Calculation mL/min/1.73m2 (Non-) (test code = 3134883224) eGFR Calculation mL/min/1.73m2 () (test code = 8737615689) KRYSTAL (test code = KRYSTAL) Association of Glomerular Filtration Rate (GFR) and Staging of Kidney Disease* + --+ --+ ------+| GFR (mL/min/1.73 m2) ?| With Kidney Damage ?| ?Without Kidney Damage+ --------+ --------+ +| ?>90 ?| ?Stage one ?| ? Normal ?+ ---+ ---+ -------+| ?60-89 ?| ?Stage two ?| ? Decreased GFR ? + --+ --+ ------+| ?30-59 ?| ?Stage three ?| ? Stage three ? + --+ --+ ------+| ?15-29 ?| ?Stage four ? | ? Stage four ?+ ---+ ---+ -------+| ?<15 (or dialysis) ? ?| ?Stage five ? | ? Stage five ?+ ---+ ---+ -------+ *Each stage assumes the associated GFR level has been in effect for at least three months. ?Stages 1 to 5, with or without kidney disease, indicate chronic kidney disease. Notes: Determination of stages one and two (with eGFR >59mL/min/1.73 m2) requires estimation of kidney damage for at least three months as defined by structural or functional abnormalities of the kidney, manifested by either:Pathological abnormalities or Markers of kidney damage (including abnormalities in the composition of the blood or urine or abnormalities in imaging tests). Lab Interpretation Abnormal (test code = 72866-9) [facility] WITH [id number] 18:41:00 Test Item Value Reference Range Interpretation Comments WBC (test code = See_Comment H [Automated 6690-2) message] The system which generated this result transmit pacheco reference range : 4.20 - 10.70 10*3/?L. The reference range was not used to interpret this result as normal/abnormal . RBC (test code = See_Comment L [Automated 789-8) message] The system which generated this result transmit pacheco reference range : 4.26 - 5.52 10*6/?L. The reference range was not used to interpret this result as normal/abnormal . HGB (test code = 10.3 g/dL 12.2-16.4 L 718-7) HCT (test code = 29.7 % 38.4-49.3 L 4544-3) MCV (test code = 97.7 fL 81.7-95.6 H 787-2) MCH (test code = 33.9 pg 26.1-32.7 H 785-6) MCHC (test code = 34.7 g/dL 31.2-35 786-4) RDW-SD (test code = 44.7 fL 38.5-51.6 17748-6) RDW-CV (test code = 12.5 % 12.1-15.4 788-0) PLT (test code = See_Comment H [Automated 777-3) message] The system which generated this result transmit pacheco reference range : 150 - 328 10*3/ ?L. The reference range was not u sed to interpret th is result as normal/abnormal . MPV (test code = 9.4 fL 9.8-13 L 31580-9) NRBC/100 WBC (test See_Comment [Automat ed code = 4470675657) message] The system which generated this result transmit pacheco reference range : 0.0 - 10.0 /100 WBCs. The reference range was not used to interpret this result as normal/abnormal . NRBC x10^3 (test code <0.01 See_Comment [Auto mated = [id number]) message] The system which generated this result transmit pacheco reference range : 10*3/?L. The reference range was not used to interpret this result as normal/abnormal . GRAN MAT (NEUT) % 76.1 % (test code = 770-8) IMM GRAN % (test code 0.70 % = 8849690776) LYMPH % (test code = 17.2 % 736-9) MONO % (test code = 4.8 % 5905-5) EOS % (test code = 0.9 % 713-8) BASO % (test code = 0.3 % 706-2) GRAN MAT x10^3(ANC) 11.63 10*3/uL 1.99-6.95 H (test code = 2585989200) IMM GRAN x10^3 (test 0.10 10*3/uL 0-0.06 H code = 6946646501) LYMPH x10^3 (test code 2.63 10*3/uL 1.09-3.23 = 731-0) MONO x10^3 (test code 0.74 10*3/uL 0.36-1.02 = 742-7) EOS x10^3 (test code = 0.13 10*3/uL 0.06-0.53 711-2) BASO x10^3 (test code 0.04 10*3/uL 0.01-0.09 = 704-7) Lab Interpretation Abnormal (test code = 47225-6) [facility]-REACTIVE [id number] 18:05:00 Test Item Value Reference Range Interpretation Comments CRP (test code = 4993788852) 9.8 mg/dL <0.8 H Lab Interpretation (test code = Abnormal 20898-4) [facility]-REACTIVE [id number] 18:05:00 Test Item Value Reference Range Interpretation Comments CRP (test code = 9072208586) 8.7 mg/dL <0.8 H Lab Interpretation (test code = Abnormal 93545-2) [facility] 17:02:00 Test Item Value Reference Range Interpretation Comments Procalcitonin (test 0.89 ng/mL <0.07 H code = 2347501115) KRYSTAL (test code = KRYSTAL) INTERPRETATION OF PROCALCITONIN RESULTS IN ADULTS >= 18 YEARS OF AGE Initiation and discontinuation of antibiotics on patients with suspected or confirmed Lower Respiratory Tract Infection in Adults >= 18 years of age. + +-------- --------+ + -----+|Procalcitonin |Interpretation ?|Antibiotic ? ? |Considerations ? |ng/mL ? | ?|recommendation | ? + +-------- --------+ + -----+| <0.1 ? | Bacterial ? ? ?| Strongly ? ? ?| ? | ?| infection very | discouraged ? | Overruling: ? | ?| unlikely ? ? ? | ? | ? Clinically unstable ? ? ? + +-------- --------+ + ? High risk for adverse ? ? | <0.25 ?| Bacterial ? ? ?| Discouraged ? | ? outcome ? | ?| infection ? ? ?| ? | ? SEE IMPORTANT NOTE ?| ?| unlikely ? ? ? | ? | ? + +-------- --------+ + -----+| >=0.25 ? ? ? | Bacterial ? ? ?| Encouraged ? ?| ? | ?| infection ? ? ?| ? | ? | ?| likely ? | ? | Consider treatment failure ?+ +------- ---------+ -+ if levels does not decrease | >0.5 ? | Bacterial ? ? ?| Strongly ? ? ?| appropriately ? | ?| infection very | encouraged ? ?| ? | ?| likely ? | ? | ? + +-------- --------+ + -----+ Discontinuation of antibiotics in high-acuity patients with suspected or confirmed sepsis in Adults >= 18 years of age. + +-------- --------+ + -----+|Procalcitonin |Interpretation ?|Antibiotic ? ? |Considerations ? |ng/mL ? | ?|recommendation | ? + +-------- --------+ + -----+| <0.25 ?| Bacterial ? ? ?| Strongly ? ? ?| ? | ?| infection very | discouraged ? | Overruling: ? | ?| unlikely ? ? ? | ? | ? Clinically unstable ? ? ? + +-------- --------+ + ? High risk for adverse ? ? | <0.5 or drop | Bacterial ? ? ?| Discouraged ? | ? outcome ? | >80% from ? ?| infection ? ? ?| ? | ? SEE IMPORTANT NOTE ?| highest PCT ?| unlikely ? ? ? | ? | ? | level ?| ?| ? | ? + +-------- --------+ + -----+| >=0.5 ?| Bacterial ? ? ?| Encouraged ? ?| ? | ?| infection ? ? ?| ? | ? | ?| likely ? | ? | Consider treatment failure ?+ +------- ---------+ -+ if levels does not decrease | >1.0 ? | Bacterial ? ? ?| Strongly ? ? ?| appropriately ? | ?| infection very | encouraged ? ?| ? | ?| likely ? | ? | ? + +-------- --------+ + -----+ Percentage of drop of Procalcitonin calculation for Discontinuation of antibiotics in high-acuity patients with suspected or confirmed sepsis in Adults >= 18 years of age. ? Procalcitonin highest{}-Procalcitonin current{}Delta Procalcitonin = x100% ? Procalcitonin current {} IMPORTANT NOTE: Procalcitonin may be elevated without bacterial infection by physiologic stress related to trauma, chaudhary, chronic dialysis, metastatic cancer, surgery in the past seven days, malaria, some fungal infections, and some forms of vasculitis. The interpretation algorithm may not apply to patients with immunosuppression (equivalent of >10 mg of prednisone daily), HIV with CD4 cell count < 350 cells/mm3, active malignancy on systemic chemotherapy, solid organ transplant or hematopoietic stem cell transplantation, or hospital acquired pneumonia. Additionally, some clinical trials of procalcitonin have excluded patients with shock requiring vasopressor use, acute respiratory failure requiring mechanical ventilation, or those with known lung abscess/empyema. For further information please refer to:[email or web address] Lab Interpretation Abnormal (test code = 81381-0) [facility] HospitalMASOODFORMERLY [facility]ITALDONNA [id number] 11:45:00 Test Item Value Reference Range Interpretation Comments TROPONIN I (test <0.012 See_Comment [Automated code = 9591766679) message] The system which generated this result transmitted reference range : <=0.034 ng/mL. The reference range was not used to interpr et this result as normal/abnormal . KRYSTAL (test code = Equal or Less than KRYSTAL) 0.034 ng/ml---Normal ?Note: Cardiac troponin begins to rise 3-4 hours after the onset of ischemia. Repeat in 4-6 hours if the sample was drawn within 3-4 hours of the onset of the symptom and found normal. Between 0.035 and 0.120 ng/mL--- Borderline. Questionable myocardial injury or necrosis ? ?Note: Serial measurement may be necessary to confirm or exclude the diagnosis of myocardial injury or necrosis; Clinical correlation (symptoms, EKGs, imaging studies, and others) required; Repeat in 4-6 hours if clinically indicated. ? Equal or Higher than 0.121 ng/mL---Abnormal. Myocardial Injury or Necrosis Likely ? Biotin has been reported to cause a negative bias, interpret results relative to patient's use of biotin. ? Lab Interpretation Normal (test code = 84832-4) [facility] HospitalMagnesium [id number] 11:37:00 Test Item Value Reference Range Interpretation Comments MAGNESIUM (test code = 8172136697) 2.2 mg/dL 1.7-2.4 Lab Interpretation (test code = Normal 47480-0) [facility] HospitalLACTATE [id number] 11:33:00 Test Item Value Reference Range Interpretation Comments LDH (test code = 6357607604) 286 U/L 300-600 L Lab Interpretation (test code = Abnormal 56169-2) [facility] HospitalCT ABDOMEN PELVIS WO [id number] 03:50:56 Limited evaluation due to lack of intravenous contrast and scarcity ofmesenteric/body fat. 1. ?Circumferential right and proximal transverse colonic wall thickeningis nonspecific and may represent colitis. Correlate clinically. 2. ?Air-fluid level within the rectum. Correlate with symptoms of diarrhea. 3. ?Prominently distended stomach containing ingested material. However, noevidence of bowel obstruction. 4. ?Status post recent cholecystectomy with small amount of fluid withinthe gallbladder fossatracking inferiorly along the right pericolic gutter. 5. ?Diffusely hazy mesentery, nonspecific. 6. ?Additional findings as above. I, Raghu ?MD Qamar., have reviewed this study and agree with theabove report.EXAM: CT ABDOMEN/PELVIS WITHOUT CONTRAST HISTORY: ?Abd pain, acute, generalized s/p cholecystectomy ? COMPARISON: CT AP 11/19/2017. Ultrasound 10/10/2019 TECHNIQUE AND FINDINGS: Contiguous axial imaging from the level of the lungbases through the proximal thighs was performed without the intravenousadministration of contrast. Coronal and sagittal reconstructions wereobtained. ?Auto mA and/or iterative reconstruction were used to reduceradiation dose. FINDINGS: Limited evaluation of abdominal and pelvic organs due to lack ofintravenous contrast. LOWER THORAX: The lungs bases are clear. Suggestion of atheroscleroticcalcifications in LAD coronary artery distribution. LIVER: No focal hepaticlesions identified within limits of unenhancedtechnique. GALLBLADDER AND BILIARY TREE: Changes of cholecystectomy. The common ductmeasures 10 mm, likely secondary to reservoir phenomenon. Small amount offree fluid is seen along at the gallbladder fossa and inferior aspect ofthe liver tracking along the right pericolic gutter, presumably related torecent surgery. SPLEEN: No splenomegaly. PANCREAS: Prominence of the pancreatic duct at the level of the pancreaticneck measuring up to 4 mm (2:47), similar prior. ADRENAL GLANDS: Thickening of bilateral adrenal glands without discrete ormeasurable nodule.KIDNEYS: Mild right-sided pelviectasis versus extrarenal pelvis, unchangedcompared to the prior. No obstructing radiopaque stone is identified. Multiple punctate subcentimeter calcifications are noted w ithin the kidneysand renal vasculature, mostly likely representing vascular calcifications.Some of which may be nonobstructing stones. A 2.6 cm hypoattenuation in the left upper pole with simple fluid densityrepresents a cyst, previously 1.9 cm. More posteriorly there is a second1.0 cm simple cyst (2:45). PERITONEUM AND RETROPERITONEUM: No free air. Few streaky hazy mesentery.Small amount of fluid along the right upper quadrant and right pericolicgutter as above. LYMPH NODES: No lymphadenopathy. GI TRACT: Evaluation of pelvic viscera is severely limited due tosignificant beam hardening artifact from right hip arthroplasty. Moderateamount of fecal material seen within the rectum with air-fluid level.Findings may reflect diarrhea. Circumferential ascending colonic wall thickening with pericolonic fatstranding. Small amount of fluid within the left paracolic gutter, likelysecondary to adjacent inflammatory changes. Stomach is prominently distended with ingested material. PELVIS/BLADDER: Streak artifact from the right femoral arthroplastyhardware limits evaluation of the bladder and UPJ. VESSELS: Scattered moderate vascular calcifications within the infrarenalabdominal aorta. BONES AND SOFT TISSUES: Diffuse bone demineralization. Multilevel advanceddegenerative changes most prominent within the lower lumbar spine withevidence of L5-S1 discectomy and intervertebral disc spacer. Changes ofposterior spinal fusion of L4-L5 on the right with laminectomy (left-sidedscrews have been removed). Right hip hemiarthroplasty. Mixed sclerotic andradiolucent lesion within the right iliac bone appears unchanged whencompared to 2018. Cachexia. [facility], Radiant Results Inft User - 10/28/2019 10:52 PM CDTEXAM: CTABDOMEN/PELVIS WITHOUT CONTRASTHISTORY: Abd pain, acute, generalized s/p cholecystectomy COMPARISON:CT AP 11/19/2017. Ultrasound 10/10/2019TECHNIQUE AND FINDINGS: Contiguous axial imaging from the level of the lungbases through the proximal thighs was performed without the intravenousadministration of contrast. Coronal and sagittal reconstructions wereobtained. Auto mA and/or iterative reconstruction were used to reduceradiation dose.FINDINGS: Limited evaluation of abdominal and pelvic organs due to lack ofintravenous contrast.LOWER THORAX: The lungs bases are clear. Suggestion of atheroscleroticcalcifications in LAD coronary artery distribution.LIVER: No focal hepatic lesions identified within limits of unenhancedtechnique.GALLBLADDER AND BILIARY TREE: Changes of cholecystectomy. The common ductmeasures 10 mm, likely secondary to reservoir phenomenon. Small amount offree fluid is seen along at the gallbladder fossa and inferior aspect ofthe liver tracking along the right pericolic gutter, presumably related torecent surgery.SPLEEN: No splenomegaly.PANCREAS: Prominence of the pancreatic duct at the level of the pancreaticneck measuring up to 4 mm (2:47), similar prior.ADRENAL GLANDS: Thickeningof bilateral adrenal glands without discrete ormeasurable nodule. KIDNEYS: Mild right-sided pelviectasis versus extrarenal pelvis, unchangedcompared to the prior. No obstructing radiopaque stone is iden tified. Multiple punctate subcentimeter calcifications are noted within the kidneysand renal vasculature, mostly likely representing vascular calcifications.Some of which may be nonobstructing stones.A2.6 cm hypoattenuation in the left upper pole with simple fluid densityrepresents a cyst, previously1.9 cm. More posteriorly there is a second1.0 cm simple cyst (2:45).PERITONEUM AND RETROPERITONEUM: No free air. Few streaky hazy mesentery.Small amount of fluid along the right upper quadrant and right pericolicgutter as above.LYMPH NODES: No lymphadenopathy.GI TRACT: Evaluation of pelvic viscera is severely limited due tosignificant beam hardening artifact from right hip arthroplasty. Moderateamount of fecal material seen within the rectum with air-fluid level.Findings may reflect diarrhea. Circumferential ascending colonic wall thickening with pericolonic fatstranding. Small amount of fluid within the left paracolic gutter, likelysecondary to adjacent inflammatory changes.Stomach is prominentlydistended with ingested material.PELVIS/BLADDER: Streak artifact from the right femoral arthroplastyhardware limits evaluation of the bladder and UPJ.VESSELS: Scattered moderate vascular calcificationswithin the infrarenalabdominal aorta. BONES AND SOFT TISSUES: Diffuse bone demineralization. Multilevel advanceddegenerative changes most prominent within the lower lumbar spine withevidence of L5-S1 discectomy and intervertebral disc spacer. Changes ofposterior spinal fusion of L4-L5 on the right with laminectomy (left-sidedscrews have been removed). Right hip hemiarthroplasty. Mixed sclerotic andradiolucent lesion within the right iliac bone appears unchanged whencompared to 2018.Cachexia.IMPRESSIONLimited evaluation due to lack of intravenous contrast and scarcity ofmesenteric/body fat.1. Circumferential right and proximal transverse colonic wall thickeningis nonspecific and may represent colitis. Correlate clinically.2. Air-fluid level within the rectum. Correlate with symptoms of diarrhea.3.Prominently distended stomach containing ingested material. However, noevidence of bowel obstruction.4. Status post recent cholecystectomy with small amount of fluid withinthe gallbladder fossa tracking inferiorly along the right pericolic gutter.5. Diffusely hazy mesentery, nonspecific.6. Additional findings as above.I, Raghu Foote MD., have reviewed this study and agree with theabove report.[facility] HospitalLACTATE [id number] 03:33:00 Test Item Value Reference Range Interpretation Comments LDH (test code = 4854039710) 444 U/L 300-600 Lab Interpretation (test code = Normal 13499-0) [facility] HospitalD-[id number] 02:07:00 Test Item Value Reference Interpretation Comments Range D-DIMER (test code = See_Comment H [Autom ated 6292055636) message] The system which generated this result transmitted reference range : <0.41 ?g/mL (FEU). The reference range was not used to interpret this result as normal/abnormal . KRYSTAL (test code = This test may be KRYSTAL) used in conjunction with a clinical pretest probability (PTP) assessment model to exclude venous thromboembolism (VTE) in patients suspected of deep venous thrombosis (DVT) and pulmonary embolism (PE) A D-Dimer value less than 0.50 ?g/ml (FEU) has a negative predicative value of 96 to 100% (95% CI)and 97 to 100% (95% CI) as an aid in the diagnosis of deep vein thrombosis (DVT) and pulmonary embolism when there is low or moderate pretest probability of PE or DVT. D-Dimer values are expressed in initial fibrinogen equivalent units (FEU)" The assay results should be used with other information, including the clinical context, in forming a diagnosis. Lab Interpretation Abnormal (test code = 74581-2) [facility] HospitalProthrombin Time / [id number] 01:55:00 Test Item Value Reference Range Interpretation Comments PROTIME PATIENT (test See_Comment [Auto mated message] code = 5964-2) The system wh ich generated this result transmitted ref erence range: 12.0 - 1 4.7 Seconds. The re ference range was not u sed to interpret this result as normal/abnor mal. INR (test code = 6301-6) Nor mal INR <1.1; Warfarin Therap eutic range 2.0 to 3. 0 or 2.5 to 3.5, dep ending upon the indica tions. Lab Interpretation (test Normal code = 99904-4) [facility] HospitalFERRITIN [id number] 23:57:00 Test Item Value Reference Range Interpretation Comments FERRITIN (test code = 349.0 ng/mL 1846 [id number]) KRYSTAL (test code = KRYSTAL) Biotin has been reported to cause a negative bias, interpret results relative to patient's use of biotin. Lab Interpretation (test Normal code = 70742-3) [facility] HospitalTROPONIN [id number] 23:34:00 Test Item Value Reference Range Interpretation Comments TROPONIN I (test <0.012 See_Comment [Automated code = 3936285155) message] The system which generated this result transmitted reference range : <=0.034 ng/mL. The reference range was not used to interpr et this result as normal/abnormal . KRYSTAL (test code = Equal or Less than KRYSTAL) 0.034 ng/ml---Normal ?Note: Cardiac troponin begins to rise 3-4 hours after the onset of ischemia. Repeat in 4-6 hours if the sample was drawn within 3-4 hours of the onset of the symptom and found normal. Between 0.035 and 0.120 ng/mL--- Borderline. Questionable myocardial injury or necrosis ? ?Note: Serial measurement may be necessary to confirm or exclude the diagnosis of myocardial injury or necrosis; Clinical correlation (symptoms, EKGs, imaging studies, and others) required; Repeat in 4-6 hours if clinically indicated. ? Equal or Higher than 0.121 ng/mL---Abnormal. Myocardial Injury or Necrosis Likely ? Biotin has been reported to cause a negative bias, interpret results relative to patient's use of biotin. ? Lab Interpretation Normal (test code = 03044-7) [facility] HospitalPhosphorus [id number] 23:21:00 Test Item Value Reference Range Interpretation Comments PHOSPHORUS (test code = 9476603942) 2.3 mg/dL 2.5-5 L Lab Interpretation (test code = Abnormal 76619-0) [facility] HospitalUrinalysis2020-07-11 20:53:00 Test Item Value Reference Range Interpretation Comments APPEARANCE (test code = Clear Clear 8507135571) COLOR (test code = Yellow Yellow 4972734298) PH (test code = 4.8-8.0 9913386837) SP GRAVITY (test code = 1.003-1.030 0332173070) GLU U QUAL (test code = 50 mg/dL Normal A 7549506920) BLOOD (test code = Negative Negative 8470003419) KETONES (test code = Negative Negative 9917051477) PROTEIN (test code = Negative Negative 2887-8) UROBILIN (test code = Normal Normal 4276544246) BILIRUBIN (test code = Negative Negative 9904908586) NITRITE (test code = Negative Negative 3388847641) LEUK BONNIE (test code = Negative Negative 9737833800) RBC/HPF (test code = See_Comment [Autom ated message] 6410630698) The system Schedulize generated this result transmitted ref erence range: 0 - 3 HP F. The reference range was not used to int erpret this result as normal/abnormal . WBC/HPF (test code = See_Comment [Autom ated message] 0813816659) The system Schedulize generated this result transmitted ref erence range: 0 - 5 HP F. The reference range was not used to int erpret this result as normal/abnormal . BACTERIA (test code = Negative Negative 1396536729) SQ EPITH (test code = <1 HPF 7062410322) HYAL CAST (test code = See_Comment H [Aut omated message] 9667656340) The system Schedulize generated this result transmitted ref erence range: <=2 LPF. The reference range was not used to int erpret this result as normal/abnormal . Lab Interpretation (test Abnormal code = 17512-1) [facility] HospitalCLOSTRIDIUM DIFFICILE [id number] 19:32:00 Test Item Value Reference Range Interpretation Comments Clostridioides (Clostridium) Negative Negative difficile (test code = 05030-7) Lab Interpretation (test code = Normal 54589-8) [facility] HospitalLactic Acid Whole [id number] 18:24:00 Test Item Value Reference Range Interpretation Comments LACTIC ACID (test code = 1.59 mmol/L 9453312092) [facility] HospitalCBC WITH [id number] 18:06:00 Test Item Value Reference Range Interpretation Comments WBC (test code = See_Comment H [Automated 3190-2) message] The system which generated this result transmit pacheco reference range : 4.20 - 10.70 10*3/?L. The reference range was not used to interpret this result as normal/abnormal . RBC (test code = See_Comment L [Automated 109-8) message] The system which generated this result transmit pacheco reference range : 4.26 - 5.52 10*6/?L. The reference range was not used to interpret this result as normal/abnormal . HGB (test code = 11.6 g/dL 12.2-16.4 L 718-7) HCT (test code = 32.9 % 38.4-49.3 L 4544-3) MCV (test code = 94.3 fL 81.7-95.6 787-2) MCH (test code = 33.2 pg 26.1-32.7 H 785-6) MCHC (test code = 35.3 g/dL 31.2-35 H 786-4) RDW-SD (test code = 41.6 fL 38.5-51.6 98526-7) RDW-CV (test code = 12.0 % 12.1-15.4 L 788-0) PLT (test code = See_Comment H [Automated 777-3) message] The system which generated this result transmit pacheco reference range : 150 - 328 10*3/ ?L. The reference range was not u sed to interpret th is result as normal/abnormal . MPV (test code = 9.8 fL 9.8-13 70540-7) NRBC/100 WBC (test See_Comment [Automat ed code = 8191846357) message] The system which generated this result transmit pacheco reference range : 0.0 - 10.0 /100 WBCs. The reference range was not used to interpret this result as normal/abnormal . NRBC x10^3 (test code <0.01 See_Comment [Auto mated = 8400835246) message] The system which generated this result transmit pacheco reference range : 10*3/?L. The reference range was not used to interpret this result as normal/abnormal . GRAN MAT (NEUT) % 67.8 % (test code = 770-8) IMM GRAN % (test code 1.40 % = 9838205020) LYMPH % (test code = 24.0 % 736-9) MONO % (test code = 4.8 % 5905-5) EOS % (test code = 1.4 % 713-8) BASO % (test code = 0.6 % 706-2) GRAN MAT x10^3(ANC) 12.82 10*3/uL 1.99-6.95 H (test code = 4043968343) IMM GRAN x10^3 (test 0.27 10*3/uL 0-0.06 H code = 2077459734) LYMPH x10^3 (test code 4.55 10*3/uL 1.09-3.23 H = 731-0) MONO x10^3 (test code 0.91 10*3/uL 0.36-1.02 = 742-7) EOS x10^3 (test code = 0.26 10*3/uL 0.06-0.53 711-2) BASO x10^3 (test code 0.11 10*3/uL 0.01-0.09 H = 704-7) Lab Interpretation Abnormal (test code = 86187-2) [facility] HospitalLipase, [id number] 17:42:00 Test Item Value Reference Range Interpretation Comments LIPASE (test code = 8737174792) 83 U/L 0-220 Lab Interpretation (test code = Normal 59583-5) [facility] HospitalCOVID-19 (ID NOW RAPID TESTING)2019-10-28 17:42:00 Test Item Value Reference Range Interpretation Comments SARS-CoV-2 Rapid ID NOW Positive Not Detected A (test code = 45507-8) KRYSTAL (test code = KRYSTAL) ID NOW COVID-19 Assay is an isothermal nucleic acid amplification test intended for the qualitative detection of nucleic acid from SARS-CoV-2 viral RNA in nasopharyngeal (COIL WINDER REPAIR) specimens. It is used under Emergency Use Authorization (EUA) by FDA. The limit of detection (LOD) of the assay is 125 Genome Equivalents/mL. A positive result is indicative of the presence of SARS-CoV-2 RNA. ?Clinical correlation with patient history and other diagnostic information is necessary to determine patient infection status. A negative (Not Detected) result does not preclude SARS-CoV-2 infection. In patients with clinical symptoms and other tests that are consistent with SARS-CoV-2 infection, negative results should be treated as presumptive negative and a new specimen should be tested with alternative PCR molecular test. Invalid: Please collect a new specimen for repeat patient testing if clinically indicated. Lab Interpretation Abnormal (test code = 41848-9) [facility] [id number] 17:42:00 Test Item Value Reference Range Interpretation Comments NA (test code = 137 mmol/L 135-145 2180564693) K (test code = 4.6 mmol/L 3.5-5 0045472064) CL (test code = 103 mmol/L 98-108 6893690140) CO2 TOTAL (test code = 19 mmol/L 23-31 L 8252657960) AGAP (test code = 2-16 2422417604) BUN (test code = 35 mg/dL 7-23 H 4588247193) GLUCOSE (test code = 171 mg/dL 70-110 H 1239899457) CREATININE (test code = 2.36 mg/dL 0.6-1.25 H 7228206792) TOTAL BILI (test code = 0.8 mg/dL 0.1-1.3 4248068041) CALCIUM (test code = 10.5 mg/dL 8.6-10.6 3662015414) T PROTEIN (test code = 8.2 g/dL 6.3-8.2 8494617354) ALBUMIN (test code = 4.3 g/dL 3.5-5 7686198469) ALK PHOS (test code = 378 U/L 34-122 H 8573371643) ALTv (test code = 32 U/L 5-50 1742-6) AST(SGOT) (test code = 43 U/L 13-40 H 4182943802) eGFR Calculation mL/min/1.73m2 (Non-) (test code = 8929677505) eGFR Calculation mL/min/1.73m2 () (test code = 5024545103) KRYSTAL (test code = KRYSTAL) Association of Glomerular Filtration Rate (GFR) and Staging of Kidney Disease* + --+ --+ ------+| GFR (mL/min/1.73 m2) ?| With Kidney Damage ?| ?Without Kidney Damage+ --------+ --------+ +| ?>90 ?| ?Stage one ?| ? Normal ?+ ---+ ---+ -------+| ?60-89 ?| ?Stage two ?| ? Decreased GFR ? + --+ --+ ------+| ?30-59 ?| ?Stage three ?| ? Stage three ? + --+ --+ ------+| ?15-29 ?| ?Stage four ? | ? Stage four ?+ ---+ ---+ -------+| ?<15 (or dialysis) ? ?| ?Stage five ? | ? Stage five ?+ ---+ ---+ -------+ *Each stage assumes the associated GFR level has been in effect for at least three months. ?Stages 1 to 5, with or without kidney disease, indicate chronic kidney disease. Notes: Determination of stages one and two (with eGFR >59mL/min/1.73 m2) requires estimation of kidney damage for at least three months as defined by structural or functional abnormalities of the kidney, manifested by either:Pathological abnormalities or Markers of kidney damage (including abnormalities in the composition of the blood or urine or abnormalities in imaging tests). Lab Interpretation Abnormal (test code = 79884-2) [facility] ABDOMEN [id number] 16:52:18HISTORY: ? Abdominal pain. TECHNIQUE: Upper abdominal organs were evaluated in multiple planes withthe patient in multiple different positions, without and with colorimaging. FINDINGS: Comparison has been made with CT scan of 11/19/2017 and ultrasoundstudy of 09/02/2017. Liver is 14.4 cm, spleen is 8.2 x3.8 cm, right kidney is 9.3 x 4.3 x 4.6cm and left kidney is 9.2 x 4.7 x 4.9 cm in size. Cortex of both kidneysrange between 10 mm and 11 mm. Cysts noted in the left kidney, largest is 2.4 cm with focal calcificationsand septations, consistent with Bosniak type II cystic lesion, unchanged.The remaining cysts in the left kidney are 12 mm and 9 mm, consistent withBosniak type I cystic lesions. 10 mm cyst in the right kidney is alsounchanged. No hydronephrosis, free fluid in the upper abdomen or aorticaneurysm detected. Visualized portions of the pancreas appear normal.Hepatic and portal venous systemappear patent, with hepatopetal portalflow noted. Gallbladder appears to be moderately distended, consistent with hydropicgallbladder, measuring approximately 11.3 x 4 cm with echogenic biliarysludge, biliary crystals and several very small gallstones in the dependentportion of its lumen. Common hepatic duct is 3.2 mm. CONCLUSIONS:1. Hydropic gallbladder with biliary sludge several very small gallstones.No sonographic signs of acute cholecystitis.2. Bilateral renal cysts. Mildly echogenic cortex of both kidneys,unchanged. No hydronephrosis. [facility], Radiant Results Inft User - 10/10/2019 11:53 AM CDTHISTORY: Abdominal pain.TECHNIQUE: Upper abdominal organs were evaluated in multiple planes withthe patient in multiple different positions, without and with colorimaging.FINDINGS: Comparison has been made with CT scan of 11/19/2017 and ultrasoundstudy of 09/02/2017.Liver is 14.4 cm, spleen is 8.2 x 3.8 cm, right kidney is 9.3 x 4.3 x 4.6cm and left kidney is 9.2 x 4.7 x 4.9 cm in size. Cortex of both kidneysrange between 10 mm and 11 mm.Cysts noted in the left kidney, largest is 2.4 cm with focal calcifi cationsand septations, consistent with Bosniak type II cystic lesion, unchanged.The remaining cysts in the left kidney are 12 mm and 9 mm, consistent withBosniak type I cystic lesions. 10 mm cyst in the right kidney is alsounchanged. No hydronephrosis, free fluid in the upper abdomen or aorticaneurysmdetected. Visualized portions of the pancreas appear normal.Hepatic and portal venous system appear patent, with hepatopetal portalflow noted.Gallbladder appears to be moderately distended, consistent with hydropicgallbladder, measuring approximately 11.3 x 4 cm with echogenic biliarysludge, biliary crystals and several very small gallstones in the dependentportion of its lumen. Common hepatic duct is 3.2 mm.CONCLUSIONS:1. Hydropic gallbladder with biliary sludge several very small gallstones.No sono graphic signs of acute cholecystitis.2. Bilateral renal cysts. Mildly echogenic cortex of both kidneys,unchanged. No hydronephrosis.[facility]
[2023-02-20] MEDS ORDERED: FLUORESCEIN SODIUM 1 MG/WRAP ONE (10:46)
[2023-02-20] MEDS ORDERED: TETRACAINE HCL 0.5% 4ML OPTH ONE (11:25)
--- NOTE | 2023-02-20 11:49 | EDPHYS ---
Physician Documentation [facility] Name: Jason Winston Age: 77 yrs Sex: Male : 1945 Arrival Date: 02/20/2023 Time: 10:21 Bed 11 Private MD: ED Physician Jose Vaughan HPI: 02/20 10:46 This 77 yrs old Male presents to ER via Ambulatory with complaints of Eye Problem. rn 10:46 The patient is experiencing foreign body sensation, to the left eye, caused by debris, rn an unknown mechanism. Onset: The symptoms/episode began/occurred 2 day(s) ago. Duration: the symptoms are continuous. Aggravated by nothing. Alleviated by blinking, Rubbing eye. Associated signs and symptoms: Pertinent negatives: fever. Patient does not utilize any form of vision correction. Severity of symptoms: At their worst the symptoms were moderate in the emergency department the symptoms are unchanged. The patient has not experienced similar symptoms in the past. Patient reports was out working in the past year 2 days ago when something blew into his eye. Denies any high-speed injury. Was working on tractor. Reports only left eye affected. Patient also reports has been to several urgent care and emergency room's that have not been able to help him with this problem. Patient reports feels that in the left lower portion of his eye/eyelid. No vision changes. No fever.. Historical: - Allergies: 10:30 PENICILLINS; iw - PMHx: 10:30 Hypertensive disorder; iw - PSHx: 10:30 back X 9; hand X 8; iw - Immunization history:: Adult Immunizations unknown. - Family history:: not pertinent. - Social history:: Smoking status: unknown. - Hospitalizations: : No recent hospitalization is reported. ROS: 10:46 Constitutional: Negative for fever, chills, and weight loss, Eyes: Positive for left rn eye foreign body sensation Exam: 10:46 Constitutional: This is a well developed, well nourished patient who is awake, alert, rn and in no acute distress. Head/Face: Normocephalic, atraumatic. Eyes: No corneal deformity noted. Small white foreign object noted in the lateral inferior eyelid, seems embedded as did not budge with irrigation and attempted Q-tip removal without success. Vital Signs: 10:29 BP 143 / 82; Pulse 91; Resp 16; Temp 98.1; Pulse Ox 96% on R/A; iw MDM: 10:26 Patient medically screened. rn 11:47 Differential diagnosis: Corneal abrasion of Foreign body in Data reviewed: vital signs, rn nurses notes, and as a result, I will discharge patient. Counseling: I had a detailed discussion with the patient and/or guardian regarding the historical points, exam findings, and any diagnostic results supporting the discharge/admit diagnosis, the need for outpatient follow up, to return to the emergency department if symptoms worsen or persist or if there are any questions or concerns that arise at home. Response to treatment: the patient's symptoms have mildly improved after treatment, and as a result, I will discharge patient. Special discussion: I discussed with the patient/guardian in detail that at this point there is no indication for admission to the hospital. It is understood, however, that if the symptoms persist or worsen the patient needs to return immediately for re-evaluation. ED course: Patient with improvement after tetracaine and irrigation. But unable to remove suspected foreign body, appears embedded. Has been in eye for longer than 2 nights now. Recommend ophthalmologic follow-up. Administered Medications: No medications were administered Disposition Summary: 02/20/23 11:49 Discharge Ordered Notes: Location: Home rn Problem: new rn Symptoms: have improved rn Condition: Stable rn Diagnosis - Foreign body in conjunctival sac, left eye, initial encounter rn Followup: rn - With: Juan Salas MD - When: As needed - Reason: Recheck today's complaints, Re-evaluation by your physician Discharge Instructions: - Discharge Summary Sheet rn - Eye Foreign Body rn Forms: - Medication Reconciliation Form rn - Thank You Letter rn - Antibiotic pharmacist intern - Prescription Opioid Use rn - Patient Portal Instructions rn - Leadership Thank You Letter rn Signatures: Whitney Smart RN RN iw Jose Vaughan MD MD crucible furnace 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 Head/Face: Normocephalic, atraumatic. Eyes: No corneal deformity noted. rn
--- NOTE | 2023-02-20 11:49 | ER ---
Nurse's Notes [facility] Name: Jason Winston Age: 77 yrs Sex: Male : 1945 Arrival Date: 02/20/2023 Time: 10:21 Bed 11 Private MD: Diagnosis: Foreign body in conjunctival sac, left eye, initial encounter Presentation: 02/20 10:29 Chief complaint: Patient states: feels like there is something in hi left eye, was iw working out in the field night before last. Coronavirus screen: At this time, the client does not indicate any symptoms associated with coronavirus-19. Ebola Screen: Patient negative for fever greater than or equal to 101.5 degrees Fahrenheit, and additional compatible Ebola Virus Disease symptoms Patient denies exposure to infectious person. Patient denies travel to an Ebola-affected area in the 21 days before illness onset. No symptoms or risks identified at this time. Initial Sepsis Screen: Does the patient meet any 2 criteria? No. Patient's initial sepsis screen is negative. Does the patient have a suspected source of infection? No. Patient's initial sepsis screen is negative. Risk Assessment: Do you want to hurt yourself or someone else? Patient reports no desire to harm self or others. 10:29 Method Of Arrival: Ambulatory iw 10:29 Acuity: SHADI 4 iw 10:35 Onset of symptoms is unknown. iw Historical: - Allergies: 10:30 PENICILLINS; iw - PMHx: 10:30 Hypertensive disorder; iw - PSHx: 10:30 back X 9; hand X 8; iw - Immunization history:: Adult Immunizations unknown. - Family history:: not pertinent. - Social history:: Smoking status: unknown. - Hospitalizations: : No recent hospitalization is reported. Screenin:35 [facility] ED Fall Risk Assessment (Adult) Score/Fall Risk Level 0 - 2 = Low Risk. Abuse iw screen: Denies threats or abuse. Denies injuries from another. Nutritional screening: No deficits noted. Tuberculosis screening: No symptoms or risk factors identified. Assessment: 10:35 General: Appears in no apparent distress. Behavior is calm, cooperative. Pain: iw Complains of pain in left eye. Neuro: Level of Consciousness is awake, alert, obeys commands, Oriented to person, place, time, situation, Moves all extremities. Full function. Vital Signs: 10:29 BP 143 / 82; Pulse 91; Resp 16; Temp 98.1; Pulse Ox 96% on R/A; iw ED Course: 10:24 Patient arrived in ED. rg4 10:26 Jose Vaughan MD is Attending Physician. rn 10:30 Triage completed. iw 10:30 Arm band placed on. iw 10:34 Whitney Smart RN is Primary Nurse. iw 11:48 Juan Salas MD is Referral Physician. rn 11:59 Patient has correct armband on for positive identification. Provided Education on: . iw 12:00 Assist provider with eye exam of left eye. iw 12:00 IV discontinued, intact, bleeding controlled, No redness/swelling at site. Pressure iw dressing applied. Administered Medications: No medications were administered Medication: 11:58 VIS not applicable for this client. iw Outcome: 11:49 Discharge ordered by MD. rn 12:00 Discharged to home ambulatory, iw 12:00 Condition: good 12:00 Discharge instructions given to patient, Instructed on discharge instructions, follow up and referral plans. Demonstrated understanding of instructions, follow-up care, 12:01 Patient left the ED. iw Signatures: Whitney Smart, JING RN iw Jose Vaughan MD MD rn Garcia, Rubi rg4 Corrections: (The following items were deleted from the chart) 10:30 10:30 Allergies: No Known Allergies; iw iw 19:21 10:10 Assist provider with eye exam of left eye. iw iw
[2023-02-20 12:18] VITALS: BP 143/82; TEMP 98.1; O2SAT 96
== END 2023-02-20 12:01 | disposition home or self-care (01) ==
LOC: ER 10:21
DX: T15.12XA Foreign body in conjunctival sac, left eye, initial encounter (principal); I10 Essential (primary) hypertension; Z88.0 Allergy status to penicillin
CPT/HCPCS: 99283